=== PATIENT | male | born 1985 | race Caucasian/White ===

== ENCOUNTER 2017-03-08 09:40 | Inpatient (IN) ==
[2017-03-08] MEDS ORDERED: Ondansetron 4 MG/2 ML VIAL IVP ONE (10:01)
[2017-03-08] MEDS ORDERED: 0.9 % Sodium Chloride 1,000 ML IVC ONE ×3 (10:01→17:03)
--- NOTE | 2017-03-08 10:10 | Emergency Department Note ---
Disposition Clinical Impression: Kidney calculus, TESSIE (acute kidney injury), Acidosis, metabolic Disposition: Admitted As Inpatient Condition: Fair Abdominal Pain HPI - General Chief Complaint: ED Abdominal Pain Stated Complaint: vomiting Time Seen by Provider: 03/08/17 09:49 Source: patient Mode of arrival: ambulatory Limitations: no limitations Nursing Notes Reviewed: Yes Vital Signs Reviewed: Yes - History of Present Illness HPI Narrative: Patient presents to the ED with the chief complaint of abdominal pain and vomiting. Patient has a history of HIV that he states is well-controlled. He has had chronic, abdominal pain, but over the last few days has had new pain. He states that approximately 5 days ago he started having a decreased appetite, nausea and vomiting. Reports that it got significantly worse over the last 2 days. He reports that he has vomited probably 30 times in the last 48 hours. Nonbloody, but does state that it is bilious and is yellow. He said problems of his gallbladder before and is scheduled to get an ultrasound soon pending insurance approval. He is also had subjective fevers and chills. Has had decreased appetite. States his been unable to eat or drink anything in the last 24 hours and feels very dehydrated. He has not had any diarrhea. He does complain of some difficulty in urination. He has had a previous history of kidney stones about 6 or 7 months ago on the right and has an atrophied kidney on the left and is unsure if this could be related. There is no headache, changes in vision, neck stiffness, chest pain, difficulty breathing, penile discharge, pain or swelling of legs. He does have a history of hidradenitis from his HIV and states that he had a flareup on his scrotum a few days ago but has since resolved. Otherwise, there is no testicular pain. Pain Scale: 0 - Related Data Home Medications Medication Instructions Recorded Confirmed Cetirizine HCl [Zyrtec] 10 mg PO DAILY 03/08/17 03/08/17 Citalopram Hydrobromide [Celexa] 40 mg PO DAILY 03/08/17 03/08/17 Cyprohepatdine [Periactin] 4 mg PO BID 03/08/17 03/08/17 Divalproex Sodium [Depakote] 250 mg PO HS 03/08/17 03/08/17 Doxepin HCl 10 mg PO HS 03/08/17 03/08/17 Doxycycline 100 mg PO BID 03/08/17 03/08/17 Dronabinol [Marinol] 2.5 mg PO BID 03/08/17 03/08/17 Efavirenz/Emtricitab/Tenofovir 1 tab PO DAILY 03/08/17 03/08/17 [Atripla Tablet] Gabapentin [Neurontin] 800 mg PO QID 03/08/17 03/08/17 Glycopyrrolate [Robinul] 1 mg PO BID 03/08/17 03/08/17 HydrOXYzine Pamoate [Vistaril] 50 mg PO BID 03/08/17 03/08/17 L. Acidophilus/Pectin, [place] 1 cap PO DAILY 03/08/17 03/08/17 [Acidophilus Probiotic Capsule] Meloxicam [Mobic] 15 mg PO DAILY 03/08/17 03/08/17 Mirtazapine [Remeron] 15 mg PO HS 03/08/17 03/08/17 Pnv with Ca,No.72/Iron/FA [Pnv 1 tab PO DAILY 03/08/17 03/08/17 Plus Multivit Tab] Pregabalin [Lyrica] 150 mg PO BID 03/08/17 03/08/17 Allergies Allergy/AdvReac Type Severity Reaction Status Date / Time Cefaclor [From [facility]] Allergy Hives Verified 03/08/17 11:47 All systems ED: reviewed and negative except as stated. Constitutional: Reports: fever (subjective), chills Eyes: Denies: vision change Cardiovascular: Denies: chest pain Respiratory: Denies: cough, dyspnea Gastrointestinal: Reports: as per HPI, abdominal pain, nausea, vomiting. Denies : diarrhea, constipation, hematemesis, melena, hematochezia Genitourinary: Reports: as per HPI, genital lesions. Denies: hematuria, testicular pain Musculoskeletal: Denies: back pain, neck pain Integumentary: Reports: rash Neurological: Denies: headache Endocrine: Reports: fatigue Hematological/Lymphatic: Denies: easy bleeding, easy bruising Abdominal Pain PMH - Past Medical History Medical history: Reports: HIV/AIDS Male Surgical History: Reports: other - Social History Smoking status: Current every day smoker Alcohol use: Reports: none Drug use: Reports: none Physical Exam - General Limitations: no limitations General appearance: alert, in no apparent distress - Head Head exam: atraumatic, normocephalic, normal inspection - Eye Eye exam: Present: normal appearance, PERRL, EOMI - ENT ENT exam: normal exam, normal oropharynx, mucous membranes moist - Neck Neck exam: Present: normal inspection, full ROM, trachea midline. Absent: meningismus - Chest Chest inspection: Present: normal inspection, symmetric chest wall rise - Respiratory Respiratory exam: Present: normal lung sounds bilaterally - Cardiovascular Cardiovascular exam: Present: regular rate, normal rhythm, normal heart sounds - Abdominal Exam Abdominal exam: Present: soft, tenderness, guarding, hypoactive bowel sounds, tenderness at McBurney's Point, other (Hidradenitis lesions on stomach, report well controlled). Absent: distention, rebound, rigidity, organomegaly, Pimentel' s sign, Rovsing's sign Abdominal tenderness: Present: RLQ, moderate - Male exam: Present: other (Patient deferred) - Extremities Exam Extremities exam: Present: normal inspection, full ROM. Absent: tenderness, pedal edema - Expanded Lower Extremity Exam Hip/Pelvis exam: Present: pelvis stable - Neurological Exam Neurological exam: Present: alert, oriented X3 - Psychiatric Psychiatric exam: Present: normal affect, normal mood - Skin Skin exam: Present: warm, dry, intact, rash (Hidradenitis to abdomen, reports similar lesion on scrotum but deferred evaluation), other (slightly jaundiced). Absent: normal color, cyanosis, diaphoresis Course - Reevaluation(s) Reevaluation #1: Spoke with Dr. Meier with urology. Wanted to keep him NPO, talk with IR about possible nephrostomy tube and admit the hospitalist service. He may also require stenting later today. Spoke to the hospitalist and accepted admission. Urinalysis is pending due to Simon placement. Time: 11:39 Vital Signs Temperature 97.5 F L 03/08/17 09:41 Pulse Rate 81 03/08/17 09:41 Respiratory Rate 16 03/08/17 09:41 Blood Pressure 113/83 03/08/17 09:41 O2 Sat by Pulse Oximetry 100 03/08/17 09:41 Temperature 97.4 F L 03/08/17 14:21 Pulse Rate 79 03/08/17 14:21 Respiratory Rate 16 03/08/17 14:21 Blood Pressure 107/68 03/08/17 14:21 O2 Sat by Pulse Oximetry 98 03/08/17 14:22 Oxygen Delivery Oxygen Delivery Room Air Abdominal Pain - MDM Narrative Medical decision making narrative: I examined this patient and my medical decision-making was reviewed with the HORSE GROOMER/PA/Advanced Practice Nurse/Resident Physician. I agree with the documented findings, disposition and treatment plan as described except to the extent set forth below. Patient seen and evaluated by Dr. Houston and myself, please see his evaluation and management plan, I supervised the care of the patient outstay. Patient presents with lower abdominal pain nausea and vomiting. History of abdominal pain in the past as well as HIV. He states is no ill contacts at home. Retro-to make him more comfortable check labs he most likely will need a CT of his abdomen. He is in agreement with this plan. 1040 hrs.: Patient's labs are coming back. His creatinine has changed from 1.5 about a year ago to 7.4. He is also acidotic which I am thinking is probably due to his uremia. He does not show any signs of an infection. Is not febrile here. Organic continuous fluid CT his abdomen and then reassess. Then we will speak with nephrology and hospitalist for admission. 1130 hrs.: Abdomen/Pelvis CT 03/08/17 10:39 IMPRESSION: 4 mm proximal right ureteral stone causing moderate hydroureteronephrosis. D/ / Kiet Hernandez MD / Kiet Hernandez MD Interpreting Provider: Kiet Hernandez MD Spoke with urology, they are going to see the patient and they want him Nothing by mouth placing a Simon to help relieve his urinary retention and then they are going to see if they can do a stent today. We are speaking the hospitalist for admission. 1210 hrs.: Patient's urine is back no signs of infection does have blood in the urine. IR is ready for the patient so they will go over to IR first for the procedure and then if we have a bed ready for and they will go upstairs if not making come back to the emergency department. Patient's critical care time excluding separately billable procedures is 35 minutes. - Lab Data Result diagrams: 03/08/17 10:11 03/08/17 10:11 Lab Results 03/08/17 03/08/17 03/08/17 Range/Units 10:11 10:11 10:11 WBC 7.4 (4.3-11.1) K/mcL RBC 3.32 L (4.19-5.50) M/mcL Hgb 11.7 L (12.9-16.9) g/dL Hct 34.7 L (37.5-50.1) % MCV 104.5 H (83.0-100.0) fL MCH 35.2 H (28.0-33.3) pg MCHC 33.7 (31.6-35.5) g/dL RDW 14.6 H (11.5-14.5) % Plt Count 291 (140-400) K/mcL MPV 9.5 (9.4-12.4) fL Immature Gran % 2.0 (0-4) % Seg Neutrophils % 82.7 % Lymphocytes % 11.5 % Monocytes % 3.4 % Eosinophils % 0.1 % Basophils % 0.3 % Neutrophils # 6.1 (1.6-8.9) K/mcL Lymphocytes # 0.9 (0.6-4.6) K/mcL Monocytes # 0.3 (0.0-1.3) K/mcL Eosinophils # 0.0 (0.0-0.6) K/mcL Basophils # 0.0 (0.0-0.2) K/mcL PT 11.4 (9.4-12.1) Seconds INR 1.1 Sodium 138 (136-145) mEq/L Potassium 4.2 (3.5-4.5) mEq/L Chloride 115 H (98-109) mEq/L Carbon Dioxide 13 L (19-29) mEq/L BUN 52 H (8-26) mg/dL Creatinine 7.37 H (0.72-1.25) mg/dL Est GFR ( Amer) 10 L (> 60) Est GFR (Non-Af Amer) 9 L (> 60) BUN/Creatinine Ratio 7 (6-26) Glucose 113 H (70-99) mg/dL Calculated Osmolality 301 H (280-300) Calcium 8.8 (8.6-10.8) mg/dL Total Bilirubin 0.3 (0.2-1.2) mg/dL Direct Bilirubin 0.1 (0.0-0.5) mg/dL Indirect Bilirubin 0.2 (0.0-1.2) mg/dL AST 17 (5-34) Units/L ALT 23 (0-55) Units/L Alkaline Phosphatase 116 (38-126) Units/L Serum Total Protein 7.1 (6.0-8.3) g/dL Albumin 2.8 L (3.5-5.0) g/dL Globulin 4.3 H (2.4-3.5) g/dL Albumin/Globulin Ratio 0.7 L (1.1-2.2) Lipase 64 (8-78) Units/L Urine Color (Yellow) Urine Clarity (Clear) Urine pH (5.0-8.0) pH Units Ur Specific [place] (1.010-1.025) Urine Protein (Neg-Trace) mg/dL Urine Glucose (UA) (Normal) mg/dL Urine Ketones (Negative) mg/dL Urine Blood (Negative) Urine Nitrite (Negative) Urine Bilirubin (Negative) Urine Urobilinogen (Normal) mg/dL Ur Leukocyte Esterase (Negative) Urine Microscopic RBC (0-3) per hpf Urine Microscopic WBC (0-3) per hpf Ur Squamous Epith Cells (None-Few) per lpf Urine Bacteria (None-Few) per hpf Hyaline Casts (None-Few) per lpf Ur Culture Indicated? (NO) 03/08/17 Range/Units 11:43 WBC (4.3-11.1) K/mcL RBC (4.19-5.50) M/mcL Hgb (12.9-16.9) g/dL Hct (37.5-50.1) % MCV (83.0-100.0) fL MCH (28.0-33.3) pg MCHC (31.6-35.5) g/dL RDW (11.5-14.5) % Plt Count (140-400) K/mcL MPV (9.4-12.4) fL Immature Gran % (0-4) % Seg Neutrophils % % Lymphocytes % % Monocytes % % Eosinophils % % Basophils % % Neutrophils # (1.6-8.9) K/mcL Lymphocytes # (0.6-4.6) K/mcL Monocytes # (0.0-1.3) K/mcL Eosinophils # (0.0-0.6) K/mcL Basophils # (0.0-0.2) K/mcL PT (9.4-12.1) Seconds INR Sodium (136-145) mEq/L Potassium (3.5-4.5) mEq/L Chloride (98-109) mEq/L Carbon Dioxide (19-29) mEq/L BUN (8-26) mg/dL Creatinine (0.72-1.25) mg/dL Est GFR ( Amer) (> 60) Est GFR (Non-Af Amer) (> 60) BUN/Creatinine Ratio (6-26) Glucose (70-99) mg/dL Calculated Osmolality (280-300) Calcium (8.6-10.8) mg/dL Total Bilirubin (0.2-1.2) mg/dL Direct Bilirubin (0.0-0.5) mg/dL Indirect Bilirubin (0.0-1.2) mg/dL AST (5-34) Units/L ALT (0-55) Units/L Alkaline Phosphatase (38-126) Units/L Serum Total Protein (6.0-8.3) g/dL Albumin (3.5-5.0) g/dL Globulin (2.4-3.5) g/dL Albumin/Globulin Ratio (1.1-2.2) Lipase (8-78) Units/L Urine Color Yellow (Yellow) Urine Clarity Clear (Clear) Urine pH 6.5 (5.0-8.0) pH Units Ur Specific [place] 1.017 (1.010-1.025) Urine Protein 30 H (Neg-Trace) mg/dL Urine Glucose (UA) 100 H (Normal) mg/dL Urine Ketones Negative (Negative) mg/dL Urine Blood Moderate H (Negative) Urine Nitrite Negative (Negative) Urine Bilirubin Negative (Negative) Urine Urobilinogen Normal (Normal) mg/dL Ur Leukocyte Esterase Negative (Negative) Urine Microscopic RBC 30-50 H (0-3) per hpf Urine Microscopic WBC 0-3 (0-3) per hpf Ur Squamous Epith Cells Many H (None-Few) per lpf Urine Bacteria None Seen (None-Few) per hpf Hyaline Casts None Seen (None-Few) per lpf Ur Culture Indicated? NO (NO)
[2017-03-08 10:17] LABS: Basophils % 0.3 %; Eosinophils % 0.1 %; Hematocrit 34.7 % (37.5-50.1); Hemoglobin 11.7 g/dL (12.9-16.9); Lymphocytes # 0.9 K/mcL (0.6-4.6); Lymphocytes % 11.5 %; Mean Corpuscular HGB Conc 33.7 g/dL (31.6-35.5); Mean Corpuscular Hemoglobin 35.2 pg (28.0-33.3); Mean Corpuscular Volume 104.5 fL (83.0-100.0); Mean Platelet Volume 9.5 fL (9.4-12.4); Monocytes # 0.3 K/mcL (0.0-1.3); Monocytes % 3.4 %; Neutrophils # 6.1 K/mcL (1.6-8.9); Platelet Count 291 K/mcL (140-400); Red Blood Count 3.32 M/mcL (4.19-5.50); Red Cell Distribution Width 14.6 % (11.5-14.5); Segmented Neutrophils % 82.7 %
[2017-03-08 10:25] LABS: INR 1.1; Prothrombin Time 11.4 Seconds (9.4-12.1)
[2017-03-08 10:33] LABS: Albumin 2.8 g/dL (3.5-5.0); Albumin/Globulin Ratio 0.7 (1.1-2.2); Bilirubin,Direct 0.1 mg/dL (0.0-0.5); Bilirubin,Indirect 0.2 mg/dL (0.0-1.2); Bilirubin,Total 0.3 mg/dL (0.2-1.2); Calcium 8.8 mg/dL (8.6-10.8); Globulin 4.3 g/dL (2.4-3.5); Potassium 4.2 mEq/L (3.5-4.5); Total Protein 7.1 g/dL (6.0-8.3)
[2017-03-08] MEDS ORDERED: *HR* Morphine 2 MG/ML SYRINGE IV ONE (10:46)
--- NOTE | 2017-03-08 11:58 | IR Consult Note ---
Date of Encounter: 03/08/17 Time of Encounter: 11:55 Assessment and Plan (1) Kidney calculus Current Visit: Yes Status: Acute Obstructing right ureteral stone. Plan right nephrostomy and possible antegrade ureteral stent. Consult date: 03/08/17 Ordering Clinician: Robert Meier History of present illness: 31 year-old male presents to ER with obstructing proximal ureteral stone and multiple other stones in right kidney.Per urology he will need PCNL in the near future but immediate concern is relieving the urinary obstruction so he is referred for right nephrostomy and possible antegrade ureteral stent. Consult Comment: Thank you for the consult. Call [facility] with questions or concerns. Past Med Surg Social Fam HX - Past Medical History Medical history: HIV/AIDS - Social History Smoking Status: Current every day smoker Smokeless Tobacco Status: No Alcohol use: none Drug use: none Medications and Allergies Atripla Tablet 02/19/17 [History] Citalopram 02/19/17 [History] Cyprohepatdine 02/19/17 [History] Doxycycline 02/19/17 [History] Gabapentin 02/19/17 [History] Gnp Vitamins Tablet 02/19/17 [History] Lyrica 02/19/17 [History] Meloxicam 02/19/17 [History] MetroNIDAZOLE [Flagyl] 500 mg PO BID #20 tablet 02/19/17 [Rx] Seroquel 02/19/17 [History] Zyrtec 02/19/17 [History] Allergies Cefaclor [From Ceclor] Allergy (Verified 03/08/17 11:47) Hives Exam Vital Signs, Last 4 Hours Temp Pulse Resp BP Pulse Ox 03/08/17 11:39 81 104/63 100 03/08/17 10:24 77 125/79 100 03/08/17 09:52 84 117/81 100 03/08/17 09:41 97.5 F L 81 16 113/83 100 Results Reviewed 03/08/17 10:11 03/08/17 10:11 Lab Results 03/08/17 03/08/17 03/08/17 10:11 10:11 10:11 WBC 7.4 RBC 3.32 L Hgb 11.7 L Hct 34.7 L MCV 104.5 H MCH 35.2 H MCHC 33.7 RDW 14.6 H Plt Count 291 MPV 9.5 Neutrophils # 6.1 Lymphocytes # 0.9 Monocytes # 0.3 Eosinophils # 0.0 Basophils # 0.0 PT 11.4 INR 1.1 Sodium 138 Potassium 4.2 Chloride 115 H Carbon Dioxide 13 L BUN 52 H Creatinine 7.37 H Est GFR ( Amer) 10 L Est GFR (Non-Af Amer) 9 L BUN/Creatinine Ratio 7 Glucose 113 H Calcium 8.8 Consult Discharge Plan - Plan Referrals: NO,PCP [Non-Partnered Physician] -
[2017-03-08 12:07] LABS: Bilirubin,Urine Negative (Negative); Blood,Urine Moderate (Negative); Clarity,Urine Clear (Clear); Color,Urine Yellow (Yellow); Glucose,Urine (UA) 100 mg/dL (Normal); Ketones,Urine Negative (Negative); Leukocyte Esterase,Urine Negative (Negative); Nitrite,Urine Negative (Negative); PH,Urine 6.5 pH Units (5.0-8.0); Protein,Urine 30 mg/dL (Neg-Trace); Specific Gravity,Urine 1.017 (1.010-1.025); Urobilinogen,Urine Normal (Normal)
[2017-03-08 12:09] LABS: Bacteria,Urine None Seen per hpf (None-Few); Hyaline Casts,Urine None Seen per lpf (None-Few); RBC,Urine 30-50 per hpf (0-3); Squamous Epithelial Cell,Urine Many per lpf (None-Few); WBC,Urine 0-3 per hpf (0-3)
--- NOTE | 2017-03-08 12:28 | Pre-Sedation Evaluation ---
Pre-sedation evaluation - Pre-sedation checklist Date of procedure: 03/08/17 Procedure: nephrostomy tube Recent Vitals: Last Vital Signs Temp 97.5 F L 03/08/17 09:41 Pulse 81 03/08/17 11:39 Resp 16 03/08/17 09:41 BP 104/63 03/08/17 11:39 Pulse Ox 100 03/08/17 11:39 H&P (including ROS) documented in medical record: Yes Previous reaction to sedatives/anesthetics: No Dietary Status: NPO after Midnight Dentition: No loose teeth or bridges ASA Classification *see protocol: CLASS II-Mild systemic disease Plan of Care: Pt appropriate candidate for procedure/moderate/conscious sedation , Risks/benefits of procedure/sedation discussed w/ patient/family
[2017-03-08] MEDS ORDERED: 0.9 % Sodium Chloride 500 ML ONE (12:31)
[2017-03-08] MEDS ORDERED: Clindamycin 600 MG/50 ML 600 MG/50 ML IV.SOLN IVPB STA (12:33)
[2017-03-08] MEDS: *HR* Midazolam HCl 2 MG/2 ML VIAL IVP PRN ×2 (12:53→13:14)
[2017-03-08] MEDS: *HR* FentaNYL (PF) 100 MCG/2 ML VIAL IVP ONE ×3 (12:53→13:37)
[2017-03-08] MEDS ORDERED: 0.9 % Sodium Chloride 1,000 ML ONE (13:02)
[2017-03-08] MEDS ORDERED: *HR* FentaNYL (PF) 100 MCG/2 ML VIAL ONE (13:24)
[2017-03-08] MEDS ORDERED: 0.9 % Sodium Chloride 1,000 ML IVC SCH ×2 (13:45→15:47)
[2017-03-08] MEDS ORDERED: Naloxone 0.4 MG/ML INJ IVP PRN (13:45)
[2017-03-08] MEDS ORDERED: Ondansetron 4 MG/2 ML VIAL IVP PRN (13:47)
[2017-03-08] MEDS ORDERED: Acetaminophen 325 MG TABLET PO PRN (13:47)
--- NOTE | 2017-03-08 13:51 | IR Procedure Note ---
Date of procedure: 03/08/17 Consent Obtained: Written consent Timeout: Correct patient and procedure verified, Correct site verified, Time out performed, Skin prep completed Local anesthetic: Lidocaine 1% Indications: Obstructing right ureteral stone Procedure Performed: Right nephrostomy placement Results/Findings: Right 10F PCN placement Complications: None; Tolerated procedure well (Monitor on floor)
--- NOTE | 2017-03-08 13:54 | Event Note ---
Date of Encounter: 03/08/17 Time of Encounter: 13:53 patient seen in IR today. full consult to follow tomorrow am once patient recovered from sedation. will need to keep right nephrostomy and so cath in place.
--- NOTE | 2017-03-08 14:46 | Internal Med History&Physical ---
Date of Encounter: 03/08/17 Time of Encounter: 15:00 Assessment and Plan (1) Hydronephrosis Current visit: Yes Status: Acute 1 Patient has been expereincing N/V right sided abd pain for approx one week. CT of abd revealed 4mm proximal right ureteral stone causig moderate hydronephrosis - Urology consulted nephrostomy tube placed per IR. 2 monitor I/O 3 monitor for s/sx of infection, monitor CBC 4 there is no s/sx of urinary infection - preop ATB given Qualifiers: Hydronephrosis type: with ureteral calculous obstruction Qualified Code(s) : N13.2 - Hydronephrosis with renal and ureteral calculous obstruction (2) TESSIE (acute kidney injury) Current visit: Yes Status: Acute 1 patient has been experiencing difficulty urinating abd pain - creatinine 7 up from previous which was 1.53,. Patient has hx of atrophy of left kidney, had right ureteral stone, hydronephrosis, and on NSAID as well as other renal toxic medications will monitor creatininie 2 monitor I/O jordan weight 3 avoid NSAIDS and other nephrotoxins 4 we will consult nephrology 5 will administer 3 Liter of fluid and administer IVF (3) HIV (human immunodeficiency virus infection) Current visit: Yes Status: Chronic 1 We will hold Atripla for now Will recheck creatinine, in am. May need to consult ID concerning dosage and poor renal function (4) DVT prophylaxis Current visit: Yes Status: Acute SCD, Internal Medicine - H&P: HPI Chief complaint: abd pain Admitted From: Emergency Dept Plans for Post Hospital Care: Home History of present illness: Mr. Muñoz is a 31 year old male with a past medical hx of anxiety/ bipolar disorder, HIV, Left kidney atrophy. The patient has chronic abdominal pain over past week he has been experiencing increasing pain on his right side radiating to right flank which has been unusual. This pain has been coming and going and is worse upon movement. He has been experiencing some difficulty initiating urinary stream and denies any burning or dysuria. He also states that he has subjective fevers and chills. On Monday he began to experience episodes of nausea and vomiting. Vomiting continued until yesterday. He said he had several episodes bile like emesis and was unable to eat or drink. He denies any hematemesis, hematuria or melena or hematochezia. He presented to the ER with the above complaints according to ER records CT of abdomen was obtained which did reveal 4 mm proximal right ureteral stone causing moderate hydronephrosis. Lab work to not reveal any leukocytosis however was acidotic with bicarbonate 13 his creatinine was 7.37 (which is up from last year at 1.53 ) BUN 52. Urinalysis was obtained which did not reveal any urinary infection. He is afebrile hemodynamically stable presentation. Patient CD4 count was 21, 000 and has an undetectable viral load. Urology was consulted patient was taken to IR urostomy tube was placed. Postoperatively patient appears to be hemodynamically stable urostomy is draining clear yellow urine Simon is in place , draining clear yellow urine as well. Patient denies any pain or discomfort at this time appears to be hemodynamically stable. I reviewed this case with Dr. Avendaño who agrees with plan. Past Med Surg Social Fam HX - Past Medical History Medical history: HIV/AIDS - Social History Smoking Status: Current every day smoker Packs per day: 1 Smokeless Tobacco Status: No Alcohol use: none Drug use: none - Family History Mother Hx Family Cardiac Disorders: Yes Hx Family Cancer: Yes Internal Medicine - H&P: Meds Cetirizine HCl [Zyrtec] 10 mg PO DAILY 03/08/17 [History] Citalopram Hydrobromide [Celexa] 40 mg PO DAILY 03/08/17 [History] Cyprohepatdine [Periactin] 4 mg PO BID 03/08/17 [History] Divalproex Sodium [Depakote] 250 mg PO HS 03/08/17 [History] Doxepin HCl 10 mg PO HS 03/08/17 [History] Doxycycline 100 mg PO BID 03/08/17 [History] Dronabinol [Marinol] 2.5 mg PO BID 03/08/17 [History] Efavirenz/Emtricitab/Tenofovir [Atripla Tablet] 1 tab PO DAILY 03/08/17 [History ] Gabapentin [Neurontin] 800 mg PO QID 03/08/17 [History] Glycopyrrolate [Robinul] 1 mg PO BID 03/08/17 [History] HydrOXYzine Pamoate [Vistaril] 50 mg PO BID 03/08/17 [History] L. Acidophilus/Pectin, [place] [Acidophilus Probiotic Capsule] 1 cap PO DAILY [History] Meloxicam [Mobic] 15 mg PO DAILY 03/08/17 [History] Mirtazapine [Remeron] 15 mg PO HS 03/08/17 [History] Pnv with Ca,No.72/Iron/FA [Pnv Plus Multivit Tab] 1 tab PO DAILY [History] Pregabalin [Lyrica] 150 mg PO BID 03/08/17 [History] Allergies Cefaclor [From [facility]] Allergy (Verified 03/08/17 11:47) Hives All Systems PM: A 10-system review of systems was performed and is negative for pertinent findings except as documented above in the HPI. - Constitutional Constitutional: fever(s), night sweats - Cardiovascular Cardiovascular ROS IM: no chest pain, no diaphoresis, no dyspnea, no lightheadedness, no palpitations, no syncope - Respiratory Respiratory: no cough, no dyspnea, no wheezing, no excessive phlegm production - Gastrointestinal Gastrointestinal: abdominal pain, nausea, vomiting - Genitourinary Genitourinary ROS male: difficulty urinating, flank pain - Musculoskeletal Musculoskeletal ROS IM: no numbness, no tingling - Integumentary Integumentary IM: as per HPI - Neurological Neurological ROS: no confusion, no convulsions, no focal weakness, no numbness, no tingling, no tremor(s) - Psychiatric Psychiatric: anxiety, mood swings - Constitutional Vitals: Temp Pulse Resp BP Pulse Ox 97.4 F L 79 16 107/68 98 03/08/17 14:21 03/08/17 14:21 03/08/17 14:21 03/08/17 14:21 03/08/17 14:22 General appearance: Present: A&O X 3, answers questions appropriately - Head Head exam: Present: atraumatic, normocephalic - Eye Eye exam: Present: PERRL, conjuntiva pink, sclera anicteric Pupils: Present: PERRL - Respiratory Respiratory exam: Present: CTAB. Absent: accessory muscle use, rales, rhonchi, wheezes - Cardiovascular Cardiovascular exam: Present: RRR, +S1, +S2. Absent: diastolic murmur, gallop, rubs, systolic murmur - GI/Abdominal GI/Abdominal exam: Present: normal bowel sounds, soft, no peritoneal signs. Absent: distended, tenderness - Extremities Exam Extremities exam: Present: warm, radial pulses palpable and symetrical. Absent : calf tenderness, cyanotic, pedal edema - Back Exam Additional comments: Nephrostomy tube to right flank intact no redness or drainage or swelling noted. - Skin Additional comments: Patient has circular wounds in different stages of healing. Many are crusted over, no drainage noted Internal Med - H&P Results - Labs CBC & Chem 7: 03/08/17 10:11 03/08/17 10:11 - Diagnostic Studies Other Images Additional comments: Guidance Needle Placement Ultrasound 03/08/17 00:00 IMPRESSION: 1. Obstructing proximal right ureteral calculus with unsuccessful attempt at antegrade ureteral stent as discussed above. 2. Right 10 [place] nephrostomy placement. D/ / Michael Hartman MD / Michael Hartman MD Interpreting Provider: Michael Hartman MD Incomplete Interventional Procedure 03/08/17 00:00 IMPRESSION: 1. Obstructing proximal right ureteral calculus with unsuccessful attempt at antegrade ureteral stent as discussed above. 2. Right 10 [place] nephrostomy placement. D/ / Michael Hartman MD / Michael Hartman MD Interpreting Provider: Michael Hartman MD Nephrostomy 03/08/17 00:00 IMPRESSION: 1. Obstructing proximal right ureteral calculus with unsuccessful attempt at antegrade ureteral stent as discussed above. 2. Right 10 [place] nephrostomy placement. D/ / Michael Hartman MD / Michael Hartman MD Interpreting Provider: Michael Hartman MD Abdomen/Pelvis CT 03/08/17 10:39 IMPRESSION: 4 mm proximal right ureteral stone causing moderate hydroureteronephrosis. D/ / Kiet Hernandez MD / Kiet Hernandez MD Interpreting Provider: Keit Hernandez MD
[2017-03-08] MEDS ORDERED: Nicotine 7 MG PATCH.TD24 TD SCH ×2 (15:00→15:15)
[2017-03-08] MEDS: Nicotine 14 MG PATCH.TD24 TD SCH (15:30)
--- NOTE | 2017-03-08 16:54 | Event Note ---
Date of Encounter: 03/08/17 Time of Encounter: 16:49 Patient seen and examined withpractitioner. 31-year-old male with HIV who strictly following up with specialist CD4 count 2100 and viral load undetectable was a history of left atrophic nonfunctioning kidney for unclear reason presents with one-week history of right flank and right lower quadrant abdominal pain. He mentioned that for the past 2 days he has not been urinating. Workup revealed acute renal failure probably due to acute tubular necrosis. Lisa up to 7 range these lying around 1.5 6 month ago. Patient was immediately taken to the interventional radiology suite and percutaneous nephrostomy tube was placed. During my interview patient is having urine in the Simon catheter as well as nephrostomy tube. 3 L bolus of NS will be given. continue normal saline hydration 150 mls an hour. There is no evidence of urinary tract infection and therefore will hold off antibiotics other than the periprocedural antibiotics. Follow intake and output. No indication for dialysis. Potassium is normal no clinical overload. Nephrology consultation. Full code. Avoid nonsteroidal anti-inflammatory drugs and other nephrotoxic
[2017-03-08] MEDS ORDERED: *HR* Heparin 5,000 UNIT/ML VIAL SQ SCH (18:00)
--- NOTE | 2017-03-08 18:05 | Nephrology Consult Note ---
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 at this time Continue IVF and monitor UOP closely Continue to avoid nephrotoxins if possible Will check urine for sodium, creatinine, protein and UA Will check CPK and uric acid levels (2) Acidosis, metabolic Current Visit: Yes Status: Acute Continue NS for now but will repeat BMP and adjust fluids by adding bicarb gtt if needed History of Present Illness - Reason for Consult Consult date: 03/08/17 Acute Kidney Injury, Chronic Kidney Disease Requesting physician: Heather Calvo - History of Present Illness 31 yo male with HIV viral load undetectable on atripla, L atrophic kidney, anxiety and bipolar d/o admitted with a week of abdominal discomfort and N/V found on CT abd/plevis to have R ureteral stone with mild hydroureteronephrosis. SCr noted at 7, GFR 9 previous baseline was 1.53, GFR 53. s/p nephrosomy tube placement per IR. Patient reports being aware of atrophy left kidney some 6 months ago when it was found incidentally on imaging but no workup done yet for this. He also admits to excessive NSAIDs use over time. He reports decreased UOP for several days prior to admission. Past Med Surg Social Fam HX - Past Medical History Medical history: HIV/AIDS - Social History Smoking Status: Current every day smoker Packs per day: 1 Smokeless Tobacco Status: No Alcohol use: none Drug use: none - Family History Mother Hx Family Cardiac Disorders: Yes Hx Family Cancer: Yes Medications and Allergies Cetirizine HCl [Zyrtec] 10 mg PO DAILY 03/08/17 [History] Citalopram Hydrobromide [Celexa] 40 mg PO DAILY 03/08/17 [History] Cyprohepatdine [Periactin] 4 mg PO BID 03/08/17 [History] Divalproex Sodium [Depakote] 250 mg PO HS 03/08/17 [History] Doxepin HCl 10 mg PO HS 03/08/17 [History] Doxycycline 100 mg PO BID 03/08/17 [History] Dronabinol [Marinol] 2.5 mg PO BID 03/08/17 [History] Efavirenz/Emtricitab/Tenofovir [Atripla Tablet] 1 tab PO DAILY 03/08/17 [History ] Gabapentin [Neurontin] 800 mg PO QID 03/08/17 [History] Glycopyrrolate [Robinul] 1 mg PO BID 03/08/17 [History] HydrOXYzine Pamoate [Vistaril] 50 mg PO BID 03/08/17 [History] L. Acidophilus/Pectin, [place] [Acidophilus Probiotic Capsule] 1 cap PO DAILY [History] Meloxicam [Mobic] 15 mg PO DAILY 03/08/17 [History] Mirtazapine [Remeron] 15 mg PO HS 03/08/17 [History] Pnv with Ca,No.72/Iron/FA [Pnv Plus Multivit Tab] 1 tab PO DAILY [History] Pregabalin [Lyrica] 150 mg PO BID 03/08/17 [History] Allergies Cefaclor [From [facility]] Allergy (Verified 03/08/17 11:47) Hives Review of Systems All Systems: reviewed and no additional remarkable complaints except as stated ( 10 systems reviewed) Exam - Vital Signs Vital signs: Initial Vital Signs Temp Pulse Resp BP Pulse Ox 97.5 F L 81 16 113/83 100 03/08/17 09:41 03/08/17 09:41 03/08/17 09:41 03/08/17 09:41 03/08/17 09:41 Vital Signs - Last 8 Hours Temp Pulse Resp BP Pulse Ox 03/08/17 14:22 98 03/08/17 14:21 97.4 F L 79 16 107/68 98 Intake and Output 03/08/17 03/08/17 03/08/17 07:59 15:59 23:59 Output Total 1370 / 1370 875 / 875 Balance -1370 / -370 -875 / -875 Output: Left Nephrostomy 325 / 325 Right Nephrostomy 195 / 195 Catheter 850 / 850 500 / 500 Wound Drainage 375 / 375 Right 375 / 375 - General Appearance General appearance: well-developed, well-nourished EENT: ATNC, mucous membranes moist Neck: no JVD, supple Respiratory: clear Cardiology: no edema, normal S1, normal S2 Gastrointestinal: no tenderness, no guarding Integumentary: warm and dry Neurologic: no focal deficit Musculoskeletal: no deformities Psychiatric: mood/affect appropriate Results - Lab Results 03/10/17 02:55 03/10/17 02:55 Most recent lab results Calcium 8.8 mg/dL (8.6-10.8) 03/08/17 10:11 Consult Discharge Plan - Plan Referrals: Ozzie Fall MD [Primary Care Provider] -
[2017-03-08] MEDS: *HR* HYDROcodone/Acet 5/325 mg TABLET PO PRN (18:13)
[2017-03-08 19:17] LABS: VBG HCO3 9.5 mEq/L (21-27)
[2017-03-08 19:21] LABS: VBG PH 7.14 pH Units (7.32-7.42)
[2017-03-08] MEDS: Pregabalin 25 MG CAPSULE PO SCH (20:29)
[2017-03-08] MEDS: Divalproex (24 HR) 250 MG TABLET PO SCH (20:29)
[2017-03-08] MEDS: Mirtazapine 15 MG TABLET PO SCH (20:29)
[2017-03-08] MEDS: *HR* Morphine 2 MG/ML SYRINGE IVP PRN (20:30)
[2017-03-08 20:45] LABS: Potassium 3.7 mEq/L (3.5-4.5)
[2017-03-08] MEDS ORDERED: DOXEPIN HCL 10 MG PO SCH (21:00)
[2017-03-08] MEDS ORDERED: NON-FORMULARY MEDICATION 1 EACH EACH (Gabapentin [Neurontin] 300 MG) PO SCH (21:00)
[2017-03-08] MEDS ORDERED: PREGABALIN 25 MG PO SCH (21:00)
[2017-03-08] MEDS: Sodium Bicarbonate 150 MEQ in D5% in Water 1,000 ML IVC SCH (21:31)
[2017-03-09 03:13] LABS: Protein/Creatinine Ratio,Urine 1.2 mg/mg (0-0.20)
[2017-03-09 04:45] LABS: Basophils % 0.4 %; Eosinophils # 0.2 K/mcL (0.0-0.6); Eosinophils % 2.1 %; Hematocrit 29.3 % (37.5-50.1); Immature Granulocytes % 0.8 % (0-4); Lymphocytes # 2.7 K/mcL (0.6-4.6); Lymphocytes % 37.6 %; Mean Corpuscular HGB Conc 33.4 g/dL (31.6-35.5); Mean Corpuscular Hemoglobin 34.9 pg (28.0-33.3); Mean Corpuscular Volume 104.3 fL (83.0-100.0); Monocytes # 0.5 K/mcL (0.0-1.3); Monocytes % 7.3 %; Neutrophils # 3.8 K/mcL (1.6-8.9); Platelet Count 269 K/mcL (140-400); Red Blood Count 2.81 M/mcL (4.19-5.50); Red Cell Distribution Width 14.6 % (11.5-14.5); Segmented Neutrophils % 51.8 %
[2017-03-09 04:59] LABS: Potassium 3.1 mEq/L (3.5-4.5)
[2017-03-09 05:03] LABS: Hemoglobin 9.8 g/dL (12.9-16.9)
[2017-03-09] MEDS: Sodium Bicarbonate 150 MEQ in D5% in Water 1,000 ML IVC SCH ×3 (05:47→19:40)
[2017-03-09] MEDS: Pregabalin 25 MG CAPSULE PO SCH ×2 (07:24→21:25)
[2017-03-09] MEDS: Nicotine 14 MG PATCH.TD24 TD SCH (07:24)
[2017-03-09] MEDS: *HR* HYDROcodone/Acet 5/325 mg TABLET PO PRN ×3 (08:02→18:06)
[2017-03-09 08:10] LABS: VBG HCO3 18.6 mEq/L (21-27); VBG PH 7.31 pH Units (7.32-7.42)
[2017-03-09] MEDS ORDERED: Potassium Chloride Elixir 20 MEQ/15 ML UDC PO ONE (08:27)
--- NOTE | 2017-03-09 08:54 | Nephrology Progress Note ---
<Rc Tony - Last Filed: 03/09/17 17:29> Date of Encounter: 03/09/17 Time of Encounter: 09:30 - Assessment and Plan (1) TESSIE (acute kidney injury) Status: Acute Improving TESSIE secondary to right ureteral obstruction by renal calculus. History of left renal atrophy. Urology consulted and patient underwent nephrostomy tube placement per IR yesterday. Creatinine on presentation was 7.37, today improved at 2.37. Avoid nephrotoxins as possible, holding Atripla. Continue to monitor K+, Mg, Phos and replace electrolytes as needed. Continue IVFs. Continue bicarb for 24 hours. Recheck BMP this evening, IM already order BMP for approx 4pm. (2) Kidney calculus Status: Acute (3) Hydronephrosis Status: Acute Qualifiers: Hydronephrosis type: with ureteral calculous obstruction Qualified Code(s) : N13.2 - Hydronephrosis with renal and ureteral calculous obstruction (4) Acidosis, metabolic Status: Acute Improving. pH 7.14 -> 7.31 (5) HIV (human immunodeficiency virus infection) Status: Chronic Subjective Principal diagnosis: R ureteral obstruction Interval history: Afebrile. Good nephrostomy output, good urine output. Patient states continued cramping R back and flank pain, but better than on initial presentation. Objective - Vital Signs Vital signs: Vital Signs Temp Pulse Resp BP Pulse Ox 03/09/17 04:21 98.0 F 78 15 97/64 97 03/08/17 23:42 98.1 F 78 14 95/56 99 03/08/17 20:41 98.5 F 78 14 115/77 100 03/08/17 14:22 98 03/08/17 14:21 97.4 F L 79 16 107/68 98 Intake and Output 03/08/17 03/09/17 03/09/17 23:59 07:59 15:59 Intake Total 1100 / 1100 1150 / 1150 Output Total 2575 / 2575 800 / 800 Balance -1475 / -1475 350 / 350 Intake: IV Fluids 1000 / 1000 1150 / 1150 0.9 % Sodium Chloride 1, 1000 / 1000 000 ML @ 3750 mls/hr IVC .Q16M ONE Rx#:[id number] Sodium Bicarbonate 150 1150 / 1150 MEQ In Dextrose 5% 1,000 ML @ 150 mls/hr IVC . Q7H40M [facility] Rx#:[id number] Oral 100 / 100 0 / 0 Output: Right Nephrostomy 250 / 250 300 / 300 Catheter 850 / 850 150 / 150 Wound Drainage 1475 / 1475 350 / 350 Right 1475 / 1475 350 / 350 Other: Weight 69.9 kg Patient Weight 03/09/17 23:59 Weight 69.9 kg - General Appearance General appearance: Present: well-developed, well-nourished, appears started age EENT: Present: ATNC, mucous membranes moist, hearing intact, vision intact Neck: Present: supple Respiratory: Present: clear Cardiology: Present: regular rate, regular rhythm Additional Comments: R nephrostomy tube in place, with serosangious fluid in bag. Integumentary: Present: no rash, warm and dry Neurologic: Present: no focal deficit, alert and oriented x3 Musculoskeletal: Present: no deformities, no erythema, no cyanosis Psychiatric: Present: mood/affect appropriate, cooperative - Lab 03/09/17 03:50 03/09/17 03:50 Most recent lab results Calcium 8.0 mg/dL (8.6-10.8) L 03/09/17 03:50 Urine Creatinine 54 mg/dL 03/09/17 02:42 Urine Sodium 93.0 mEq/L 03/09/17 02:42 Urine Total Protein 65 mg/dL (1-14) H 03/09/17 02:42 Consult Discharge Plan - Plan Instructions: Potassium Chloride (By mouth), Acute Kidney Injury (GEN), Hydronephrosis (GEN), Nephrostomy Tube Care (DC), Metabolic Acidosis ( GEN) Additional Instructions: PLEASE KEEP DRINKING PLENTY OF FLUIDS, IDEALLY GATORADE OR POWERAIDE WITH ELECTROLYTES. UNFORTUNATELY, SOME OF YOUR MEDICATIONS CAN INDUCE RECURRENT RENAL STONES FOLLOW UP IN THE UROLOGY CLINIC. FOLLOW UP WITH YOUR PRIMARY CARE DOCTOR NEXT February. PLEASE MAKE SURE TO TAKE A BLOOD TEST TO CHECK YOUR KIDNEY FUNCTION NEXT WEEK. Referrals: Robert Meier MD [Partnered Physician] - 04/03/17 9:30 am Ozzie Fall MD [Primary Care Provider] - (CALL OFFICE TUESDAY, MARCH 13 - RE: APPOINTMENT FOR WEDNESDAY, MARCH 14.) Prescriptions: HYDROcodone/Acet 5/325 mg [Towner 5-325 mg] 1 tab PO Q8HR PRN #10 tablet PRN Reason: Moderate Pain (4-6) Nicotine Patch [Nicoderm] 14 mg TD DAILY #30 patch.td24 Potassium Chloride 40 meq PO DAILY #12 tab.er.prt <Ceferino Zhu - Last Filed: 03/16/17 16:07> Date of Encounter: 03/09/17 - Assessment and Plan (1) TESSIE (acute kidney injury) Status: Resolved (2) Acidosis, metabolic Status: Resolved Objective - Lab 03/10/17 02:55 03/10/17 12:52 Most recent lab results Calcium 8.1 mg/dL (8.6-10.8) L 03/10/17 12:52 Phosphorus 1.8 mg/dL (2.3-4.7) L 03/10/17 02:55 Magnesium 1.4 mg/dL (1.6-2.6) L 03/10/17 02:55 Urine Creatinine 54 mg/dL 03/09/17 02:42 Urine Sodium 93.0 mEq/L 03/09/17 02:42 Urine Total Protein 65 mg/dL (1-14) H 03/09/17 02:42 - Attending Attestation I examined this patient and my medical decision-making was reviewed with the LOG CHECK SCALER/PA/Advanced Practice Nurse/Resident Physician. I agree with the documented findings, disposition and treatment plan as described except to the extent set forth below. Pt seen and examined feeling better. SCr drastically improving consistent with postobstructive diuresis with SCr at 2.37. Will continue bicarb gtt for acidosis which is also improving and replete lytes as needed. No indication for HUMAN SERVICES PROFESSIONAL at this time.
[2017-03-09] MEDS ORDERED: CITALOPRAM HYDROBROMIDE 40 MG PO SCH (09:00)
[2017-03-09] MEDS ORDERED: EFAVIRENZ/EMTRICITAB/TENOFOVIR 1 EACH TABLET PO SCH ×2 (09:00→12:00)
[2017-03-09] MEDS ORDERED: NON-FORMULARY MEDICATION 1 EACH EACH (Pnv With Ca,No.72/Iron/Fa [Pnv Prenatal Plus Multivi PO SCH (09:00)
[2017-03-09] MEDS ORDERED: NON-FORMULARY MEDICATION 1 EACH EACH (Cetirizine Hcl [Zyrtec] 10 MG) PO SCH (09:00)
[2017-03-09] MEDS ORDERED: [UNRECOGNIZED DRUG - OTHER] PO SCH (09:00)
[2017-03-09 09:22] LABS: Magnesium 1.6 mg/dL (1.6-2.6)
[2017-03-09] MEDS: *HR* Morphine 2 MG/ML SYRINGE IVP PRN ×3 (10:28→19:51)
--- NOTE | 2017-03-09 13:54 | Internal Med Progress Note ---
<Thee Alvarez - Last Filed: 03/09/17 15:51> Date of Encounter: 03/09/17 Time of Encounter: 13:52 - Assessment and plan (1) TESSIE (acute kidney injury) Current Visit: Yes Status: Acute Assessment and plan: Etiology is unclear at this time. Likely from post obstruction from right ureterollithias. S/P Nephrostolmy tube placement. Also volume depleted form N/V. ( possibly from uremia) in the setting of taking Atripla. SCR has markedly improved with pressure relief and volume replacement. I think it is unlikely to be FSGS or HIVAN. Nephrology is following. Appreciate their input and recommendations. (2) Hydronephrosis Current Visit: Yes Status: Acute Assessment and plan: S/P nephrostomy placement. Qualifiers: Hydronephrosis type: with ureteral calculous obstruction Qualified Code(s) : N13.2 - Hydronephrosis with renal and ureteral calculous obstruction (3) HIV (human immunodeficiency virus infection) Current Visit: Yes Status: Chronic Assessment and plan: CD4 count 2100 Spoke with pharmacy about atripla. Already received dose. Will look at renal function tomorrow. If not improving may need to indiviualize medications and adjust tenofovir dose. (4) Acidosis, metabolic Current Visit: Yes Status: Acute Assessment and plan: AC 7 Hyperchloremia. Possibly from IV fluids. Also with Nausea and vomitting. Improving on bicarb gtt. we can likley Dc once bicarb is greater than 15. We will repeat a BMP this afternoon. (5) Anemia Current Visit: Yes Status: Acute Assessment and plan: macrocytic. Check hematinics. Likely has a dilutional component given the large amount of fluids he has recieved. Euvolemic on todays exam. No signs of bleeding at this time. asymtpomatic (6) Rash Current Visit: Yes Status: Chronic Assessment and plan: Patient has multiple erythematous papules on abdomen and chest. States he saw dermatology for this and was a rash secondary to HIV. He states it is unchanged. (7) Atrophy of left kidney Current Visit: Yes Status: Chronic Assessment and plan: etiology unclear. Patient dose not know the etiology (8) Ureterolithiasis Current Visit: Yes Status: Acute (9) DVT prophylaxis Current Visit: Yes Status: Acute Assessment and plan: EPCDs ordered. - Subjective Interval history: no major events overnight. Patient states that he is feeling better today. He denies any fever chills, maliase. HE dneis any sore throat. He denies any chest pain or dyspnea. He has no further complaints or concerns at this time. - Constitutional Vitals: Temp Pulse Resp BP Pulse Ox 98.0 F 78 15 97/64 97 03/09/17 04:21 03/09/17 04:21 03/09/17 04:21 03/09/17 04:21 03/09/17 04:21 General appearance: Present: A&O X 3, answers questions appropriately - Head Head exam: Present: atraumatic, normocephalic - Eye Eye exam: Present: PERRL, conjuntiva pink, sclera anicteric Pupils: Present: PERRL - Neck Neck exam general surgery: Present: supple, trachea midline. Absent: lymphadenopathy - Respiratory Respiratory exam: Present: CTAB. Absent: accessory muscle use, rales, rhonchi, wheezes - Cardiovascular Cardiovascular exam: Present: RRR, +S1, +S2. Absent: diastolic murmur, gallop, rubs, systolic murmur - GI/Abdominal GI/Abdominal exam: Present: normal bowel sounds, soft, no peritoneal signs. Absent: distended, tenderness Additional comments: nephrostomy tube in place on the right - Extremities Exam Extremities exam: Present: warm, radial pulses palpable and symetrical. Absent : calf tenderness, cyanotic, pedal edema - Neurological Exam Neurological exam: Present: CN II-XII intact, oriented X3, no focal deficits. Absent: pronater drift, facial droop, speech deficit - Skin Skin exam: Present: dry, intact, rash (small erythematous papules on the abdomen. PAtient states this is chronic from his HIV. ) Internal Medicine: Result - Labs CBC & Chem 7: 03/09/17 03:50 03/09/17 03:50 Labs: Short CBC 03/09/17 Range/Units 03:50 WBC 7.3 (4.3-11.1) K/mcL Hgb 9.8 L D (12.9-16.9) g/dL Hct 29.3 L (37.5-50.1) % Plt Count 269 (140-400) K/mcL Neutrophils # 3.8 (1.6-8.9) K/mcL [facility] 03/08/17 03/09/17 19:56 03:50 Sodium 143 142 Potassium 3.7 3.1 L Chloride 123 H 121 H Carbon Dioxide 10 L* 14 L BUN 34 H D 23 D Creatinine 4.28 H 2.37 H Glucose 101 H 104 H Calcium 8.0 L 8.0 L - ABG Interpretation ABG results: PT/INR, D-dimer PT 11.4 Seconds (9.4-12.1) 03/08/17 10:11 Consult Discharge Plan - Plan Referrals: Ozzie Fall MD [Primary Care Provider] - <Pau Dan E - Last Filed: 03/09/17 18:08> Date of Encounter: 03/09/17 - Constitutional Vitals: Temp Pulse Resp BP Pulse Ox 98.0 F 78 15 97/64 97 03/09/17 04:21 03/09/17 04:21 03/09/17 04:21 03/09/17 04:21 03/09/17 04:21 Internal Medicine: Result - Labs CBC & Chem 7: 03/09/17 03:50 03/09/17 03:50 Labs: Short CBC 03/09/17 Range/Units 03:50 WBC 7.3 (4.3-11.1) K/mcL Hgb 9.8 L D (12.9-16.9) g/dL Hct 29.3 L (37.5-50.1) % Plt Count 269 (140-400) K/mcL Neutrophils # 3.8 (1.6-8.9) K/mcL [facility] 03/08/17 03/09/17 19:56 03:50 Sodium 143 142 Potassium 3.7 3.1 L Chloride 123 H 121 H Carbon Dioxide 10 L* 14 L BUN 34 H D 23 D Creatinine 4.28 H 2.37 H Glucose 101 H 104 H Calcium 8.0 L 8.0 L - ABG Interpretation ABG results: PT/INR, D-dimer PT 11.4 Seconds (9.4-12.1) 03/08/17 10:11 - Attending Attestation I examined this patient and reviewed laboratory, imaging and all diagnostic data. My medical decision-making was reviewed with Dr Alvarez - Resident Physician. I agree with the documented findings, disposition and treatment plan as described above
--- NOTE | 2017-03-09 17:24 | Urology - Consult Note ---
Date of Encounter: 03/09/17 Time of Encounter: 17:18 - Assessment and Plan (1) TESSIE (acute kidney injury) Current Visit: Yes Status: Acute Assessment and plan: continue drainage. plan on removing so cath tomorrow. continue pcn tube (2) Nephrolithiasis Current Visit: Yes Status: Acute Assessment and plan: will need percutaneous nephrolithotomy in the future. will not be performed during this admission. Urology CN:HPI Consult date: 03/09/17 Reason for consult Urology: Other (stones and renal failure) Requesting physician: Heather Calvo History of present illness: Robert is a 31 y/o male with history admission to hospital who was found to have prox right ureteral stone, atrophic left kidney and renal failure. Patient was also having difficulty with voiding and had a catheter placed. The patients creatinine has improved dramatically improved since drainage. minimal pain. The patient has multiple other stones in his right kidney. Past Med Surg Social Fam HX - Past Medical History Medical history: HIV/AIDS - Social History Smoking Status: Current every day smoker Packs per day: 1 Smokeless Tobacco Status: No Alcohol use: none Drug use: none - Family History Mother Hx Family Cardiac Disorders: Yes Hx Family Cancer: Yes Medications and Allergies Cetirizine HCl [Zyrtec] 10 mg PO DAILY 03/08/17 [History] Citalopram Hydrobromide [Celexa] 40 mg PO DAILY 03/08/17 [History] Cyprohepatdine [Periactin] 4 mg PO BID 03/08/17 [History] Divalproex Sodium [Depakote] 250 mg PO HS 03/08/17 [History] Doxepin HCl 10 mg PO HS 03/08/17 [History] Doxycycline 100 mg PO BID 03/08/17 [History] Dronabinol [Marinol] 2.5 mg PO BID 03/08/17 [History] Efavirenz/Emtricitab/Tenofovir [Atripla Tablet] 1 tab PO DAILY 03/08/17 [History ] Gabapentin [Neurontin] 800 mg PO QID 03/08/17 [History] Glycopyrrolate [Robinul] 1 mg PO BID 03/08/17 [History] HydrOXYzine Pamoate [Vistaril] 50 mg PO BID 03/08/17 [History] L. Acidophilus/Pectin, [place] [Acidophilus Probiotic Capsule] 1 cap PO DAILY [History] Meloxicam [Mobic] 15 mg PO DAILY 03/08/17 [History] Mirtazapine [Remeron] 15 mg PO HS 03/08/17 [History] Pnv with Ca,No.72/Iron/FA [Pnv Plus Multivit Tab] 1 tab PO DAILY [History] Pregabalin [Lyrica] 150 mg PO BID 03/08/17 [History] Allergies Cefaclor [From [facility]] Allergy (Verified 03/08/17 11:47) Hives Review of Systems - Constitutional no chills - EENT Nose, mouth and throat: no dizziness - Cardiovascular no chest pain - Gastrointestinal abdominal pain - Musculoskeletal no back pain - Integumentary no erythema - Neurological no confusion - Psychiatric no anxiety Exam Initial Vital Signs Temp Pulse Resp BP Pulse Ox 97.5 F L 81 16 113/83 100 03/08/17 09:41 03/08/17 09:41 03/08/17 09:41 03/08/17 09:41 03/08/17 09:41 - General physical appearance Present: well developed - Eyes Present: PERRL - ENT Present: normal nares - Neck Present: no masses - Respiratory Present: normal respiratory effort - Abdomen Abdomen: Present: soft (right pcn tube draining well) - Genitourinary other (cath in place) Urology Results - Labs 03/09/17 03:50 03/09/17 03:50 Abnormal lab results RBC 2.81 M/mcL (4.19-5.50) L 03/09/17 03:50 Hgb 9.8 g/dL (12.9-16.9) L D 03/09/17 03:50 Hct 29.3 % (37.5-50.1) L 03/09/17 03:50 MCV 104.3 fL (83.0-100.0) H 03/09/17 03:50 MCH 34.9 pg (28.0-33.3) H 03/09/17 03:50 RDW 14.6 % (11.5-14.5) H 03/09/17 03:50 VBG pH 7.31 pH Units (7.32-7.42) L 03/09/17 07:43 VBG pCO2 37 mmHg (41-51) L 03/09/17 07:43 VBG pO2 209 mmHg (25-40) H 03/09/17 07:43 VBG HCO3 18.6 mEq/L (21-27) L 03/09/17 07:43 Potassium 3.1 mEq/L (3.5-4.5) L 03/09/17 03:50 Chloride 121 mEq/L (98-109) H 03/09/17 03:50 Carbon Dioxide 14 mEq/L (19-29) L 03/09/17 03:50 Creatinine 2.37 mg/dL (0.72-1.25) H 03/09/17 03:50 Est GFR ( Amer) 39 (> 60) L 03/09/17 03:50 Est GFR (Non-Af Amer) 32 (> 60) L 03/09/17 03:50 Glucose 104 mg/dL (70-99) H 03/09/17 03:50 Calcium 8.0 mg/dL (8.6-10.8) L 03/09/17 03:50 Albumin 2.8 g/dL (3.5-5.0) L 03/08/17 10:11 Globulin 4.3 g/dL (2.4-3.5) H 03/08/17 10:11 Albumin/Globulin Ratio 0.7 (1.1-2.2) L 03/08/17 10:11 Urine Protein 30 mg/dL (Neg-Trace) H 03/08/17 11:43 Urine Glucose (UA) 100 mg/dL (Normal) H 03/08/17 11:43 Urine Blood Moderate (Negative) H 03/08/17 11:43 Urine Microscopic RBC 30-50 per hpf (0-3) H 03/08/17 11:43 Ur Squamous Epith Cells Many per lpf (None-Few) H 03/08/17 11:43 Microalb/Creat Ratio 219 (0-30) H 03/09/17 02:42 Protein/Creatinin Ratio 1.20 mg/mg (0-0.20) H 03/09/17 02:42 Urine Total Protein 65 mg/dL (1-14) H 03/09/17 02:42 Diabetes panel 03/08/17 03/09/17 Range/Units 19:56 03:50 Sodium 143 142 (136-145) mEq/L Potassium 3.7 3.1 L (3.5-4.5) mEq/L Chloride 123 H 121 H (98-109) mEq/L Carbon Dioxide 10 L* 14 L (19-29) mEq/L BUN 34 H D 23 D (8-26) mg/dL Creatinine 4.28 H 2.37 H (0.72-1.25) mg/dL Glucose 101 H 104 H (70-99) mg/dL Calcium 8.0 L 8.0 L (8.6-10.8) mg/dL Calcium panel 03/08/17 03/09/17 Range/Units 19:56 03:50 Calcium 8.0 L 8.0 L (8.6-10.8) mg/dL Pituitary panel 03/08/17 03/09/17 Range/Units 19:56 03:50 Sodium 143 142 (136-145) mEq/L Potassium 3.7 3.1 L (3.5-4.5) mEq/L Chloride 123 H 121 H (98-109) mEq/L Carbon Dioxide 10 L* 14 L (19-29) mEq/L BUN 34 H D 23 D (8-26) mg/dL Creatinine 4.28 H 2.37 H (0.72-1.25) mg/dL Glucose 101 H 104 H (70-99) mg/dL Calcium 8.0 L 8.0 L (8.6-10.8) mg/dL Adrenal panel 03/08/17 03/09/17 Range/Units 19:56 03:50 Sodium 143 142 (136-145) mEq/L Potassium 3.7 3.1 L (3.5-4.5) mEq/L Chloride 123 H 121 H (98-109) mEq/L Carbon Dioxide 10 L* 14 L (19-29) mEq/L BUN 34 H D 23 D (8-26) mg/dL Creatinine 4.28 H 2.37 H (0.72-1.25) mg/dL Glucose 101 H 104 H (70-99) mg/dL Calcium 8.0 L 8.0 L (8.6-10.8) mg/dL All other labs normal. - Imaging CT scan - abdomen: image reviewed CT scan - pelvis: image reviewed Consult Discharge Plan - Plan Referrals: Fall,Horne, MD [Primary Care Provider] -
[2017-03-09 18:31] LABS: BUN/Creatinine Ratio 9 (6-26); Blood Urea Nitrogen 15 mg/dL (8-26); Calcium 8.4 mg/dL (8.6-10.8); Carbon Dioxide 23 mEq/L (19-29); Chloride 117 mEq/L (98-109); Glucose 103 mg/dL (70-99); Osmolality,Calculated 299 (280-300); Sodium 144 mEq/L (136-145); eGFR For African Americans > 60 (> 60); eGFR For Non-African Americans 50 (> 60)
[2017-03-09] MEDS: Divalproex (24 HR) 250 MG TABLET PO SCH (21:25)
[2017-03-09] MEDS: Mirtazapine 15 MG TABLET PO SCH (21:25)
[2017-03-10 03:30] LABS: Basophils % 0.5 %; Eosinophils # 0.2 K/mcL (0.0-0.6); Eosinophils % 2.9 %; Hematocrit 28.4 % (37.5-50.1); Hemoglobin 9.6 g/dL (12.9-16.9); Immature Granulocytes % 0.6 % (0-4); Lymphocytes # 3.7 K/mcL (0.6-4.6); Lymphocytes % 45.1 %; Mean Corpuscular HGB Conc 33.8 g/dL (31.6-35.5); Mean Corpuscular Hemoglobin 34.4 pg (28.0-33.3); Mean Corpuscular Volume 101.8 fL (83.0-100.0); Monocytes # 0.9 K/mcL (0.0-1.3); Monocytes % 10.9 %; Neutrophils # 3.3 K/mcL (1.6-8.9); Platelet Count 260 K/mcL (140-400); Red Blood Count 2.79 M/mcL (4.19-5.50); Red Cell Distribution Width 14.5 % (11.5-14.5)
[2017-03-10 03:38] LABS: % Iron Saturation 40 % (20-55); BUN/Creatinine Ratio 12 (6-26); Blood Urea Nitrogen 14 mg/dL (8-26); Calcium 7.9 mg/dL (8.6-10.8); Carbon Dioxide 24 mEq/L (19-29); Chloride 113 mEq/L (98-109); Glucose 92 mg/dL (70-99); Iron 62 mcg/dL (65-175); Magnesium 1.4 mg/dL (1.6-2.6); Osmolality,Calculated 298 (280-300); Phosphorous 1.8 mg/dL (2.3-4.7); Potassium 2.7 mEq/L (3.5-4.5); Sodium 144 mEq/L (136-145); Transferrin 112 mg/dL (174-364); eGFR For African Americans > 60 (> 60); eGFR For Non-African Americans > 60 (> 60)
[2017-03-10 03:59] LABS: Ferritin 124 ng/ml (22-275)
[2017-03-10 04:12] LABS: Folate 14.8 ng/mL (7.0-31.4)
[2017-03-10] MEDS: Sodium Bicarbonate 150 MEQ in D5% in Water 1,000 ML IVC SCH (04:32)
[2017-03-10] MEDS ORDERED: Potassium Chloride 40 MEQ, Lidocaine 1% 2 ML in D5% in Water 500 ML IVPB ONE (07:07)
[2017-03-10] MEDS ORDERED: Magnesium Sulfate 2 GM in D5% in Water 100 ML IVPB STA (07:07)
[2017-03-10] MEDS: Pregabalin 25 MG CAPSULE PO SCH (08:24)
[2017-03-10] MEDS: Nicotine 14 MG PATCH.TD24 TD SCH (08:24)
[2017-03-10] MEDS: *HR* HYDROcodone/Acet 5/325 mg TABLET PO PRN (08:43)
--- NOTE | 2017-03-10 08:43 | Nephrology Progress Note ---
Date of Encounter: 03/10/17 Time of Encounter: 11:27 - Assessment and Plan (1) TESSIE (acute kidney injury) Current Visit: Yes Status: Acute Rapidly improving s/p left Rt PCN, appreciate Urology. He has left renal atrophy , which should be presumed to be a nonfunctioning kidney. Postobstructive/autodiuresis with borderline hypernatremia and hypokalemia plus hypophosphatemia. He appears to be off IVF and yesterday the total UOP was only reported as near 2225, but he was nearly balanced on his I/O when reviewing in the 24hr view. Hx of metabolic acidosis: it appears that he was placed on a bicarb gtt. I recommend weaning off of IVF and encouraging him to consume fluids by mouth, ideally Gatorade or PowerAide with electrolytes to match input withou urine outpt. Hypokalemia: check mag and replete. Needs more than just 20mEq IV x1. I will add 40mg po daily for 1 week. Agree with Phos replacement. Recommend checking a BMP in about 1 week after discharge. PCN as per urology. HIV medications can induce a tendency for recurrent renal stones. Will sign off, but please feel free to contact [facility] with any questions. (2) Hydronephrosis Current Visit: Yes Status: Acute S/p PCN. Qualifiers: Hydronephrosis type: with ureteral calculous obstruction Qualified Code(s) : N13.2 - Hydronephrosis with renal and ureteral calculous obstruction (3) Ureterolithiasis Current Visit: Yes Status: Acute (4) Atrophy of left kidney Current Visit: Yes Status: Chronic He said this was incidentally discovered by MRI about 6-7 months ago when his low back pain was being worked up. (5) HIV (human immunodeficiency virus infection) Current Visit: Yes Status: Chronic As per primary Subjective Principal diagnosis: R ureteral obstruction Interval history: Pt was seen and examined. He did not affirm N/V/D or uremic complaints. He has not had to see any prior nephrologists until this hospitalization, when Dr. Lambert start his work up and renal care Objective - Vital Signs Vital signs: Vital Signs Temp Pulse Resp BP Pulse Ox 03/10/17 07:02 98.0 F 76 17 112/70 95 03/09/17 23:59 98.3 F 75 14 90/56 94 03/09/17 19:13 98.6 F 94 14 97/61 96 Intake and Output 03/09/17 03/10/17 03/10/17 23:59 07:59 15:59 Intake Total 0 / 0 1150 / 1150 Output Total 1025 / 1025 1100 / 1100 Balance -1025 / -1025 50 / 50 Intake: IV Fluids 1150 / 1150 Sodium Bicarbonate 150 1150 / 1150 MEQ In Dextrose 5% 1,000 ML @ 150 mls/hr IVC . Q7H40M [facility] Rx#:[id number] Oral 0 / 0 0 / 0 Output: Catheter 100 / 100 400 / 400 Wound Drainage 925 / 925 700 / 700 Right 925 / 925 700 / 700 Other: Weight 70.1 kg Patient Weight 03/10/17 23:59 Weight 70.1 kg - General Appearance General appearance: Present: well-developed, well-nourished, appears started age EENT: Present: ATNC, PERRL, mucous membranes moist Neck: Present: supple Respiratory: Present: clear Cardiology: Present: no edema, regular rate, normal S1, normal S2 Gastrointestinal: Present: normoactive bowel sounds, no tenderness, no guarding Integumentary: Present: no rash, warm and dry Neurologic: Present: no focal deficit, no asterixis, alert and oriented x3 Musculoskeletal: Present: no deformities, no erythema, no clubbing Psychiatric: Present: mood/affect appropriate, cooperative - Lab 03/10/17 02:55 03/10/17 02:55 Most recent lab results Calcium 7.9 mg/dL (8.6-10.8) L 03/10/17 02:55 Phosphorus 1.8 mg/dL (2.3-4.7) L 03/10/17 02:55 Magnesium 1.4 mg/dL (1.6-2.6) L 03/10/17 02:55 Urine Creatinine 54 mg/dL 03/09/17 02:42 Urine Sodium 93.0 mEq/L 03/09/17 02:42 Urine Total Protein 65 mg/dL (1-14) H 03/09/17 02:42 Consult Discharge Plan - Plan Referrals: Ozzie Fall MD [Primary Care Provider] -
[2017-03-10] MEDS ORDERED: EFAVIRENZ/EMTRICITAB/TENOFOVIR 1 EACH TABLET PO SCH (11:56)
[2017-03-10] MEDS: *HR* Morphine 2 MG/ML SYRINGE IVP PRN (13:23)
[2017-03-10 13:55] LABS: Blood Urea Nitrogen 11 mg/dL (8-26); Carbon Dioxide 27 mEq/L (19-29); Chloride 109 mEq/L (98-109); Potassium 3.4 mEq/L (3.5-4.5); Sodium 143 mEq/L (136-145)
[2017-03-10 13:56] LABS: BUN/Creatinine Ratio 9 (6-26); Calcium 8.1 mg/dL (8.6-10.8); Glucose 97 mg/dL (70-99); Osmolality,Calculated 295 (280-300); eGFR For African Americans > 60 (> 60); eGFR For Non-African Americans > 60 (> 60)
--- NOTE | 2017-03-10 15:16 | Internal Med Progress Note ---
Date of Encounter: 03/10/17 Time of Encounter: 11:00 - Subjective Interval history: Patient has no complaints. he is eating well. - Constitutional Vitals: Temp Pulse Resp BP Pulse Ox 98.1 F 76 18 101/62 96 03/10/17 11:25 03/10/17 11:25 03/10/17 11:25 03/10/17 11:25 03/10/17 11:25 General appearance: Present: A&O X 3, answers questions appropriately Internal Medicine: Result - Labs CBC & Chem 7: 03/10/17 02:55 03/10/17 12:52 Labs: Short CBC 03/10/17 Range/Units 02:55 WBC 8.2 (4.3-11.1) K/mcL Hgb 9.6 L (12.9-16.9) g/dL Hct 28.4 L (37.5-50.1) % Plt Count 260 (140-400) K/mcL Neutrophils # 3.3 (1.6-8.9) K/mcL BMP 03/09/17 03/10/17 03/10/17 17:27 02:55 12:52 Sodium 144 144 143 Potassium 3.0 L 2.7 L 3.4 L Chloride 117 H 113 H 109 Carbon Dioxide 23 24 27 BUN 15 14 11 Creatinine 1.61 H 1.20 1.21 Glucose 103 H 92 97 Calcium 8.4 L 7.9 L 8.1 L - ABG Interpretation ABG results: PT/INR, D-dimer PT 11.4 Seconds (9.4-12.1) 03/08/17 10:11 Consult Discharge Plan - Plan Referrals: Ozzie Fall MD [Primary Care Provider] -
[2017-03-10 15:18] VITALS: BP 109/69
--- NOTE | 2017-03-10 15:24 | Discharge Summary ---
Date of Encounter: 03/10/17 Time of Encounter: 11:00 - Discharge Diagnosis (1) TESSIE (acute kidney injury) Priority: Primary Status: Resolved Comments: Resolved. secondary to right ureterolithiasis in the setting of left kidney atrophy. Had placement of right nephrostomy tube. (2) Ureterolithiasis Priority: Primary Status: Acute (3) Hydronephrosis Priority: Primary Status: Acute Qualifiers: Hydronephrosis type: with ureteral calculous obstruction Qualified Code(s) : N13.2 - Hydronephrosis with renal and ureteral calculous obstruction (4) Acidosis, metabolic Priority: Primary Status: Resolved (5) Anemia Priority: Secondary Status: Chronic Qualifiers: Anemia type: unspecified type Qualified Code(s): D64.9 - Anemia, unspecified (6) Atrophy of left kidney Priority: Secondary Status: Chronic (7) HIV (human immunodeficiency virus infection) Priority: Secondary Status: Chronic - Discharge Medications Prescriptions: HYDROcodone/Acet 5/325 mg [[place] 5-325 mg] 1 tab PO Q8HR PRN #10 tablet PRN Reason: Moderate Pain (4-6) Nicotine Patch [Nicoderm] 14 mg TD DAILY #30 patch.td24 Potassium Chloride 40 meq PO DAILY #12 tab.er.prt Home Medications: Cetirizine HCl [Zyrtec] 10 mg PO DAILY 03/08/17 [History] Citalopram Hydrobromide [Celexa] 40 mg PO DAILY 03/08/17 [History] Cyprohepatdine [Periactin] 4 mg PO BID 03/08/17 [History] Divalproex Sodium [Depakote] 250 mg PO HS 03/08/17 [History] Doxepin HCl 10 mg PO HS 03/08/17 [History] Doxycycline 100 mg PO BID 03/08/17 [History] Dronabinol [Marinol] 2.5 mg PO BID 03/08/17 [History] Efavirenz/Emtricitab/Tenofovir [Atripla Tablet] 1 tab PO DAILY 03/08/17 [History ] Gabapentin [Neurontin] 800 mg PO QID 03/08/17 [History] Glycopyrrolate [Robinul] 1 mg PO BID 03/08/17 [History] HydrOXYzine Pamoate [Vistaril] 50 mg PO BID 03/08/17 [History] L. Acidophilus/Pectin, [place] [Acidophilus Probiotic Capsule] 1 cap PO DAILY [History] Meloxicam [Mobic] 15 mg PO DAILY 03/08/17 [History] Mirtazapine [Remeron] 15 mg PO HS 03/08/17 [History] Pnv with Ca,No.72/Iron/FA [Pnv Plus Multivit Tab] 1 tab PO DAILY [History] Pregabalin [Lyrica] 150 mg PO BID 03/08/17 [History] HYDROcodone/Acet 5/325 mg [[place] 5-325 mg] 1 tab PO Q8HR PRN #10 tablet [Rx] Nicotine Patch [Nicoderm] 14 mg TD DAILY #30 patch.td24 03/10/17 [Rx] Potassium Chloride 40 meq PO DAILY #12 tab.er.prt 03/10/17 [Rx] Allergies/Adverse Reactions: Allergies Cefaclor [From Ceclor] Allergy (Verified 03/08/17 11:47) Hives Date of admission: 03/08/17 13:45 Primary care physician: Ozzie Fall MD Consults: 03/08/17 14:33 Consult to Urology [CONS] Routine Consulting Provider: [facility] [place] Reason for Consult: hydronephrosis - notified per ED physician Time Notified: 14:34 Call Completed: Yes 03/08/17 15:54 Consult to Nephrology [CONS] Routine Consulting Provider: [facility] [place]/COURTNEY/THAD/RITESH Reason for Consult: TESSIE Time Notified: 15:54 Call Completed: Yes 03/08/17 16:03 Consult to Transfer Professor [CONS] Routine Reason for SW Consult: needs transportation assistance/resources - Patient Status Disposition: Home, Self-Care Condition: Good Functional capacity at discharge: independent ambulation Overall status at discharge: patient is progressing back to baseline - Discharge Instructions Instructions: Potassium Chloride (By mouth), Acute Kidney Injury (GEN), Hydronephrosis (GEN), Nephrostomy Tube Care (DC), Metabolic Acidosis ( GEN) Follow Up With: Ozzie Fall MD [Primary Care Provider] - (CALL OFFICE TUESDAY, MARCH 13 - RE: APPOINTMENT FOR WEDNESDAY, MARCH 14.) Robert Meier MD [Partnered Physician] - 04/03/17 9:30 am Additional Instructions: PLEASE KEEP DRINKING PLENTY OF FLUIDS, IDEALLY GATORADE OR POWERAIDE WITH ELECTROLYTES. UNFORTUNATELY, SOME OF YOUR MEDICATIONS CAN INDUCE RECURRENT RENAL STONES FOLLOW UP IN THE UROLOGY CLINIC. FOLLOW UP WITH YOUR PRIMARY CARE DOCTOR NEXT February. PLEASE MAKE SURE TO TAKE A BLOOD TEST TO CHECK YOUR KIDNEY FUNCTION NEXT WEEK. - Diet and Activity Activity: resume usual activities as tolerated Diet: regular diet (DRINK PLENTY OF FLUIDS) Interval History: patient has no complaints. he is eating well. Hospital course: Mr. Muñoz is a 31 year old male with past medical history of HIV on HAART, left kidney atrophy and bipolar disorder. Patient presents with right flank / abdominal pain with associated dysuria and urinary retention. Cr was 7. CTAP showed 4 mm procial right ureteral stone causing moderate hydronephrosis. He was admitted with diagnosis of TESSIE due to right ureterolithiasis with associated hydronephrosis. Patient underwent percutaneous placement of nephrostomy tube without complications. He received aggressive fluid resuscitation with resolution of his kidney injury. Simon catheter removed and patient had some urine output. PLAN: Nephrostomy care at home until follow up appt in Urology clinc . Patient was explained that his HIV medications predispose him to kidney stones. patient instructed to drink plenty of fluids. Potassium supplementation for one week. bmp in one week. - Time Spent with Patient Total time spent providing and/or coordinating discharge services: - Constitutional Vitals: Temp Pulse Resp BP Pulse Ox 98.1 F 76 18 101/62 96 03/10/17 11:25 03/10/17 11:25 03/10/17 11:25 03/10/17 11:25 03/10/17 11:25 General appearance: Present: cooperative, A&O X 3, pleasant, no acute distress, answers questions appropriately - Respiratory Respiratory exam: Present: CTAB - Cardiovascular Cardiovascular exam: Present: RRR - GI/Abdominal GI/Abdominal exam: Present: normal bowel sounds, soft. Absent: distended, tenderness - Additional comments: right nephrostomy tube in site. hematuria in bag. - Extremities Exam Extremities exam: Absent: pedal edema - Neurological Exam Neurological exam: Present: alert, oriented X3, no focal deficits, strengths equal and symetr throughout. Absent: facial droop, speech deficit
--- NOTE | 2017-03-10 18:19 | Urology Progress Note ---
Date of Encounter: 03/10/17 Time of Encounter: 18:18 - Assessment and Plan (1) Nephrolithiasis Status: Acute Assessment and plan: keep pcn tube. f/u in 2 weeks for planning of right pcnl.. Progress Note Narrative: Patient seen this am. doing much better. Objective Initial Vital Signs Temp Pulse Resp BP Pulse Ox 97.5 F L 81 16 113/83 100 03/08/17 09:41 03/08/17 09:41 03/08/17 09:41 03/08/17 09:41 03/08/17 09:41 - General physical appearance Present: well developed - Abdomen Present: soft - Genitourinary Present: other (urine clear in pcn and so ) - Labs 03/10/17 02:55 03/10/17 12:52 Diabetes panel 03/09/17 03/10/17 03/10/17 Range/Units 17:27 02:55 12:52 Sodium 144 144 143 (136-145) mEq/L Potassium 3.0 L 2.7 L 3.4 L (3.5-4.5) mEq/L Chloride 117 H 113 H 109 (98-109) mEq/L Carbon Dioxide 23 24 27 (19-29) mEq/L BUN 15 14 11 (8-26) mg/dL Creatinine 1.61 H 1.20 1.21 (0.72-1.25) mg/dL Glucose 103 H 92 97 (70-99) mg/dL Calcium 8.4 L 7.9 L 8.1 L (8.6-10.8) mg/dL Calcium panel 03/09/17 03/10/17 03/10/17 Range/Units 17:27 02:55 12:52 Calcium 8.4 L 7.9 L 8.1 L (8.6-10.8) mg/dL Phosphorus 1.8 L (2.3-4.7) mg/dL Pituitary panel 03/09/17 03/10/17 03/10/17 Range/Units 17:27 02:55 12:52 Sodium 144 144 143 (136-145) mEq/L Potassium 3.0 L 2.7 L 3.4 L (3.5-4.5) mEq/L Chloride 117 H 113 H 109 (98-109) mEq/L Carbon Dioxide 23 24 27 (19-29) mEq/L BUN 15 14 11 (8-26) mg/dL Creatinine 1.61 H 1.20 1.21 (0.72-1.25) mg/dL Glucose 103 H 92 97 (70-99) mg/dL Calcium 8.4 L 7.9 L 8.1 L (8.6-10.8) mg/dL Adrenal panel 03/09/17 03/10/17 03/10/17 Range/Units 17:27 02:55 12:52 Sodium 144 144 143 (136-145) mEq/L Potassium 3.0 L 2.7 L 3.4 L (3.5-4.5) mEq/L Chloride 117 H 113 H 109 (98-109) mEq/L Carbon Dioxide 23 24 27 (19-29) mEq/L BUN 15 14 11 (8-26) mg/dL Creatinine 1.61 H 1.20 1.21 (0.72-1.25) mg/dL Glucose 103 H 92 97 (70-99) mg/dL Calcium 8.4 L 7.9 L 8.1 L (8.6-10.8) mg/dL Consult Discharge Plan - Plan Instructions: Potassium Chloride (By mouth), Acute Kidney Injury (GEN), Hydronephrosis (GEN), Nephrostomy Tube Care (DC), Metabolic Acidosis ( GEN) Additional Instructions: PLEASE KEEP DRINKING PLENTY OF FLUIDS, IDEALLY GATORADE OR POWERAIDE WITH ELECTROLYTES. UNFORTUNATELY, SOME OF YOUR MEDICATIONS CAN INDUCE RECURRENT RENAL STONES FOLLOW UP IN THE UROLOGY CLINIC IN 2-3 WEEKS. FOLLOW UP WITH YOUR PRIMARY CARE DOCTOR NEXT February. PLEASE MAKE SURE TO TAKE A BLOOD TEST TO CHECK YOUR KIDNEY FUNCTION NEXT WEEK. Referrals: Robert Meier MD [Partnered Physician] - 04/03/17 9:30 am Ozzie Fall MD [Primary Care Provider] - (CALL OFFICE TUESDAY, MARCH 13 - RE: APPOINTMENT FOR WEDNESDAY, MARCH 14.) Prescriptions: HYDROcodone/Acet 5/325 mg [[place] 5-325 mg] 1 tab PO Q8HR PRN #10 tablet PRN Reason: Moderate Pain (4-6) Nicotine Patch [Nicoderm] 14 mg TD DAILY #30 patch.td24 Potassium Chloride 40 meq PO DAILY #12 tab.er.prt
== END 2017-03-10 17:25 | disposition home or self-care (01) | DRG 443 ==
LOC: 3ANU 09:40 → EMEROO 09:40 → 3ANU 13:01
PROVIDERS: ADMIT Hospitalist; ATTEND Internal Medicine

== ENCOUNTER 2017-07-19 20:39 | Observation (INO) ==
--- NOTE | 2017-07-19 21:13 | Emergency Department Note ---
Disposition Clinical Impression: Urinary tract obstruction by kidney stone, Hydronephrosis due to obstruction of ureter, TESSIE (acute kidney injury) Disposition: Admitted As Inpatient Condition: Good General Adult HPI - General Chief complaint: ED Recheck/Abnormal Lab/Rx Stated complaint: critical blood work dr. carter sent him here Time Seen by Provider: 07/19/17 21:02 Source: patient Limitations: no limitations - History of Present Illness Pain Scale: 1 - Related Data Home Medications Medication Instructions Recorded Confirmed Cetirizine HCl [Zyrtec] 10 mg PO AD 03/08/17 07/19/17 Citalopram Hydrobromide [Celexa] 40 mg PO DAILY 03/08/17 07/19/17 Doxycycline 100 mg PO BID 03/08/17 07/19/17 Dronabinol [Marinol] 2.5 mg PO BID 03/08/17 07/19/17 Efavirenz/Emtricitab/Tenofovir 1 tab PO DAILY 03/08/17 07/19/17 [Atripla Tablet] Gabapentin [Neurontin] 800 mg PO QID 03/08/17 07/19/17 Glycopyrrolate [Robinul] 1 mg PO BID 03/08/17 07/19/17 HydrOXYzine Pamoate [Vistaril] 50 mg PO BID 03/08/17 07/19/17 Pnv with Ca,No.72/Iron/FA [Pnv 1 tab PO DAILY 03/08/17 07/19/17 Plus Multivit Tab] Pregabalin [Lyrica] 150 mg PO BID 03/08/17 07/19/17 Benzoyl Peroxide 1 appl TP DAILY 03/27/17 07/19/17 Ciclopirox 1 appl TP DAILY 03/27/17 07/19/17 Divalproex (12 HR) [Depakote (12 500 mg PO HS 03/27/17 07/19/17 HR)] Meloxicam 15 mg PO DAILY 04/10/17 07/19/17 Cetirizine HCl/Pseudoephedrine 1 each PO DAILY 07/19/17 07/19/17 [Cetirizine-Pse ER 5-120 mg Tab] EPINEPHrine [Epipen] 0.3 mg IM ONCE PRN 07/19/17 07/19/17 Fexofenadine HCl 180 mg PO AD 07/19/17 07/19/17 Ranitidine HCl [Zantac] 300 mg PO DAILY 07/19/17 07/19/17 Allergies Allergy/AdvReac Type Severity Reaction Status Date / Time Cefaclor [From [facility]] Allergy Hives Verified 04/10/17 08:31 Past Medical History - Past Medical History Medical history: Reports: HIV/AIDS, kidney stones, renal disease Surgical history: Reports: other Psychiatric history: Reports: anxiety, depression - Social History Smoking Status: Current every day smoker Smokeless Tobacco Status: No Alcohol use: Reports: occasionally Drug use: Reports: none Physical Exam - General Limitations: no limitations General appearance: alert Course Vital Signs Temperature 98.8 F 07/19/17 20:45 Pulse Rate 106 07/19/17 20:45 Respiratory Rate 18 07/19/17 20:45 Blood Pressure 134/87 07/19/17 20:45 O2 Sat by Pulse Oximetry 99 07/19/17 20:45 Temperature 98.3 F 07/22/17 03:23 Pulse Rate 74 07/22/17 03:23 Respiratory Rate 14 07/22/17 03:23 Blood Pressure 97/60 07/22/17 03:23 O2 Sat by Pulse Oximetry 95 07/22/17 03:23 Oxygen Delivery Oxygen Delivery Room Air Medical Decision Making - Lab Data Result diagrams: 07/21/17 05:13 07/22/17 03:56 Lab Results 07/19/17 07/19/17 07/19/17 Range/Units 21:48 21:48 22:13 WBC 12.2 H (4.3-11.1) K/mcL RBC 3.23 L (4.19-5.50) M/mcL Hgb 11.1 L (12.9-16.9) g/dL Hct 33.8 L (37.5-50.1) % MCV 104.6 H (83.0-100.0) fL MCH 34.4 H (28.0-33.3) pg MCHC 32.8 (31.6-35.5) g/dL RDW 15.7 H (11.5-14.5) % Plt Count 252 (140-400) K/mcL MPV 10.3 (9.4-12.4) fL Immature Gran % 1.1 (0-4) % Seg Neutrophils % 63.0 % Lymphocytes % 25.5 % Monocytes % 8.1 % Eosinophils % 1.7 % Basophils % 0.6 % Neutrophils # 7.7 (1.6-8.9) K/mcL Lymphocytes # 3.1 (0.6-4.6) K/mcL Monocytes # 1.0 (0.0-1.3) K/mcL Eosinophils # 0.2 (0.0-0.6) K/mcL Basophils # 0.1 (0.0-0.2) K/mcL Sodium 143 (136-145) mEq/L Potassium 4.3 (3.5-4.5) mEq/L Chloride 118 H (98-109) mEq/L Carbon Dioxide 13 L (19-29) mEq/L BUN 45 H (8-26) mg/dL Creatinine 4.95 H (0.72-1.25) mg/dL Est GFR ( Amer) 16 L (> 60) Est GFR (Non-Af Amer) 14 L (> 60) BUN/Creatinine Ratio 9 (6-26) Glucose 77 (70-99) mg/dL Calculated Osmolality 306 H (280-300) Calcium 8.8 (8.6-10.8) mg/dL Total Bilirubin < 0.3 (0.2-1.2) mg/dL AST 19 (5-34) Units/L ALT 34 (0-55) Units/L Alkaline Phosphatase 187 H (38-126) Units/L Serum Total Protein 6.7 (6.0-8.3) g/dL Albumin 2.3 L (3.5-5.0) g/dL Globulin 4.4 H (2.4-3.5) g/dL Albumin/Globulin Ratio 0.5 L (1.1-2.2) Urine Color Yellow (Yellow) Urine Clarity Clear (Clear) Urine pH 6.5 (5.0-8.0) pH Units Ur Specific [place] 1.020 (1.010-1.025) Urine Protein 100 H (Neg-Trace) mg/dL Urine Glucose (UA) 100 H (Normal) mg/dL Urine Ketones Negative (Negative) mg/dL Urine Blood Moderate H (Negative) Urine Nitrite Negative (Negative) Urine Bilirubin Negative (Negative) Urine Urobilinogen Normal (Normal) mg/dL Ur Leukocyte Esterase Small H (Negative) Urine Microscopic RBC 5-15 H (0-3) per hpf Urine Microscopic WBC 15-30 H (0-3) per hpf Ur Squamous Epith Cells Many H (None-Few) per lpf Urine Bacteria None Seen (None-Few) per hpf Hyaline Casts None Seen (None-Few) per lpf Attestation Statement - Attestation Attestation: I examined this patient and my medical decision-making was reviewed with the Resident Physician. I agree with the documented findings, disposition and treatment plan as described except to the extent set forth below. [id number] time providing Patient with known history of HIV presents at the recommendation of another provider due to elevated creatinine. Patient has a history of similar episodes in the past due to obstructive uropathy. He appears thin and frail on exam. Plan of care and management discussed findings with the resident physician Dr. Cuevas 21:30: Case d/w Dr. Meier, urology, to cleanse the patient to be nothing by mouth after midnight with his consultation to follow tomorrow. He does not think nephrology consultation is indicated at this time unless the patient is hyperkalemic
[2017-07-19 21:55] LABS: Basophils # 0.1 K/mcL (0.0-0.2); Basophils % 0.6 %; Eosinophils # 0.2 K/mcL (0.0-0.6); Eosinophils % 1.7 %; Hematocrit 33.8 % (37.5-50.1); Hemoglobin 11.1 g/dL (12.9-16.9); Immature Granulocytes % 1.1 % (0-4); Lymphocytes # 3.1 K/mcL (0.6-4.6); Lymphocytes % 25.5 %; Mean Corpuscular HGB Conc 32.8 g/dL (31.6-35.5); Mean Corpuscular Hemoglobin 34.4 pg (28.0-33.3); Mean Corpuscular Volume 104.6 fL (83.0-100.0); Mean Platelet Volume 10.3 fL (9.4-12.4); Monocytes % 8.1 %; Neutrophils # 7.7 K/mcL (1.6-8.9); Platelet Count 252 K/mcL (140-400); Red Blood Count 3.23 M/mcL (4.19-5.50); Red Cell Distribution Width 15.7 % (11.5-14.5)
[2017-07-19 22:09] LABS: Alanine Aminotransferase 34 Units/L (0-55); Albumin 2.3 g/dL (3.5-5.0); Albumin/Globulin Ratio 0.5 (1.1-2.2); Alkaline Phosphatase 187 Units/L (38-126); Aspartate Amino Transferase 19 Units/L (5-34); BUN/Creatinine Ratio 9 (6-26); Blood Urea Nitrogen 45 mg/dL (8-26); Calcium 8.8 mg/dL (8.6-10.8); Carbon Dioxide 13 mEq/L (19-29); Chloride 118 mEq/L (98-109); Globulin 4.4 g/dL (2.4-3.5); Glucose 77 mg/dL (70-99); Osmolality,Calculated 306 (280-300); Potassium 4.3 mEq/L (3.5-4.5); Sodium 143 mEq/L (136-145); Total Protein 6.7 g/dL (6.0-8.3); eGFR For African Americans 16 (> 60); eGFR For Non-African Americans 14 (> 60)
[2017-07-19 22:12] LABS: Bilirubin,Total < 0.3 mg/dL (0.2-1.2)
--- NOTE | 2017-07-19 22:13 | Emergency Department Note ---
Disposition Clinical Impression: Urinary tract obstruction by kidney stone, Hydronephrosis due to obstruction of ureter, TESSIE (acute kidney injury) Disposition: Admitted As Inpatient Condition: Good Referrals: Unassigned,Provider [Non-Partnered Physician] - Forms: ED Satisfaction Letter General Adult HPI - General Chief complaint: ED Recheck/Abnormal Lab/Rx Stated complaint: critical blood work dr. carter sent him here Time Seen by Provider: 07/19/17 21:02 Source: patient Limitations: no limitations Nursing Notes Reviewed: Yes Vital Signs Reviewed: Yes - History of Present Illness HPI Narrative: This is a 31-year-old male with a past medical history of HIV, Pain Scale: 1 - Related Data Home Medications Medication Instructions Recorded Confirmed Cetirizine HCl [Zyrtec] 10 mg PO DAILY 03/08/17 04/10/17 Citalopram Hydrobromide [Celexa] 40 mg PO DAILY 03/08/17 04/10/17 Doxycycline 100 mg PO BID 03/08/17 04/10/17 Dronabinol [Marinol] 2.5 mg PO BID 03/08/17 04/10/17 Efavirenz/Emtricitab/Tenofovir 1 tab PO DAILY 03/08/17 04/10/17 [Atripla Tablet] Gabapentin [Neurontin] 800 mg PO QID 03/08/17 04/10/17 Glycopyrrolate [Robinul] 1 mg PO BID 03/08/17 04/10/17 HydrOXYzine Pamoate [Vistaril] 50 mg PO BID 03/08/17 04/10/17 Pnv with Ca,No.72/Iron/FA [Pnv 1 tab PO DAILY 03/08/17 04/10/17 Plus Multivit Tab] Pregabalin [Lyrica] 150 mg PO BID 03/08/17 04/10/17 Benzoyl Peroxide 1 appl TP DAILY 03/27/17 04/10/17 Ciclopirox 1 appl TP DAILY 03/27/17 04/10/17 Divalproex (12 HR) [Depakote (12 500 mg PO HS 03/27/17 04/10/17 HR)] Meloxicam 15 mg PO DAILY 04/10/17 04/10/17 Cetirizine HCl/Pseudoephedrine 1 each PO DAILY 07/19/17 07/19/17 [Cetirizine-Pse ER 5-120 mg Tab] EPINEPHrine [Epipen] 0.3 mg IM ONCE PRN 07/19/17 07/19/17 Fexofenadine HCl 180 mg PO AD 07/19/17 07/19/17 Ranitidine HCl [Zantac] 300 mg PO DAILY 07/19/17 07/19/17 Allergies Allergy/AdvReac Type Severity Reaction Status Date / Time Cefaclor [From [facility]] Allergy Hives Verified 04/10/17 08:31 Respiratory: Denies: cough, dyspnea, wheezes, hemoptysis Gastrointestinal: Reports: abdominal pain (Left lower quadrant) Genitourinary: Reports: frequency (Decreased). Denies: urgency, dysuria Musculoskeletal: Denies: back pain Integumentary: Reports: rash, lesions Past Medical History - Past Medical History Medical history: Reports: HIV/AIDS, kidney stones, renal disease Surgical history: Reports: other Psychiatric history: Reports: anxiety, depression - Social History Smoking Status: Current every day smoker Smokeless Tobacco Status: No Alcohol use: Reports: occasionally Drug use: Reports: none Physical Exam - General Limitations: no limitations General appearance: alert - Head Head exam: atraumatic, normocephalic - ENT ENT exam: normal oropharynx, mucous membranes moist - Neck Neck exam: Present: trachea midline. Absent: tenderness, meningismus, lymphadenopathy - Chest Chest inspection: Present: normal inspection, symmetric chest wall rise - Respiratory Respiratory exam: Present: normal lung sounds bilaterally. Absent: respiratory distress, wheezes, stridor - Cardiovascular Cardiovascular exam: Present: tachycardia, normal heart sounds - Abdominal Exam Abdominal exam: Present: soft, tenderness, other (A patch of umbilicated lesions in the left lower quadrant) Abdominal tenderness: Present: LLQ - Extremities Exam Extremities exam: Present: other (Has patches of an umbilicated rash on the lower 70s bilaterally) - Expanded Lower Extremity Exam Neurovascular/Tendon exam: Present: normal capillary refill - Back Exam Back exam: Absent: CVA tenderness (R), CVA tenderness (L) - Neurological Exam Neurological exam: Present: alert, oriented X3 - Psychiatric Psychiatric exam: Present: normal affect, normal mood - Skin Skin exam: Present: warm, dry, intact, rash (Umbilicated) Course Course Narrative: This is a 31-year-old male with a past medical history of HIV. He reports to the emergency department after being called by his occupational therapist rehab manager after having a creatinine level of 7. He also states that he is not been urinating as much lately. He denies any flank pain. At this time, my largest concern for this patient who is young with a new creatinine of 7 days for an obstructive uropathy. We will obtain a CT scan of his abdomen and pelvis, a CBC, urinalysis, CMP. - Reevaluation(s) Reevaluation #1: This patient has obstructive stones of the right ureter that are causing mild hydronephrosis. His CBC reveals a leukocytosis of 12.3. He also has a creatinine of 4.95. His urologist was consulted and recommended that we admit him to the hospital as he will see him in the morning. The hospitalist was consulted and Dr. Braga accepted the admission. The patient is currently not in any acute distress at this time. He is currently hemodynamically stable. Abdomen/Pelvis CT 07/19/17 21:14 IMPRESSION: 1. Multiple calculi in the distal 1/3 of the right ureter causing hydroureter and mild hydronephrosis. 2. Multiple bilateral renal calculi. 3. Severe atrophy of the left kidney. D/ / Kiet Burton MD / Kiet Burton MD Interpreting Provider: Kiet Burton MD Time: 22:21 Vital Signs Temperature 98.8 F 07/19/17 20:45 Pulse Rate 106 07/19/17 20:45 Respiratory Rate 18 07/19/17 20:45 Blood Pressure 134/87 07/19/17 20:45 O2 Sat by Pulse Oximetry 99 07/19/17 20:45 Temperature 98.8 F 07/19/17 20:45 Pulse Rate 106 07/19/17 20:45 Respiratory Rate 18 07/19/17 20:45 Blood Pressure 134/87 07/19/17 20:45 O2 Sat by Pulse Oximetry 99 07/19/17 20:45 Oxygen Delivery Oxygen Delivery Room Air Medical Decision Making - Medical Records Medical records reviewed: Yes I reviewed the patient's medical records. - Lab Data Lab results reviewed: Yes I reviewed the patient's lab results. Result diagrams: 07/19/17 21:48 Lab Results 07/19/17 Range/Units 21:48 WBC 12.2 H (4.3-11.1) K/mcL RBC 3.23 L (4.19-5.50) M/mcL Hgb 11.1 L (12.9-16.9) g/dL Hct 33.8 L (37.5-50.1) % MCV 104.6 H (83.0-100.0) fL MCH 34.4 H (28.0-33.3) pg MCHC 32.8 (31.6-35.5) g/dL RDW 15.7 H (11.5-14.5) % Plt Count 252 (140-400) K/mcL MPV 10.3 (9.4-12.4) fL Immature Gran % 1.1 (0-4) % Seg Neutrophils % 63.0 % Lymphocytes % 25.5 % Monocytes % 8.1 % Eosinophils % 1.7 % Basophils % 0.6 % Neutrophils # 7.7 (1.6-8.9) K/mcL Lymphocytes # 3.1 (0.6-4.6) K/mcL Monocytes # 1.0 (0.0-1.3) K/mcL Eosinophils # 0.2 (0.0-0.6) K/mcL Basophils # 0.1 (0.0-0.2) K/mcL - Radiology Data Radiology results reviewed: Yes I reviewed the patient's radiology results. - EKG Data EKG #1 EKG attestation: Yes I reviewed and interpreted this EKG. EKG results narrative: 07/19/2017 21:22 Ventricular rate 91 bpm, NE interval 139 ms, QRS duration 88 ms, QT 342 ms, QTC 391 ms, normal axis Normal sinus rhythm with a ventricular rate of 91 bpm. There are no ST segment elevations or depressions noted. There is no EKG to compare this report too. There are no peaked T waves to suggest hyperkalemia.
[2017-07-19 22:23] LABS: Bilirubin,Urine Negative (Negative); Blood,Urine Moderate (Negative); Clarity,Urine Clear (Clear); Color,Urine Yellow (Yellow); Glucose,Urine (UA) 100 mg/dL (Normal); Ketones,Urine Negative (Negative); Leukocyte Esterase,Urine Small (Negative); Nitrite,Urine Negative (Negative); PH,Urine 6.5 pH Units (5.0-8.0); Protein,Urine 100 mg/dL (Neg-Trace); Urobilinogen,Urine Normal (Normal)
[2017-07-19 22:26] LABS: Bacteria,Urine None Seen per hpf (None-Few); Hyaline Casts,Urine None Seen per lpf (None-Few); Squamous Epithelial Cell,Urine Many per lpf (None-Few); WBC,Urine 15-30 per hpf (0-3)
[2017-07-19] MEDS ORDERED: Naloxone 0.4 MG/ML INJ IVP PRN (22:46)
--- NOTE | 2017-07-19 22:56 | Internal Med History&Physical ---
Date of Encounter: 07/19/17 Time of Encounter: 22:00 Assessment and Plan (1) Hydronephrosis Current visit: No Status: Acute Due to ureter stone. Urology consult for further management. Keep nothing by mouth. Patient denies pain now. Qualifiers: Hydronephrosis type: with ureteral calculous obstruction Qualified Code(s) : N13.2 - Hydronephrosis with renal and ureteral calculous obstruction (2) TESSIE (acute kidney injury) Current visit: No Status: Resolved Most likely due to right-sided obstructive hydronephrosis and left kidney atrophy. Patient had similar problem 4 months ago. - Urology was counsulted. - Place patient on low rate IV fluid because nothing by mouth and nausea vomiting caused poor intake. - Closely monitor patient. (3) HIV (human immunodeficiency virus infection) Current visit: No Status: Chronic Patient is on Atripla. He said several months ago he was checked the CD4 and viral load, viral load is undetectable and CD4 level is okay (patient cannot provide exact number). Will hold Atripla right now because of nothing by mouth and TESSIE (4) DVT prophylaxis Current visit: No Status: Acute Patient is young and ambulating well. Low risk for DVT. No anticoagulation at this point. (5) Acidosis, metabolic Current visit: No Status: Resolved Probably uremic. AG 12. We will continue low rate IV fluid. Hopefully renal function improved after obstruction is resolved. Continue closely follow-up BMP (6) Urinary tract obstruction by kidney stone Current visit: Yes Status: Acute Management as above Internal Medicine - H&P: HPI Chief complaint: Abnormal lab result Admitted From: Home Plans for Post Hospital Care: Home History of present illness: Mr. Muñoz is a 31 year old male with history of HIV, history of TESSIE caused by kidney stone and obstruction present to ER because he was called by dermatology and PCP for elevated creatinine level. Patient is noticed to both leg swelling and feel nauseous and vomited several times in last week. The vomiting is stomach content, no blood in it. Patient denies fever, dysuria, increased frequency or urgency. Patient states he urinates normally without noticing decreased urine amount. Patient has a history of kidney stone with obstruction and had nephrostomy about 4 months ago. In emergency room, CT abdominal shows right ureter stone with obstruction, left kidney atrophy. Urology consult was called by ER doctor, instructed to place patient on nothing by mouth and plan for surgery in a.m. Past Med Surg Social Fam HX - Past Medical History Medical history: HIV/AIDS, kidney stones, renal disease Psychiatric history: anxiety, depression - Past Surgical History Surgical History: other - Social History Smoking Status: Current every day smoker Smokeless Tobacco Status: No Alcohol use: occasionally Drug use: none - Family History Mother Hx Family Cardiac Disorders: Yes Hx Family Cancer: Yes Internal Medicine - H&P: Meds Cetirizine HCl [Zyrtec] 10 mg PO AD 03/08/17 [History] Citalopram Hydrobromide [Celexa] 40 mg PO DAILY 03/08/17 [History] Doxycycline 100 mg PO BID 03/08/17 [History] Dronabinol [Marinol] 2.5 mg PO BID 03/08/17 [History] Efavirenz/Emtricitab/Tenofovir [Atripla Tablet] 1 tab PO DAILY 03/08/17 [History ] Gabapentin [Neurontin] 800 mg PO QID 03/08/17 [History] Glycopyrrolate [Robinul] 1 mg PO BID 03/08/17 [History] HydrOXYzine Pamoate [Vistaril] 50 mg PO BID 03/08/17 [History] Pnv with Ca,No.72/Iron/FA [Pnv Plus Multivit Tab] 1 tab PO DAILY [History] Pregabalin [Lyrica] 150 mg PO BID 03/08/17 [History] Benzoyl Peroxide 1 appl TP DAILY 03/27/17 [History] Ciclopirox 1 appl TP DAILY 03/27/17 [History] Divalproex (12 HR) [Depakote (12 HR)] 500 mg PO HS 03/27/17 [History] Meloxicam 15 mg PO DAILY 04/10/17 [History] Cetirizine HCl/Pseudoephedrine [Cetirizine-Pse ER 5-120 mg Tab] 1 each PO DAILY 07/19/17 [History] EPINEPHrine [Epipen] 0.3 mg IM ONCE PRN 07/19/17 [History] Fexofenadine HCl 180 mg PO AD 07/19/17 [History] Ranitidine HCl [Zantac] 300 mg PO DAILY 07/19/17 [History] 3 Allergy/AdvReac Type Severity Reaction Status Date / Time Cefaclor [From [facility]] Allergy Hives Verified 04/10/17 08:31 All Systems PM: A 10-system review of systems was performed and is negative for pertinent findings except as documented above in the HPI. - Constitutional Vitals: Temp Pulse Resp BP Pulse Ox 98.8 F 106 18 134/87 99 07/19/17 20:45 07/19/17 20:45 07/19/17 20:45 07/19/17 20:45 07/19/17 20:45 General appearance: Present: A&O X 3, pleasant, no acute distress, answers questions appropriately - Head Head exam: Present: atraumatic, normocephalic - Eye Eye exam: Present: PERRL, conjuntiva pink, sclera anicteric Pupils: Present: PERRL - Neck Neck exam general surgery: Present: supple, trachea midline. Absent: lymphadenopathy - Respiratory Respiratory exam: Present: CTAB. Absent: accessory muscle use, rales, rhonchi, wheezes - Cardiovascular Cardiovascular exam: Present: RRR, +S1, +S2. Absent: diastolic murmur, gallop, rubs, systolic murmur - GI/Abdominal GI/Abdominal exam: Present: normal bowel sounds, soft, no peritoneal signs. Absent: distended, tenderness - Extremities Exam Extremities exam: Present: warm, radial pulses palpable and symmetrical. Absent : calf tenderness, cyanotic, pedal edema - Neurological Exam Neurological exam: Present: CN II-XII intact, oriented X3, no focal deficits. Absent: pronater drift, facial droop, speech deficit - Skin Skin exam: Present: dry, intact Internal Med - H&P Results - Labs CBC & Chem 7: 07/19/17 21:48 07/19/17 21:48
[2017-07-19] MEDS: Acetaminophen 325 MG TABLET PO PRN (23:59)
[2017-07-20] MEDS: 0.9 % Sodium Chloride 1,000 ML IVC SCH
[2017-07-20] MEDS: Nicotine 21 MG PATCH.TD24 TD SCH ×2 (00:45→09:07)
[2017-07-20 05:47] LABS: Basophils % 0.4 %; Eosinophils # 0.3 K/mcL (0.0-0.6); Eosinophils % 2.7 %; Hematocrit 30.3 % (37.5-50.1); Hemoglobin 9.9 g/dL (12.9-16.9); Immature Granulocytes % 0.8 % (0-4); Lymphocytes # 4.4 K/mcL (0.6-4.6); Mean Corpuscular HGB Conc 32.7 g/dL (31.6-35.5); Mean Corpuscular Hemoglobin 34.6 pg (28.0-33.3); Mean Corpuscular Volume 105.9 fL (83.0-100.0); Mean Platelet Volume 10.7 fL (9.4-12.4); Monocytes % 9.5 %; Neutrophils # 4.3 K/mcL (1.6-8.9); Platelet Count 221 K/mcL (140-400); Red Blood Count 2.86 M/mcL (4.19-5.50); Red Cell Distribution Width 15.9 % (11.5-14.5); Segmented Neutrophils % 42.6 %
[2017-07-20 05:50] LABS: Prothrombin Time 10.2 Seconds (9.4-12.1)
[2017-07-20 06:01] LABS: Calcium 8.2 mg/dL (8.6-10.8); Potassium 4.3 mEq/L (3.5-4.5)
--- NOTE | 2017-07-20 07:00 | Urology - Consult Note ---
Date of Encounter: 07/20/17 Time of Encounter: 06:58 - Assessment and Plan (1) TESSIE (acute kidney injury) Current Visit: Yes Status: Acute Assessment and plan: Will likely improve after either ureteral stenting or nephrostomy tube. (2) Ureterolithiasis Current Visit: No Status: Acute Assessment and plan: We will plan on taking the patient to the operative room today for right ureteral stent placement. May potentially have interventional radiology place a nephrostomy tube depending on OR availability. Urology CN:HPI Consult date: 07/20/17 Reason for consult Urology: Other (right ureteral stone with acute renal insufficiency) Requesting physician: Robert Meier History of present illness: Robert is a 31-year-old male well known to me for recurrent kidney stones. Patient now admitted to the hospital secondary to acute renal insufficiency who was found to have a mid right ureteral stone approximately 1 cm total length. Patient with minimal pain at this time. Patient states he is still producing some urine. His right kidney is essentially a solitary kidney. No nausea or vomiting. No fevers. Past Med Surg Social Fam HX - Past Medical History Medical history: GERD, HIV/AIDS, kidney stones, renal disease Psychiatric history: anxiety, depression - Past Surgical History Surgical History: other - Social History Smoking Status: Current every day smoker Packs per day: 1 Smokeless Tobacco Status: No Alcohol use: rarely Drug use: none - Family History Mother Hx Family Cardiac Disorders: Yes (Heart disease, [place], [place]) Hx Family Cancer: Yes Hx Family Genitourinary Disorders: Yes Hx Family Endocrine Disorder: Yes (DM) Medications and Allergies Cetirizine HCl [Zyrtec] 10 mg PO AD 03/08/17 [History] Citalopram Hydrobromide [Celexa] 40 mg PO DAILY 03/08/17 [History] Doxycycline 100 mg PO BID 03/08/17 [History] Dronabinol [Marinol] 2.5 mg PO BID 03/08/17 [History] Efavirenz/Emtricitab/Tenofovir [Atripla Tablet] 1 tab PO DAILY 03/08/17 [History ] Gabapentin [Neurontin] 800 mg PO QID 03/08/17 [History] Glycopyrrolate [Robinul] 1 mg PO BID 03/08/17 [History] HydrOXYzine Pamoate [Vistaril] 50 mg PO BID 03/08/17 [History] Pnv with Ca,No.72/Iron/FA [Pnv Plus Multivit Tab] 1 tab PO DAILY [History] Pregabalin [Lyrica] 150 mg PO BID 03/08/17 [History] Benzoyl Peroxide 1 appl TP DAILY 03/27/17 [History] Ciclopirox 1 appl TP DAILY 03/27/17 [History] Divalproex (12 HR) [Depakote (12 HR)] 500 mg PO HS 03/27/17 [History] Meloxicam 15 mg PO DAILY 04/10/17 [History] Cetirizine HCl/Pseudoephedrine [Cetirizine-Pse ER 5-120 mg Tab] 1 each PO DAILY 07/19/17 [History] EPINEPHrine [Epipen] 0.3 mg IM ONCE PRN 07/19/17 [History] Fexofenadine HCl 180 mg PO AD 07/19/17 [History] Ranitidine HCl [Zantac] 300 mg PO DAILY 07/19/17 [History] 3 Allergy/AdvReac Type Severity Reaction Status Date / Time Cefaclor [From [facility]] Allergy Hives Verified 04/10/17 08:31 Review of Systems - Constitutional no chills, no fever(s) - EENT Nose, mouth and throat: no dizziness - Cardiovascular no chest pain - Respiratory no cough - Gastrointestinal no abdominal pain Exam Initial Vital Signs Temp Pulse Resp BP Pulse Ox 98.8 F 106 18 134/87 99 07/19/17 20:45 07/19/17 20:45 07/19/17 20:45 07/19/17 20:45 07/19/17 20:45 - General physical appearance Present: well developed - Respiratory Present: normal respiratory effort - Cardiovascular Cardiovascular exam IM: RRR - Abdomen Abdomen: Present: soft Urology Results - Labs 07/20/17 05:21 07/20/17 05:21 Abnormal lab results RBC 2.86 M/mcL (4.19-5.50) L 07/20/17 05:21 Hgb 9.9 g/dL (12.9-16.9) L 07/20/17 05:21 Hct 30.3 % (37.5-50.1) L 07/20/17 05:21 MCV 105.9 fL (83.0-100.0) H 07/20/17 05:21 MCH 34.6 pg (28.0-33.3) H 07/20/17 05:21 RDW 15.9 % (11.5-14.5) H 07/20/17 05:21 Chloride 122 mEq/L (98-109) H 07/20/17 05:21 Carbon Dioxide 13 mEq/L (19-29) L 07/20/17 05:21 BUN 44 mg/dL (8-26) H 07/20/17 05:21 Creatinine 4.67 mg/dL (0.72-1.25) H 07/20/17 05:21 Est GFR ( Amer) 18 (> 60) L 07/20/17 05:21 Est GFR (Non-Af Amer) 15 (> 60) L 07/20/17 05:21 Calculated Osmolality 308 (280-300) H 07/20/17 05:21 Calcium 8.2 mg/dL (8.6-10.8) L 07/20/17 05:21 Alkaline Phosphatase 187 Units/L (38-126) H 07/19/17 21:48 Albumin 2.3 g/dL (3.5-5.0) L 07/19/17 21:48 Globulin 4.4 g/dL (2.4-3.5) H 07/19/17 21:48 Albumin/Globulin Ratio 0.5 (1.1-2.2) L 07/19/17 21:48 Urine Protein 100 mg/dL (Neg-Trace) H 07/19/17 22:13 Urine Glucose (UA) 100 mg/dL (Normal) H 07/19/17 22:13 Urine Blood Moderate (Negative) H 07/19/17 22:13 Ur Leukocyte Esterase Small (Negative) H 07/19/17 22:13 Urine Microscopic RBC 5-15 per hpf (0-3) H 07/19/17 22:13 Urine Microscopic WBC 15-30 per hpf (0-3) H 07/19/17 22:13 Ur Squamous Epith Cells Many per lpf (None-Few) H 07/19/17 22:13 Diabetes panel 07/20/17 Range/Units 05:21 Sodium 144 (136-145) mEq/L Potassium 4.3 (3.5-4.5) mEq/L Chloride 122 H (98-109) mEq/L Carbon Dioxide 13 L (19-29) mEq/L BUN 44 H (8-26) mg/dL Creatinine 4.67 H (0.72-1.25) mg/dL Glucose 82 (70-99) mg/dL Calcium 8.2 L (8.6-10.8) mg/dL Calcium panel 07/20/17 Range/Units 05:21 Calcium 8.2 L (8.6-10.8) mg/dL Pituitary panel 07/20/17 Range/Units 05:21 Sodium 144 (136-145) mEq/L Potassium 4.3 (3.5-4.5) mEq/L Chloride 122 H (98-109) mEq/L Carbon Dioxide 13 L (19-29) mEq/L BUN 44 H (8-26) mg/dL Creatinine 4.67 H (0.72-1.25) mg/dL Glucose 82 (70-99) mg/dL Calcium 8.2 L (8.6-10.8) mg/dL Adrenal panel 07/20/17 Range/Units 05:21 Sodium 144 (136-145) mEq/L Potassium 4.3 (3.5-4.5) mEq/L Chloride 122 H (98-109) mEq/L Carbon Dioxide 13 L (19-29) mEq/L BUN 44 H (8-26) mg/dL Creatinine 4.67 H (0.72-1.25) mg/dL Glucose 82 (70-99) mg/dL Calcium 8.2 L (8.6-10.8) mg/dL All other labs normal. - Imaging CT scan - abdomen: image reviewed CT scan - pelvis: image reviewed Consult Discharge Plan - Plan Referrals: Ozzie Fall MD [Primary Care Provider] -
[2017-07-20] MEDS: Acetaminophen 325 MG TABLET PO PRN ×2 (09:06→23:23)
[2017-07-20] MEDS: Ondansetron 4 MG/2 ML VIAL IVP PRN (09:07)
--- NOTE | 2017-07-20 09:10 | Internal Med Progress Note ---
<Solomon Olson - Last Filed: 07/20/17 14:23> Date of Encounter: 07/20/17 Time of Encounter: 08:00 - Assessment and plan (1) Hydronephrosis Current Visit: No Status: Acute Assessment and plan: Patient has Hx of prior Hydronephrosis 2/2 to obstructing kidney stone on opposite side. Patient found to have an obstructing stone on imaging. Urology was consulted. Urology took patient to surgery for stent placement which was performed successfully. Will monitor the patient overnight. Likely d/c tomorrow. Qualifiers: Hydronephrosis type: with ureteral calculous obstruction Qualified Code(s) : N13.2 - Hydronephrosis with renal and ureteral calculous obstruction (2) TESSIE (acute kidney injury) Current Visit: No Status: Acute Assessment and plan: 2/2 to obstruction and hydronephrosis. Cr 4.95 on admission Cr. 4.67 this morning. Continue IV Fluids. Will recheck tomorrow morning and discharge if improving. (3) HIV (human immunodeficiency virus infection) Current Visit: No Status: Chronic Assessment and plan: Chronic, Stable. Continue home meds. last viral load undetectable. (4) Acidosis, metabolic Current Visit: No Status: Acute Assessment and plan: likely 2/2 to uremia/TESSIE improving continue IV fluids. monitor BMP. (5) Urinary tract obstruction by kidney stone Current Visit: Yes Status: Acute Assessment and plan: See above. - Subjective Interval history: Patient seen and examined by me at bedside. Patient reports some nausea and a slight headache. Patient has PRN medications available and was encourage to ask nurse for these meds. Patient denies Abd, Vomiting, Diarrhea, Flank pain, Urinary symptoms. Plan is for patient to have stent placed today - Constitutional Vitals: Temp Pulse Resp BP Pulse Ox 97.4 F L 80 14 105/69 97 07/20/17 06:34 07/20/17 06:34 07/20/17 06:34 07/20/17 06:34 07/20/17 08:15 General appearance: Present: A&O X 3, pleasant, no acute distress, answers questions appropriately - Head Head exam: Present: atraumatic, normocephalic - Eye Eye exam: Present: PERRL, conjuntiva pink, sclera anicteric Pupils: Present: PERRL - Neck Neck exam general surgery: Present: supple, trachea midline - Respiratory Respiratory exam: Present: CTAB. Absent: accessory muscle use, rales, rhonchi, wheezes - Cardiovascular Cardiovascular exam: Present: RRR, +S1, +S2. Absent: diastolic murmur, gallop, rubs, systolic murmur - GI/Abdominal GI/Abdominal exam: Present: normal bowel sounds, soft, no peritoneal signs. Absent: distended, tenderness - Extremities Exam Extremities exam: Present: warm. Absent: calf tenderness, cyanotic, pedal edema - Back Exam Back exam: Absent: CVA tenderness (L), CVA tenderness (R) - Neurological Exam Neurological exam: Present: alert, oriented X3, no focal deficits. Absent: facial droop, speech deficit - Skin Skin exam: Present: dry, intact, warm Internal Medicine: Result - Labs CBC & Chem 7: 07/20/17 05:21 07/20/17 05:21 Labs: Short CBC 07/20/17 Range/Units 05:21 WBC 10.0 (4.3-11.1) K/mcL Hgb 9.9 L (12.9-16.9) g/dL Hct 30.3 L (37.5-50.1) % Plt Count 221 (140-400) K/mcL Neutrophils # 4.3 (1.6-8.9) K/mcL BMP 07/20/17 05:21 Sodium 144 Potassium 4.3 Chloride 122 H Carbon Dioxide 13 L BUN 44 H Creatinine 4.67 H Glucose 82 Calcium 8.2 L - ABG Interpretation ABG results: PT/INR, D-dimer PT 10.2 Seconds (9.4-12.1) 07/20/17 05:21 Consult Discharge Plan - Plan Referrals: Ozzie Fall MD [Primary Care Provider] - <Marcus Lopez - Last Filed: 07/20/17 19:56> Date of Encounter: 07/20/17 - Assessment and plan (1) Hydronephrosis due to obstruction of ureter Current Visit: Yes Status: Acute (2) TESSIE (acute kidney injury) Current Visit: No Status: Acute (3) Acidosis, metabolic Current Visit: No Status: Acute (4) Atrophy of left kidney Current Visit: No Status: Chronic (5) HIV (human immunodeficiency virus infection) Current Visit: No Status: Chronic - Constitutional Vitals: Temp Pulse Resp BP Pulse Ox 97.7 F 74 16 114/79 100 07/20/17 14:26 07/20/17 14:26 07/20/17 14:26 07/20/17 13:03 07/20/17 14:26 Internal Medicine: Result - Labs CBC & Chem 7: 07/20/17 05:21 07/20/17 05:21 Labs: Short CBC 07/20/17 Range/Units 05:21 WBC 10.0 (4.3-11.1) K/mcL Hgb 9.9 L (12.9-16.9) g/dL Hct 30.3 L (37.5-50.1) % Plt Count 221 (140-400) K/mcL Neutrophils # 4.3 (1.6-8.9) K/mcL BMP 07/20/17 05:21 Sodium 144 Potassium 4.3 Chloride 122 H Carbon Dioxide 13 L BUN 44 H Creatinine 4.67 H Glucose 82 Calcium 8.2 L - ABG Interpretation ABG results: PT/INR, D-dimer PT 10.2 Seconds (9.4-12.1) 07/20/17 05:21 - Impressions Impressions Fluoroscopy 07/20/17 00:00 IMPRESSION: Intraprocedural fluoroscopic spot images as above. See separate procedure report for more information. D/ / Pablito Stevens MD / Pablito Stevens MD Interpreting Provider: Pablito Stevens MD X-Ray 07/20/17 00:00 IMPRESSION: Intraprocedural fluoroscopic spot images as above. See separate procedure report for more information. D/ / Pablito Stevens MD / Pablito Stevens MD Interpreting Provider: Pablito Stevens MD - Attending Attestation I examined this patient and my medical decision-making was reviewed with the Resident Physician on 07/20/17. I agree with the documented findings, disposition and treatment plan as described except to the extent set forth below. Mr. Toni is currently in observation for obstructive uropathy. Mr. Muñoz is resting post stent placement. No fever or chills. No CP or SOB. Exam Alert. Comfortable Heart reg No wheeze No edema I/P 1. Obstructive uropathy 2. HIV Further diagnoses and plan as above.
--- NOTE | 2017-07-20 10:31 | Anesthesia Evaluation PreOp ---
Date of Encounter: 07/20/17 Time of Encounter: 10:45 - Past History Planned Operation: cysto/R stent insertion Cardiac History: Denies any Significant Hx Pulmonary History: Former smoker [employer]ER History: Denies Any Significant HX, Other (anxiety) Other Medical History: Renal (hydronephrosis, ureteral stone), Other (HIV +) Anesthesia History: No Prior Anesthetic Complications, Past Anesthesia Alcohol Use: rarely Drug use: none Medications and Allergies Cetirizine HCl [Zyrtec] 10 mg PO AD 03/08/17 [History] Citalopram Hydrobromide [Celexa] 40 mg PO DAILY 03/08/17 [History] Doxycycline 100 mg PO BID 03/08/17 [History] Dronabinol [Marinol] 2.5 mg PO BID 03/08/17 [History] Efavirenz/Emtricitab/Tenofovir [Atripla Tablet] 1 tab PO DAILY 03/08/17 [History ] Gabapentin [Neurontin] 800 mg PO QID 03/08/17 [History] Glycopyrrolate [Robinul] 1 mg PO BID 03/08/17 [History] HydrOXYzine Pamoate [Vistaril] 50 mg PO BID 03/08/17 [History] Pnv with Ca,No.72/Iron/FA [Pnv Plus Multivit Tab] 1 tab PO DAILY [History] Pregabalin [Lyrica] 150 mg PO BID 03/08/17 [History] Benzoyl Peroxide 1 appl TP DAILY 03/27/17 [History] Ciclopirox 1 appl TP DAILY 03/27/17 [History] Divalproex (12 HR) [Depakote (12 HR)] 500 mg PO HS 03/27/17 [History] Meloxicam 15 mg PO DAILY 04/10/17 [History] Cetirizine HCl/Pseudoephedrine [Cetirizine-Pse ER 5-120 mg Tab] 1 each PO DAILY 07/19/17 [History] EPINEPHrine [Epipen] 0.3 mg IM ONCE PRN 07/19/17 [History] Fexofenadine HCl 180 mg PO AD 07/19/17 [History] Ranitidine HCl [Zantac] 300 mg PO DAILY 07/19/17 [History] 3 Allergy/AdvReac Type Severity Reaction Status Date / Time Cefaclor [From [facility]] Allergy Hives Verified 04/10/17 08:31 - Meds/Allergy Pre-op Review Medications Reviewed: Yes Allergies Reviewed: Yes Beta Blockers on Current Med List: No Anesthesia Results - Labs 07/20/17 05:21 07/20/17 05:21 Anesthesia Exam Selected Entries 07/20/17 06:34 Temperature 97.4 F L Pulse Rate 80 Respiratory Rate 14 Blood Pressure 105/69 O2 Sat by Pulse Oximetry 97 Weight: 72 kg NPO (# of Hours): over 8 hours - HEENT Pupil (Motor): Pupils equal Mallampati: II Teeth: Normal Oral Opening: Greater than 3 - Cardiac Rhythm: Regular Murmur: None - Pulmonary Breath Sounds: bilateral Clear Respiratory Effort: Symmetrical Anesthesia Assess/Plan ASA Score: 2 Modified Anjum Scale for Level of Consciousness: Cooperative, oriented, and tranquil Anesthetic Plan: General Monitoring Plan: Standard Monitors Recovery Plan: PACU (Discussed GA, risks. Agreed to proceed.)
[2017-07-20] MEDS ORDERED: Albuterol 2.5 MG/3 ML NEBULIZER IH ONE (11:14)
[2017-07-20] MEDS ORDERED: Albuterol 2.5 MG/3 ML NEBULIZER ONE (11:17)
[2017-07-20] MEDS ORDERED: Clindamycin 600 MG/50 ML 600 MG/50 ML IV.SOLN IVPB ONE ×2 (11:32→11:50)
[2017-07-20] MEDS ORDERED: *HR* Propofol 200 MG/20 ML VIAL IVP ONE (11:42)
[2017-07-20] MEDS ORDERED: *HR* FentaNYL (PF) 100 MCG/2 ML VIAL ONE (11:42)
[2017-07-20] MEDS ORDERED: *HR* Morphine 2 MG/ML SYRINGE IVP PRN (11:51)
--- NOTE | 2017-07-20 13:17 | Operative Note ---
Date of procedure: 07/20/17 Pre-op diagnosis: right ureteral stone and renal failure Post-op diagnosis: same Procedure: Cystoscopy and right 6 x 26 cm ureteral stent placement Anesthesia: MYRON Surgeon: Robert Meier Condition: stable Disposition: PACU Procedure in Detail: Patient was prepped and draped in normal sterile fashion. Timeout procedure performed. I then inserted the cystoscope into the patient's bladder. Cannulated the right ureteral orifice using a Glidewire. 6 x 26 cm stent was placed with good curl seen in the right kidney and in the bladder. Bladder was drained procedure was ended.
--- NOTE | 2017-07-20 16:54 | Electrocardiograph Report ---
[address] [address] Test Date: 2017-07-19 Pat Name: Robert Muñoz Department: [id number] Room: 3A14 Gender: M Boom Supervisor: BRISEYDA : 1985 Requested By: Juan Spangler Order Number: [id number] Reading MD: Tonja Andrews Measurements Intervals Elmo Rate: 91 P: 60 RI: 139 QRS: 40 QRSD: 88 T: 48 QT: 342 QTc: 391 Interpretive Statements SINUS RHYTHM Electronically Signed On 07-20-2017 16:52:12 EDT by Tonja Andrews
[2017-07-21] MEDS: 0.9 % Sodium Chloride 1,000 ML IVC SCH ×3 (00:44→17:20)
[2017-07-21 05:56] LABS: Hematocrit 30.6 % (37.5-50.1); Mean Corpuscular HGB Conc 32.7 g/dL (31.6-35.5); Mean Corpuscular Hemoglobin 34.4 pg (28.0-33.3); Mean Corpuscular Volume 105.2 fL (83.0-100.0); Platelet Count 213 K/mcL (140-400); Red Blood Count 2.91 M/mcL (4.19-5.50); Red Cell Distribution Width 15.7 % (11.5-14.5)
[2017-07-21 06:11] LABS: Calcium 8.1 mg/dL (8.6-10.8); Potassium 3.9 mEq/L (3.5-4.5)
--- NOTE | 2017-07-21 08:25 | Discharge Summary ---
Date of Encounter: 07/21/17 - Discharge Diagnosis (1) Hydronephrosis Status: Acute Qualifiers: Hydronephrosis type: with ureteral calculous obstruction Qualified Code(s) : N13.2 - Hydronephrosis with renal and ureteral calculous obstruction (2) TESSIE (acute kidney injury) Status: Acute (3) HIV (human immunodeficiency virus infection) Status: Chronic (4) Acidosis, metabolic Status: Acute (5) Urinary tract obstruction by kidney stone Status: Acute - Discharge Medications Home Medications: Cetirizine HCl [Zyrtec] 10 mg PO AD 03/08/17 [History] Citalopram Hydrobromide [Celexa] 40 mg PO DAILY 03/08/17 [History] Doxycycline 100 mg PO BID 03/08/17 [History] Dronabinol [Marinol] 2.5 mg PO BID 03/08/17 [History] Efavirenz/Emtricitab/Tenofovir [Atripla Tablet] 1 tab PO DAILY 03/08/17 [History ] Gabapentin [Neurontin] 800 mg PO QID 03/08/17 [History] Glycopyrrolate [Robinul] 1 mg PO BID 03/08/17 [History] HydrOXYzine Pamoate [Vistaril] 50 mg PO BID 03/08/17 [History] Pnv with Ca,No.72/Iron/FA [Pnv Plus Multivit Tab] 1 tab PO DAILY [History] Pregabalin [Lyrica] 150 mg PO BID 03/08/17 [History] Benzoyl Peroxide 1 appl TP DAILY 03/27/17 [History] Ciclopirox 1 appl TP DAILY 03/27/17 [History] Divalproex (12 HR) [Depakote (12 HR)] 500 mg PO HS 03/27/17 [History] Meloxicam 15 mg PO DAILY 04/10/17 [History] Cetirizine HCl/Pseudoephedrine [Cetirizine-Pse ER 5-120 mg Tab] 1 each PO DAILY 07/19/17 [History] EPINEPHrine [Epipen] 0.3 mg IM ONCE PRN 07/19/17 [History] Fexofenadine HCl 180 mg PO AD 07/19/17 [History] Ranitidine HCl [Zantac] 300 mg PO DAILY 07/19/17 [History] Allergies/Adverse Reactions: 3 Allergy/AdvReac Type Severity Reaction Status Date / Time Cefaclor [From [facility]] Allergy Hives Verified 04/10/17 08:31 Date of admission: 07/19/17 22:27 Primary care physician: Ozzie Fall MD - Patient Status Condition: Good - Discharge Instructions Follow Up With: Robert Meeir MD [Partnered Physician] - Ozzie Fall MD [Primary Care Provider] - 07/31/17 4:00 pm Hospital course: Mr. Muñoz is a 31 year old male - Time Spent with Patient Total time spent providing and/or coordinating discharge services: - Constitutional Vitals: Temp Pulse Resp BP Pulse Ox 97.8 F 69 14 99/63 99 07/21/17 07:16 07/21/17 07:16 07/21/17 07:16 07/21/17 07:16 07/21/17 07:16 General appearance: Present: A&O X 3, pleasant, no acute distress, answers questions appropriately
--- NOTE | 2017-07-21 08:31 | Urology Progress Note ---
Date of Encounter: 07/21/17 Time of Encounter: 08:30 - Assessment and Plan (1) TESSIE (acute kidney injury) Current Visit: Yes Status: Acute Assessment and plan: slowely improving. (2) Ureterolithiasis Current Visit: No Status: Acute Assessment and plan: sp stenting. patient will need f/u with me in 1-2 week for discussion of tx options. Progress Note Narrative: patient seen. feeling good. serum creatinine slowely improving. Objective Initial Vital Signs Temp Pulse Resp BP Pulse Ox 98.8 F 106 18 134/87 99 07/19/17 20:45 07/19/17 20:45 07/19/17 20:45 07/19/17 20:45 07/19/17 20:45 - General physical appearance Present: well developed - Abdomen Present: soft - Labs 07/21/17 05:13 07/21/17 05:13 Diabetes panel 07/21/17 Range/Units 05:13 Sodium 141 (136-145) mEq/L Potassium 3.9 (3.5-4.5) mEq/L Chloride 122 H (98-109) mEq/L Carbon Dioxide 13 L (19-29) mEq/L BUN 34 H D (8-26) mg/dL Creatinine 3.83 H (0.72-1.25) mg/dL Glucose 75 (70-99) mg/dL Calcium 8.1 L (8.6-10.8) mg/dL Calcium panel 07/21/17 Range/Units 05:13 Calcium 8.1 L (8.6-10.8) mg/dL Pituitary panel 07/21/17 Range/Units 05:13 Sodium 141 (136-145) mEq/L Potassium 3.9 (3.5-4.5) mEq/L Chloride 122 H (98-109) mEq/L Carbon Dioxide 13 L (19-29) mEq/L BUN 34 H D (8-26) mg/dL Creatinine 3.83 H (0.72-1.25) mg/dL Glucose 75 (70-99) mg/dL Calcium 8.1 L (8.6-10.8) mg/dL Adrenal panel 07/21/17 Range/Units 05:13 Sodium 141 (136-145) mEq/L Potassium 3.9 (3.5-4.5) mEq/L Chloride 122 H (98-109) mEq/L Carbon Dioxide 13 L (19-29) mEq/L BUN 34 H D (8-26) mg/dL Creatinine 3.83 H (0.72-1.25) mg/dL Glucose 75 (70-99) mg/dL Calcium 8.1 L (8.6-10.8) mg/dL Consult Discharge Plan - Plan Referrals: Robert Meier MD [Partnered Physician] - Ozzie Fall MD [Primary Care Provider] - 07/31/17 4:00 pm
[2017-07-21] MEDS: Acetaminophen 325 MG TABLET PO PRN ×2 (09:03→19:00)
[2017-07-21] MEDS: Nicotine 21 MG PATCH.TD24 TD SCH (09:04)
--- NOTE | 2017-07-21 10:12 | Internal Med Progress Note ---
<FrankleonidasjennySolomon zhou - Last Filed: 07/21/17 15:21> Date of Encounter: 07/21/17 Time of Encounter: 08:15 - Assessment and plan (1) Hydronephrosis Current Visit: No Status: Acute Assessment and plan: Patient has Hx of prior Hydronephrosis 2/2 to obstructing kidney stone on opposite side. -Patient found to have an obstructing stone on imaging. -Urology was consulted. -Urology took patient to surgery for stent placement which was performed successfully. -Will monitor the patient overnight. -Likely d/c tomorrow. Qualifiers: Hydronephrosis type: with ureteral calculous obstruction Qualified Code(s) : N13.2 - Hydronephrosis with renal and ureteral calculous obstruction (2) TESSIE (acute kidney injury) Current Visit: No Status: Acute Assessment and plan: 2/2 to obstruction and hydronephrosis. Cr 4.95 on admission Cr. 3.83 this morning, 3.7 on repeat this afternoon Continue IV Fluids. Will recheck tomorrow morning and discharge if improved. (3) HIV (human immunodeficiency virus infection) Current Visit: No Status: Chronic Assessment and plan: -Chronic, Stable. -Continue home meds. -last viral load undetectable. (4) Acidosis, metabolic Current Visit: No Status: Acute Assessment and plan: -likely 2/2 to uremia/TESSIE -improved -continue IV fluids. -monitor BMP. (5) Urinary tract obstruction by kidney stone Current Visit: Yes Status: Acute Assessment and plan: -See above. - Subjective Interval history: Patient seen and examined by me at bedside. Patient reports feeling well and wanting to go home. Patient denies Abd, Vomiting, Diarrhea, Flank pain, Urinary symptoms. Patient's Cr improved post stent placement to 3.83 from 4.67. Will repeat BMP this afternoon and if improved will discharge home. - Constitutional Vitals: Temp Pulse Resp BP Pulse Ox 97.8 F 69 14 99/63 99 07/21/17 07:16 07/21/17 07:16 07/21/17 07:16 07/21/17 07:16 07/21/17 07:16 General appearance: Present: A&O X 3, pleasant, no acute distress, answers questions appropriately - Head Head exam: Present: atraumatic, normocephalic - Eye Eye exam: Present: PERRL, conjuntiva pink, sclera anicteric Pupils: Present: PERRL - Neck Neck exam general surgery: Present: supple, trachea midline - Respiratory Respiratory exam: Present: CTAB. Absent: accessory muscle use, rales, rhonchi, wheezes - Cardiovascular Cardiovascular exam: Present: RRR, +S1, +S2. Absent: diastolic murmur, gallop, rubs, systolic murmur - GI/Abdominal GI/Abdominal exam: Present: normal bowel sounds, soft, no peritoneal signs. Absent: distended, tenderness - Extremities Exam Extremities exam: Present: warm. Absent: calf tenderness, cyanotic, pedal edema - Neurological Exam Neurological exam: Present: alert, oriented X3, no focal deficits. Absent: facial droop, speech deficit - Psychiatric Psychiatric exam: Present: normal affect, normal mood - Skin Skin exam: Present: dry, intact, warm Internal Medicine: Result - Labs CBC & Chem 7: 07/21/17 05:13 07/21/17 14:38 Labs: Short CBC 07/21/17 Range/Units 05:13 WBC 9.6 (4.3-11.1) K/mcL Hgb 10.0 L (12.9-16.9) g/dL Hct 30.6 L (37.5-50.1) % Plt Count 213 (140-400) K/mcL BMP 07/21/17 05:13 Sodium 141 Potassium 3.9 Chloride 122 H Carbon Dioxide 13 L BUN 34 H D Creatinine 3.83 H Glucose 75 Calcium 8.1 L - ABG Interpretation ABG results: PT/INR, D-dimer PT 10.2 Seconds (9.4-12.1) 07/20/17 05:21 - Impressions Impressions Fluoroscopy 07/20/17 00:00 IMPRESSION: Intraprocedural fluoroscopic spot images as above. See separate procedure report for more information. D/ / Pablito Stevens MD / Pablito Stevens MD Interpreting Provider: Pablito Stevens MD X-Ray 07/20/17 00:00 IMPRESSION: Intraprocedural fluoroscopic spot images as above. See separate procedure report for more information. D/ / Pablito Stevens MD / Pablito Stevens MD Interpreting Provider: Pablito Stevens MD Consult Discharge Plan - Plan Additional Instructions: Please Follow up with your Primary Care Provider within 1 week of discharge. Please Follow up with Urology as scheduled. Please resume all your home medications. Please return to the hospital if you experience any new or worsening symptoms. Referrals: Robert Meier MD [Partnered Physician] - Ozzie Fall MD [Primary Care Provider] - 07/31/17 4:00 pm <Marcus Lopez - Last Filed: 07/21/17 17:30> Date of Encounter: 07/21/17 - Assessment and plan (1) Hydronephrosis due to obstruction of ureter Current Visit: Yes Status: Acute (2) TESSIE (acute kidney injury) Current Visit: No Status: Acute (3) Acidosis, metabolic Current Visit: No Status: Acute (4) Atrophy of left kidney Current Visit: No Status: Chronic (5) HIV (human immunodeficiency virus infection) Current Visit: No Status: Chronic (6) Macrocytic anemia Current Visit: Yes Status: Chronic - Constitutional Vitals: Temp Pulse Resp BP Pulse Ox 98.2 F 79 14 107/71 99 07/21/17 16:46 07/21/17 16:46 07/21/17 16:46 07/21/17 16:46 07/21/17 16:46 Internal Medicine: Result - Labs CBC & Chem 7: 07/21/17 05:13 07/21/17 14:38 Labs: Short CBC 07/21/17 Range/Units 05:13 WBC 9.6 (4.3-11.1) K/mcL Hgb 10.0 L (12.9-16.9) g/dL Hct 30.6 L (37.5-50.1) % Plt Count 213 (140-400) K/mcL BMP 07/21/17 07/21/17 05:13 14:38 Sodium 141 141 Potassium 3.9 3.7 Chloride 122 H 120 H Carbon Dioxide 13 L 15 L BUN 34 H D 33 H Creatinine 3.83 H 3.70 H Glucose 75 101 H Calcium 8.1 L 8.3 L - ABG Interpretation ABG results: PT/INR, D-dimer PT 10.2 Seconds (9.4-12.1) 07/20/17 05:21 - Attending Attestation I examined this patient and my medical decision-making was reviewed with the Resident Physician on 07/21/17. I agree with the documented findings, disposition and treatment plan as described except to the extent set forth below. Mr. Muñoz is currently in observation for obstructive uropathy and TESSIE. Mr. Muñoz is feeling OK. Pain is not issue. His creatinine has improved some but not baseline. No fever or chills. No GI issues. Exam Alert. Comfortable Heart reg No wheeze Abd soft No edema I/P 1. Obstructive uropathy 2. TESSIE Further diagnoses and plan as above.
--- NOTE | 2017-07-21 10:15 | Discharge Summary ---
Date of Encounter: 07/21/17 - Discharge Diagnosis (1) Hydronephrosis Priority: Secondary Status: Acute Qualifiers: Hydronephrosis type: with ureteral calculous obstruction Qualified Code(s) : N13.2 - Hydronephrosis with renal and ureteral calculous obstruction (2) TESSIE (acute kidney injury) Priority: Primary Status: Acute (3) HIV (human immunodeficiency virus infection) Priority: Secondary Status: Chronic (4) Acidosis, metabolic Priority: Secondary Status: Acute (5) Urinary tract obstruction by kidney stone Priority: Secondary Status: Acute - Discharge Medications Home Medications: Cetirizine HCl [Zyrtec] 10 mg PO AD 03/08/17 [History] Citalopram Hydrobromide [Celexa] 40 mg PO DAILY 03/08/17 [History] Doxycycline 100 mg PO BID 03/08/17 [History] Dronabinol [Marinol] 2.5 mg PO BID 03/08/17 [History] Efavirenz/Emtricitab/Tenofovir [Atripla Tablet] 1 tab PO DAILY 03/08/17 [History ] Gabapentin [Neurontin] 800 mg PO QID 03/08/17 [History] Glycopyrrolate [Robinul] 1 mg PO BID 03/08/17 [History] HydrOXYzine Pamoate [Vistaril] 50 mg PO BID 03/08/17 [History] Pnv with Ca,No.72/Iron/FA [Pnv Plus Multivit Tab] 1 tab PO DAILY [History] Pregabalin [Lyrica] 150 mg PO BID 03/08/17 [History] Benzoyl Peroxide 1 appl TP DAILY 03/27/17 [History] Ciclopirox 1 appl TP DAILY 03/27/17 [History] Divalproex (12 HR) [Depakote (12 HR)] 500 mg PO HS 03/27/17 [History] Meloxicam 15 mg PO DAILY 04/10/17 [History] Cetirizine HCl/Pseudoephedrine [Cetirizine-Pse ER 5-120 mg Tab] 1 each PO DAILY 07/19/17 [History] EPINEPHrine [Epipen] 0.3 mg IM ONCE PRN 07/19/17 [History] Fexofenadine HCl 180 mg PO AD 07/19/17 [History] Ranitidine HCl [Zantac] 300 mg PO DAILY 07/19/17 [History] Allergies/Adverse Reactions: 3 Allergy/AdvReac Type Severity Reaction Status Date / Time Cefaclor [From [facility]] Allergy Hives Verified 04/10/17 08:31 Procedures/tests Complete & Pending: CT abd Pelvis: " FINDINGS: Lower Chest: Visualized portion of the lower chest demonstrates no acute abnormality. Organs: Absence of intravenous contrast limits assessment of solid organs. The liver is unremarkable. The gallbladder is present. The spleen, adrenal glands, pancreas are unremarkable. There is mild right hydronephrosis and hydroureter. Multiple stones are present in the distal 1/3 of the right ureter measuring up to 6 mm. This is the approximate same location as a stone seen on the prior CT scan. Severe atrophy of the left kidney. A few calcifications in the bilateral kidneys measuring up to 3 mm on the left. GI/Bowel: No dilated loops of bowel. The appendix is within normal limits. Stomach is filled with ingested material. Pelvis: Bladder and pelvic organs are unremarkable. Peritoneum/Retroperitoneum: No free intraperitoneal air or free fluid. The aorta is normal in course and caliber. No lymphadenopathy. Bones/Soft Tissues: No acute osseous abnormality. CT/CT abd pelvis wo no iv no oral IMPRESSION: 1. Multiple calculi in the distal 1/3 of the right ureter causing hydroureter and mild hydronephrosis. 2. Multiple bilateral renal calculi. 3. Severe atrophy of the left kidney." KUB XR: FINDINGS: 2 spot images of the abdomen and pelvis were obtained. New right ureteral stent in expected position with formed loops projecting over expected locations of the right renal pelvis and urinary bladder. No visualization of the previously seen calculi in the right ureter. No definite visualization of nonobstructing calculi in seen on CT in the right renal collecting system. XR/XR KUB IMPRESSION: Intraprocedural fluoroscopic spot images as above. See separate procedure report for more information. Cystoscopy and right 6 x 26 cm ureteral stent placement: Patient was prepped and draped in normal sterile fashion. Timeout procedure performed. I then inserted the cystoscope into the patient's bladder. Cannulated the right ureteral orifice using a Glidewire. 6 x 26 cm stent was placed with good curl seen in the right kidney and in the bladder. Bladder was drained procedure was ended. Date of admission: 07/19/17 22:27 Primary care physician: Ozzie Fall MD Consults: Urology Discharging clinician: Solomon Olsno Anticipated date of discharge: 07/21/17 - Patient Status Disposition: Home, Self-Care Condition: Good Functional capacity at discharge: independent ambulation Overall status at discharge: patient is progressing back to baseline - Discharge Instructions Follow Up With: Robert Meier MD [Partnered Physician] - Ozzie Fall MD [Primary Care Provider] - 07/31/17 4:00 pm Additional Instructions: Please Follow up with your Primary Care Provider within 1 week of discharge. Please Follow up with Urology as scheduled. Please resume all your home medications. Please return to the hospital if you experience any new or worsening symptoms. - Diet and Activity Activity: resume usual activities as tolerated Diet: advance to your usual diet Interval History: Patient seen and examined by me at bedside. Patient reports feeling well and wanting to go home. Patient denies Abd, Vomiting, Diarrhea, Flank pain, Urinary symptoms. Patient's Cr improved post stent placement to 3.83 from 4.67. Will repeat BMP this afternoon and if improved will discharge home. Hospital course: Mr. Muñoz is a 31 year old male c PMHx of HIV, history of TESSIE caused by kidney stone and obstruction who reports to the hospital due to finding abnormal lab results of increased creatinine of 7.65. Upon admission Patient was found to have an obstructing kidney stone and hydronephrosis and a Cr of 4.95. Urology was consulted and they took the patient to surgery and placed a stent. Patient' s Creatinine improved post procedure and he was sent home. - Time Spent with Patient Total time spent providing and/or coordinating discharge services: - Constitutional Vitals: Temp Pulse Resp BP Pulse Ox 97.8 F 69 14 99/63 99 07/21/17 07:16 07/21/17 07:16 07/21/17 07:16 07/21/17 07:16 07/21/17 07:16 General appearance: Present: A&O X 3, pleasant, no acute distress, answers questions appropriately - Head Head exam: Present: atraumatic, normocephalic - Eye Eye exam: Present: PERRL, conjuntiva pink, sclera anicteric Pupils: Present: PERRL - Neck Neck exam general surgery: Present: supple, trachea midline - Respiratory Respiratory exam: Present: CTAB. Absent: accessory muscle use, rales, rhonchi, wheezes - Cardiovascular Cardiovascular exam: Present: RRR, +S1, +S2. Absent: diastolic murmur, gallop, rubs, systolic murmur - GI/Abdominal GI/Abdominal exam: Present: normal bowel sounds, soft, no peritoneal signs. Absent: distended, tenderness - Extremities Exam Extremities exam: Present: warm. Absent: calf tenderness, cyanotic, pedal edema - Back Exam Back exam: Absent: CVA tenderness (L), CVA tenderness (R) - Neurological Exam Neurological exam: Present: alert, oriented X3, no focal deficits. Absent: facial droop, speech deficit - Skin Skin exam: Present: dry, intact
[2017-07-21] MEDS: EFAVIRENZ/EMTRICITAB/TENOFOVIR 1 EACH TABLET PO SCH (10:57)
[2017-07-21 14:57] LABS: Calcium 8.3 mg/dL (8.6-10.8); Potassium 3.7 mEq/L (3.5-4.5)
[2017-07-21] MEDS: Ondansetron 4 MG/2 ML VIAL IVP PRN (19:00)
[2017-07-21] MEDS: Sodium Bicarbonate 150 MEQ in D5% in Water 1,000 ML IVC SCH (19:03)
[2017-07-21] MEDS ORDERED: Acetaminophen/Butalbital/CaffeineTABLET PO PRN (21:36)
[2017-07-22 05:26] LABS: Calcium 8.2 mg/dL (8.6-10.8); Potassium 2.8 mEq/L (3.5-4.5)
[2017-07-22] MEDS: Ondansetron 4 MG/2 ML VIAL IVP PRN (05:43)
[2017-07-22] MEDS: Sodium Bicarbonate 150 MEQ in D5% in Water 1,000 ML IVC SCH (06:23)
--- NOTE | 2017-07-22 07:49 | Discharge Summary ---
<Solomon Olson - Last Filed: 07/22/17 10:10> Date of Encounter: 07/22/17 Time of Encounter: 09:24 - Discharge Diagnosis (1) Hydronephrosis Priority: Secondary Status: Acute Qualifiers: Hydronephrosis type: with ureteral calculous obstruction Qualified Code(s) : N13.2 - Hydronephrosis with renal and ureteral calculous obstruction (2) TESSIE (acute kidney injury) Priority: Primary Status: Acute (3) HIV (human immunodeficiency virus infection) Priority: Secondary Status: Chronic (4) Acidosis, metabolic Priority: Secondary Status: Acute (5) Urinary tract obstruction by kidney stone Priority: Secondary Status: Acute - Discharge Medications Home Medications: Cetirizine HCl [Zyrtec] 10 mg PO AD 03/08/17 [History] Citalopram Hydrobromide [Celexa] 40 mg PO DAILY 03/08/17 [History] Doxycycline 100 mg PO BID 03/08/17 [History] Dronabinol [Marinol] 2.5 mg PO BID 03/08/17 [History] Efavirenz/Emtricitab/Tenofovir [Atripla Tablet] 1 tab PO DAILY 03/08/17 [History ] Gabapentin [Neurontin] 800 mg PO QID 03/08/17 [History] Glycopyrrolate [Robinul] 1 mg PO BID 03/08/17 [History] HydrOXYzine Pamoate [Vistaril] 50 mg PO BID 03/08/17 [History] Pnv with Ca,No.72/Iron/FA [Pnv Plus Multivit Tab] 1 tab PO DAILY [History] Pregabalin [Lyrica] 150 mg PO BID 03/08/17 [History] Benzoyl Peroxide 1 appl TP DAILY 03/27/17 [History] Ciclopirox 1 appl TP DAILY 03/27/17 [History] Divalproex (12 HR) [Depakote (12 HR)] 500 mg PO HS 03/27/17 [History] Meloxicam 15 mg PO DAILY 04/10/17 [History] Cetirizine HCl/Pseudoephedrine [Cetirizine-Pse ER 5-120 mg Tab] 1 each PO DAILY 07/19/17 [History] EPINEPHrine [Epipen] 0.3 mg IM ONCE PRN 07/19/17 [History] Fexofenadine HCl 180 mg PO AD 07/19/17 [History] Ranitidine HCl [Zantac] 300 mg PO DAILY 07/19/17 [History] Allergies/Adverse Reactions: 3 Allergy/AdvReac Type Severity Reaction Status Date / Time Cefaclor [From [facility]] Allergy Hives Verified 04/10/17 08:31 Procedures/tests Complete & Pending: CT abd Pelvis: " FINDINGS: Lower Chest: Visualized portion of the lower chest demonstrates no acute abnormality. Organs: Absence of intravenous contrast limits assessment of solid organs. The liver is unremarkable. The gallbladder is present. The spleen, adrenal glands, pancreas are unremarkable. There is mild right hydronephrosis and hydroureter. Multiple stones are present in the distal 1/3 of the right ureter measuring up to 6 mm. This is the approximate same location as a stone seen on the prior CT scan. Severe atrophy of the left kidney. A few calcifications in the bilateral kidneys measuring up to 3 mm on the left. GI/Bowel: No dilated loops of bowel. The appendix is within normal limits. Stomach is filled with ingested material. Pelvis: Bladder and pelvic organs are unremarkable. Peritoneum/Retroperitoneum: No free intraperitoneal air or free fluid. The aorta is normal in course and caliber. No lymphadenopathy. Bones/Soft Tissues: No acute osseous abnormality. CT/CT abd pelvis wo no iv no oral IMPRESSION: 1. Multiple calculi in the distal 1/3 of the right ureter causing hydroureter and mild hydronephrosis. 2. Multiple bilateral renal calculi. 3. Severe atrophy of the left kidney." KUB XR: FINDINGS: 2 spot images of the abdomen and pelvis were obtained. New right ureteral stent in expected position with formed loops projecting over expected locations of the right renal pelvis and urinary bladder. No visualization of the previously seen calculi in the right ureter. No definite visualization of nonobstructing calculi in seen on CT in the right renal collecting system. XR/XR KUB IMPRESSION: Intraprocedural fluoroscopic spot images as above. See separate procedure report for more information. Cystoscopy and right 6 x 26 cm ureteral stent placement: Patient was prepped and draped in normal sterile fashion. Timeout procedure performed. I then inserted the cystoscope into the patient's bladder. Cannulated the right ureteral orifice using a Glidewire. 6 x 26 cm stent was placed with good curl seen in the right kidney and in the bladder. Bladder was drained procedure was ended. Date of admission: 07/19/17 22:27 Primary care physician: Ozzie Fall MD Consults: Urology Discharging clinician: Solomon Olson Anticipated date of discharge: 07/22/17 - Patient Status Disposition: Home, Self-Care Condition: Good Functional capacity at discharge: independent ambulation Overall status at discharge: patient is progressing back to baseline - Discharge Instructions Follow Up With: Robert Meier MD [Partnered Physician] - ([facility] WILL CALL DURING BUSSINESS HOURS WITH DATE AND TIME OF APPOINTMENT) Ozzie Fall MD [Primary Care Provider] - 07/31/17 4:00 pm Forms: Inpatient Work/School Release, [facility] Work/School Release Additional Instructions: Please Follow up with your Primary Care Provider within 1 week of discharge. Please Follow up with Urology as needed. Please Follow up with your Workforce Development Specialist as soon as possible. Please resume all your home medications. Please return to the hospital if you experience any new or worsening symptoms. - Diet and Activity Activity: resume usual activities as tolerated Diet: advance to your usual diet Interval History: Patient seen and examined by me at bedside. Patient complaining about a swelling on his perineum. He reports this is simillar to swelligns he has had in his groin before. 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 He is likely referring to Hidradenitis suppurativa. He says he normally follows up with his roll up guider operator who occasionally has to inject these lesions. Urology saw the patient this morning and based on his complaints consulted surgery. Surgery will see him today and if cleared will be sent home. I recommended he follow up with his normal roll up guider operator. He also reports some nausea. Patient's K was low this morning and is being repleted. Hospital course: Mr. Muñoz is a 31 year old male c PMHx of HIV, history of TESSIE caused by kidney stone and obstruction who reports to the hospital due to finding abnormal lab results of increased creatinine of 7.65. Upon admission Patient was found to have an obstructing kidney stone and hydronephrosis and a Cr of 4.95. Urology was consulted and they took the patient to surgery and placed a stent. Patient' s Creatinine improved post procedure and he was sent home.Surgery was consulted by Urology concerning the patient's hidradenitis suppurativa, but they determined nothing to do at this time. - Time Spent with Patient Total time spent providing and/or coordinating discharge services: 40 minutes - Constitutional Vitals: Temp Pulse Resp BP Pulse Ox 98.1 F 75 15 105/67 98 07/22/17 07:08 07/22/17 07:08 07/22/17 07:08 07/22/17 07:08 07/22/17 07:08 General appearance: Present: A&O X 3, pleasant, no acute distress, answers questions appropriately - Head Head exam: Present: atraumatic, normocephalic - Eye Eye exam: Present: conjuntiva pink, sclera anicteric - Neck Neck exam general surgery: Present: supple, trachea midline - Respiratory Respiratory exam: Present: CTAB. Absent: accessory muscle use, rales, rhonchi, wheezes - Cardiovascular Cardiovascular exam: Present: RRR, +S1, +S2. Absent: diastolic murmur, gallop, rubs, systolic murmur - GI/Abdominal GI/Abdominal exam: Present: normal bowel sounds, soft, no peritoneal signs. Absent: distended, tenderness - Additional comments: Patient has a a papule on his perineum. Not currently fluctuant or draining. - Extremities Exam Extremities exam: Present: warm, radial pulses palpable and symmetrical. Absent : calf tenderness, cyanotic, pedal edema - Neurological Exam Neurological exam: Present: alert, oriented X3. Absent: facial droop, speech deficit - Skin Skin exam: Present: dry, intact Additional comments: patient has multiple papules on his legs often with scabbign over the top. <Marcus Lopez - Last Filed: 07/22/17 19:37> Date of Encounter: 07/22/17 - Discharge Diagnosis (1) Hydronephrosis due to obstruction of ureter Priority: Primary Status: Acute (2) TESSIE (acute kidney injury) Status: Acute (3) Acidosis, metabolic Status: Acute (4) Atrophy of left kidney Priority: Secondary Status: Chronic (5) HIV (human immunodeficiency virus infection) Status: Chronic (6) Macrocytic anemia Priority: Secondary Status: Chronic (7) Hypokalemia Priority: Secondary Status: Acute (8) Hypomagnesemia Priority: Secondary Status: Acute Date of admission: 07/19/17 22:27 Primary care physician: Ozzie Fall MD Consults: 07/22/17 07:55 Consult to Surgery [CONS] Routine Consulting Provider: Cesar Liu Reason for Consult: eval perineal abscess Call Completed: Yes Hospital course: Mr. Muñoz is a 31 year old male - Time Spent with Patient Total time spent providing and/or coordinating discharge services: - Constitutional Vitals: Temp Pulse Resp BP Pulse Ox 97.9 F 73 15 112/72 100 07/22/17 10:43 07/22/17 10:43 07/22/17 10:43 07/22/17 10:43 07/22/17 10:43 - Attending Attestation I examined this patient and my medical decision-making was reviewed with the Resident Physician on 07/22/17. I agree with the documented findings, disposition and treatment plan as described except to the extent set forth below. Mr. Muñoz was admitted for obstructive uropathy. He is afebrile with stable vitals. He is ready for discharge home. Exam Alert. Comfortable Heart reg No wheeze Plan Replace K and Mag D/C home today.
--- NOTE | 2017-07-22 08:28 | Urology Progress Note ---
Date of Encounter: 07/22/17 Time of Encounter: 08:26 - Assessment and Plan (1) TESSIE (acute kidney injury) Current Visit: Yes Status: Acute Assessment and plan: improving slowely, but now with low K most likely secondary to post obstructive diuresis concentrating defect (2) Ureterolithiasis Current Visit: No Status: Acute Assessment and plan: sp stenting. (3) Perineal mass in male Current Visit: Yes Status: Acute Assessment and plan: I have asked DR. Liu to come evaluate the patient for this today. not a typical perineal abscess Progress Note Narrative: patient seen. serum cr slowely improving. K low today. patient also complaining of perineal induration. He states that this has happened many times in the past and will spont drain. Objective Initial Vital Signs Temp Pulse Resp BP Pulse Ox 98.8 F 106 18 134/87 99 07/19/17 20:45 07/19/17 20:45 07/19/17 20:45 07/19/17 20:45 07/19/17 20:45 - General physical appearance Present: well developed - Abdomen Present: soft - Genitourinary Present: other (perineal bump which is slightly mobile without obvious fluctuance) - Labs 07/21/17 05:13 07/22/17 03:56 Diabetes panel 07/21/17 07/22/17 Range/Units 14:38 03:56 Sodium 141 140 (136-145) mEq/L Potassium 3.7 2.8 L (3.5-4.5) mEq/L Chloride 120 H 117 H (98-109) mEq/L Carbon Dioxide 15 L 15 L (19-29) mEq/L BUN 33 H 31 H (8-26) mg/dL Creatinine 3.70 H 3.06 H (0.72-1.25) mg/dL Glucose 101 H 80 (70-99) mg/dL Calcium 8.3 L 8.2 L (8.6-10.8) mg/dL Calcium panel 07/21/17 07/22/17 Range/Units 14:38 03:56 Calcium 8.3 L 8.2 L (8.6-10.8) mg/dL Pituitary panel 07/21/17 07/22/17 Range/Units 14:38 03:56 Sodium 141 140 (136-145) mEq/L Potassium 3.7 2.8 L (3.5-4.5) mEq/L Chloride 120 H 117 H (98-109) mEq/L Carbon Dioxide 15 L 15 L (19-29) mEq/L BUN 33 H 31 H (8-26) mg/dL Creatinine 3.70 H 3.06 H (0.72-1.25) mg/dL Glucose 101 H 80 (70-99) mg/dL Calcium 8.3 L 8.2 L (8.6-10.8) mg/dL Adrenal panel 07/21/17 07/22/17 Range/Units 14:38 03:56 Sodium 141 140 (136-145) mEq/L Potassium 3.7 2.8 L (3.5-4.5) mEq/L Chloride 120 H 117 H (98-109) mEq/L Carbon Dioxide 15 L 15 L (19-29) mEq/L BUN 33 H 31 H (8-26) mg/dL Creatinine 3.70 H 3.06 H (0.72-1.25) mg/dL Glucose 101 H 80 (70-99) mg/dL Calcium 8.3 L 8.2 L (8.6-10.8) mg/dL Consult Discharge Plan - Plan Additional Instructions: Please Follow up with your Primary Care Provider within 1 week of discharge. Please Follow up with Urology as scheduled. Please resume all your home medications. Please return to the hospital if you experience any new or worsening symptoms. Referrals: Robert Meier MD [Partnered Physician] - Ozzie Fall MD [Primary Care Provider] - 07/31/17 4:00 pm
[2017-07-22] MEDS: EFAVIRENZ/EMTRICITAB/TENOFOVIR 1 EACH TABLET PO SCH (09:49)
[2017-07-22] MEDS: Nicotine 21 MG PATCH.TD24 TD SCH (09:58)
[2017-07-22 10:44] VITALS: BP 112/72
--- NOTE | 2017-07-22 11:11 | General Surgery Consult Note ---
Date of Encounter: 07/22/17 Time of Encounter: 10:49 History of Present Illness Consult date: 07/22/17 Reason for consult: other (aldair anal / left buttock abscess) Requesting physician: Robert Meier History of present illness: 31 yo, admitted to [facility] 07/19/17, for progressive renal failure related to right-sided obstructive hydronephrosis due to renal stones. The patient was seen, evaluated, and treated by [facility], Dr. Robert Meier. I was called to see the patient for recurring aldair anal "lesions" possible abscess. 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 Unfortunately, I have no further knowledge or information regarding this skin condition. The patient's primary physician is Dr Ozzie Fall. Past medical history: HIV/AIDs; recurrent TESSIE secondary to kidney stones, anxiety/depression Surgical history: Cystoscopy with right ureteral stent placement, 07/20/2017 Allergies: Cefaclor Medications: information / med list per admission H&P Cetirizine 10 mg by mouth as directed Citalopram 40 mg by mouth daily Doxycycline 100 mg by mouth twice a day (prescribed in February 2017) Dronabinol 2.5 mg by mouth twice a day (prescribed February 2017) Efavirenz/Emtricitab/Tenofovir (Atripla) 1 tab by mouth daily Gabapentin 800 mg by mouth 4 times a day Glycopyrrolate 1 mg by mouth twice a day Hydroxyzine 50 mg by mouth twice a day plus multivitamin 1 by mouth daily Pregabalin 150 mg by mouth twice a day Benzyl peroxide topically to be applied daily Ciclopirox topical once daily Divalproex 500 mg by mouth daily at bedtime Meloxicam 15 mg by mouth daily Fexofenadine 180 mg by mouth as directed Ranitidine 300 mg by mouth daily Social history: Every day smoker, quantity and duration not specified Physical examination: Thin, ill-appearing 31-year-old, in no acute distress Dark periorbital circles obvious; no detected jaundice, skin warm with normal texture and turgor Lungs: Clear Cardiac: Regular rate Abdomen: Soft nontender Rectal examination: Buttock notable for a small area area of induration consistent with a superficial infection/furuncle. Extremities: Multiple cutaneous lesions tibial and gatrocnemius regions bilaterally Impression: 31-year-old male recovering from acute kidney injury related to obstructive hydronephrosis right kidney. Left kidney is atrophic and likely minimally functional. Patient has a known skin condition for which he is treated by Dr. Mariscal. A small superficial abscess is noted left buttock. The patient does not describe any GI symptoms suggestive of inflammatory bowel disease but inflammatory bowel disease such as Crohn's can be associated with current perirectal lesions. I discussed the colonoscopy with the patient. He does not wish to protect consider it at this time but admits that Dr. Ozzie Fall has been recommending one for some time. This was again discussed and recommended. The patient indicates he has an appointment with Dr Fall, approx 07/31/2017. The patient was encouraged to discuss and schedule a colonoscopy in the near future per Dr. Youssef. Potential referral to gastroenterology should be considered particularly this patient is diagnosed with inflammatory bowel disease. Recommendations: Resume doxycycline (review orders indicated the patient is not currently on antibiotics) Warm/hot compresses to the affected area and left buttocks. Follow-up with me as needed. Past Med Surg Social Fam HX - Past Medical History Medical history: HIV/AIDS, kidney stones, renal disease Psychiatric history: anxiety, depression - Past Surgical History Surgical History: other - Social History Smoking Status: Current every day smoker Packs per day: 1 Smokeless Tobacco Status: No Alcohol use: occasionally Drug use: none - Family History Mother Hx Family Cardiac Disorders: Yes (Heart disease, [place], [place]) Hx Family Cancer: Yes Hx Family Genitourinary Disorders: Yes Hx Family Endocrine Disorder: Yes (DM) Medications and Allergies Cetirizine HCl [Zyrtec] 10 mg PO AD 03/08/17 [History] Citalopram Hydrobromide [Celexa] 40 mg PO DAILY 03/08/17 [History] Doxycycline 100 mg PO BID 03/08/17 [History] Dronabinol [Marinol] 2.5 mg PO BID 03/08/17 [History] Efavirenz/Emtricitab/Tenofovir [Atripla Tablet] 1 tab PO DAILY 03/08/17 [History ] Gabapentin [Neurontin] 800 mg PO QID 03/08/17 [History] Glycopyrrolate [Robinul] 1 mg PO BID 03/08/17 [History] HydrOXYzine Pamoate [Vistaril] 50 mg PO BID 03/08/17 [History] Pnv with Ca,No.72/Iron/FA [Pnv Plus Multivit Tab] 1 tab PO DAILY [History] Pregabalin [Lyrica] 150 mg PO BID 03/08/17 [History] Benzoyl Peroxide 1 appl TP DAILY 03/27/17 [History] Ciclopirox 1 appl TP DAILY 03/27/17 [History] Divalproex (12 HR) [Depakote (12 HR)] 500 mg PO HS 03/27/17 [History] Meloxicam 15 mg PO DAILY 04/10/17 [History] Cetirizine HCl/Pseudoephedrine [Cetirizine-Pse ER 5-120 mg Tab] 1 each PO DAILY 07/19/17 [History] EPINEPHrine [Epipen] 0.3 mg IM ONCE PRN 07/19/17 [History] Fexofenadine HCl 180 mg PO AD 07/19/17 [History] Ranitidine HCl [Zantac] 300 mg PO DAILY 07/19/17 [History] 3 Allergy/AdvReac Type Severity Reaction Status Date / Time Cefaclor [From [facility]] Allergy Hives Verified 04/10/17 08:31 Review of Systems All systems PM: A 10-system review of systems was performed and is negative for pertinent findings except as documented above in the HPI. General Surgery Exam Initial Vital Signs Temp Pulse Resp BP Pulse Ox 98.8 F 106 18 134/87 99 07/19/17 20:45 07/19/17 20:45 07/19/17 20:45 07/19/17 20:45 07/19/17 20:45 Exam Initial Vital Signs Temp Pulse Resp BP Pulse Ox 98.8 F 106 18 134/87 99 07/19/17 20:45 07/19/17 20:45 07/19/17 20:45 07/19/17 20:45 07/19/17 20:45 Results - Labs 07/21/17 05:13 07/22/17 03:56 Abnormal lab results RBC 2.91 M/mcL (4.19-5.50) L 07/21/17 05:13 Hgb 10.0 g/dL (12.9-16.9) L 07/21/17 05:13 Hct 30.6 % (37.5-50.1) L 07/21/17 05:13 MCV 105.2 fL (83.0-100.0) H 07/21/17 05:13 MCH 34.4 pg (28.0-33.3) H 07/21/17 05:13 RDW 15.7 % (11.5-14.5) H 07/21/17 05:13 Potassium 2.8 mEq/L (3.5-4.5) L 07/22/17 03:56 Chloride 117 mEq/L (98-109) H 07/22/17 03:56 Carbon Dioxide 15 mEq/L (19-29) L 07/22/17 03:56 BUN 31 mg/dL (8-26) H 07/22/17 03:56 Creatinine 3.06 mg/dL (0.72-1.25) H 07/22/17 03:56 Est GFR ( Amer) 29 (> 60) L 07/22/17 03:56 Est GFR (Non-Af Amer) 24 (> 60) L 07/22/17 03:56 Calcium 8.2 mg/dL (8.6-10.8) L 07/22/17 03:56 Alkaline Phosphatase 187 Units/L (38-126) H 07/19/17 21:48 Albumin 2.3 g/dL (3.5-5.0) L 07/19/17 21:48 Globulin 4.4 g/dL (2.4-3.5) H 07/19/17 21:48 Albumin/Globulin Ratio 0.5 (1.1-2.2) L 07/19/17 21:48 Urine Protein 100 mg/dL (Neg-Trace) H 07/19/17 22:13 Urine Glucose (UA) 100 mg/dL (Normal) H 07/19/17 22:13 Urine Blood Moderate (Negative) H 07/19/17 22:13 Ur Leukocyte Esterase Small (Negative) H 07/19/17 22:13 Urine Microscopic RBC 5-15 per hpf (0-3) H 07/19/17 22:13 Urine Microscopic WBC 15-30 per hpf (0-3) H 07/19/17 22:13 Ur Squamous Epith Cells Many per lpf (None-Few) H 07/19/17 22:13 Diabetes panel 07/21/17 07/22/17 Range/Units 14:38 03:56 Sodium 141 140 (136-145) mEq/L Potassium 3.7 2.8 L (3.5-4.5) mEq/L Chloride 120 H 117 H (98-109) mEq/L Carbon Dioxide 15 L 15 L (19-29) mEq/L BUN 33 H 31 H (8-26) mg/dL Creatinine 3.70 H 3.06 H (0.72-1.25) mg/dL Glucose 101 H 80 (70-99) mg/dL Calcium 8.3 L 8.2 L (8.6-10.8) mg/dL Calcium panel 07/21/17 07/22/17 Range/Units 14:38 03:56 Calcium 8.3 L 8.2 L (8.6-10.8) mg/dL Pituitary panel 07/21/17 07/22/17 Range/Units 14:38 03:56 Sodium 141 140 (136-145) mEq/L Potassium 3.7 2.8 L (3.5-4.5) mEq/L Chloride 120 H 117 H (98-109) mEq/L Carbon Dioxide 15 L 15 L (19-29) mEq/L BUN 33 H 31 H (8-26) mg/dL Creatinine 3.70 H 3.06 H (0.72-1.25) mg/dL Glucose 101 H 80 (70-99) mg/dL Calcium 8.3 L 8.2 L (8.6-10.8) mg/dL Adrenal panel 07/21/17 07/22/17 Range/Units 14:38 03:56 Sodium 141 140 (136-145) mEq/L Potassium 3.7 2.8 L (3.5-4.5) mEq/L Chloride 120 H 117 H (98-109) mEq/L Carbon Dioxide 15 L 15 L (19-29) mEq/L BUN 33 H 31 H (8-26) mg/dL Creatinine 3.70 H 3.06 H (0.72-1.25) mg/dL Glucose 101 H 80 (70-99) mg/dL Calcium 8.3 L 8.2 L (8.6-10.8) mg/dL All other labs normal. Consult Discharge Plan - Plan Additional Instructions: Please Follow up with your Primary Care Provider within 1 week of discharge. Please Follow up with Urology as needed. Please Follow up with your Medicaid Nurse as soon as possible. Please resume all your home medications. Please return to the hospital if you experience any new or worsening symptoms. Referrals: Robert Meier MD [Partnered Physician] - ([facility] WILL CALL DURING BUSSINESS HOURS WITH DATE AND TIME OF APPOINTMENT) Ozzie Fall MD [Primary Care Provider] - 07/31/17 4:00 pm
[2017-07-22] MEDS ORDERED: Magnesium Sulfate 2 GM in D5% in Water 100 ML IVPB ONE (13:04)
== END 2017-07-22 15:02 | disposition home or self-care (01) ==
LOC: EMEROO 20:39 → 3ANU 20:39
PROVIDERS: ADMIT Internal Medicine; ATTEND Internal Medicine

== ENCOUNTER 2017-07-31 14:47 | Inpatient (IN) ==
[2017-07-31 15:19] LABS: Bilirubin,Urine Negative (Negative); Blood,Urine Moderate (Negative); Clarity,Urine Clear (Clear); Color,Urine Yellow (Yellow); Glucose,Urine (UA) 250 mg/dL (Normal); Ketones,Urine Trace mg/dL (Negative); Leukocyte Esterase,Urine Moderate (Negative); Nitrite,Urine Negative (Negative); PH,Urine 6.5 pH Units (5.0-8.0); Protein,Urine >=300 mg/dL (Neg-Trace); Specific Gravity,Urine 1.021 (1.010-1.025); Urobilinogen,Urine Normal (Normal)
[2017-07-31 15:25] LABS: Bacteria,Urine None Seen per hpf (None-Few); Hyaline Casts,Urine None Seen per lpf (None-Few); RBC,Urine 15-30 per hpf (0-3); Squamous Epithelial Cell,Urine Many per lpf (None-Few); WBC,Urine 15-30 per hpf (0-3)
[2017-07-31 16:03] LABS: Basophils # 0.1 K/mcL (0.0-0.2); Basophils % 0.4 %; Hematocrit 32.8 % (37.5-50.1); Hemoglobin 10.8 g/dL (12.9-16.9); Immature Granulocytes % 4.1 % (0-4); Lymphocytes % 4.8 %; Mean Corpuscular HGB Conc 32.9 g/dL (31.6-35.5); Mean Corpuscular Hemoglobin 34.1 pg (28.0-33.3); Mean Corpuscular Volume 103.5 fL (83.0-100.0); Monocytes # 1.5 K/mcL (0.0-1.3); Monocytes % 7.3 %; Neutrophils # 17.2 K/mcL (1.6-8.9); Platelet Count 373 K/mcL (140-400); Red Blood Count 3.17 M/mcL (4.19-5.50); Red Cell Distribution Width 15.6 % (11.5-14.5); Segmented Neutrophils % 83.4 %
[2017-07-31 16:17] LABS: Albumin 2.5 g/dL (3.5-5.0); Albumin/Globulin Ratio 0.5 (1.1-2.2); Bilirubin,Direct 0.2 mg/dL (0.0-0.5); Bilirubin,Indirect 0.1 mg/dL (0.0-1.2); Bilirubin,Total 0.3 mg/dL (0.2-1.2); Calcium 9.3 mg/dL (8.6-10.8); Globulin 4.9 g/dL (2.4-3.5); Potassium 3.1 mEq/L (3.5-4.5); Total Protein 7.4 g/dL (6.0-8.3)
--- NOTE | 2017-07-31 16:34 | Emergency Department Note ---
START Narrative - START START: I examined this patient and my medical decision-making was reviewed with the MEAT PACKER/PA/Advanced Practice Nurse/Resident Physician. I agree with the documented findings, disposition and treatment plan as described except to the extent set forth below. ED attending note: Patient seen with emergency medicine resident Dr. BEAR. We independently evaluated the patient. We independently had [id number] contact with the patient. Please see a copy of his note for details of the history and physical, evaluation, management and disposition of this emergency Department patient. Briefly: A 41-year-old male history of HIV and a IDS, presents with perineal wound discharge abdominal pain fatigue and loss of appetite and general malaise. Patient appears ill. Cachectic and thin. The patient had screening labs and abdominopelvic CT. Providing 30 minutes. SERVICE this patient, admission and anticipated, disposition pending.
[2017-07-31] MEDS ORDERED: *HR* HYDROmorphone (PF) 1 MG/ML SYRINGE IVP ONE ×2 (16:52→19:44)
[2017-07-31] MEDS ORDERED: Ondansetron 4 MG/2 ML VIAL IVP ONE (17:02)
--- NOTE | 2017-07-31 17:28 | Emergency Department Note ---
Disposition Clinical Impression: TESSIE (acute kidney injury), Abscess of skin or subcutaneous tissue, HIV (human immunodeficiency virus infection), Pancreatitis, Leukocytosis Disposition: Admitted As Inpatient Condition: Fair Referrals: Ozzie Fall MD [Primary Care Provider] - Forms: ED Satisfaction Letter Time of Disposition: 19:04 General Adult HPI - General Chief complaint: ED Weakness Stated complaint: Multiple complaints Time Seen by Provider: 07/31/17 16:21 Source: patient Mode of arrival: ambulatory Limitations: no limitations Nursing Notes Reviewed: Yes Vital Signs Reviewed: Yes - History of Present Illness HPI Narrative: Patient presents to the ED with the chief complaint of abdominal pain. Patient is HIV positive and has a history of nephrolithiasis with stent placement approximately one to 2 weeks ago. Is ending now with acutely worsening abdominal pain, nausea, bilious vomiting. He also states that he had a peritoneal abscess that was drained by his engineer chief a few days ago. States that it is still open and draining, but it is causing him significant pain due to it pushing up on his scrotum and making him more nauseated. States he feels like his kidney stones are getting worse. Denies any fever, but states she has had chills and feels worse than when he was admitted to the hospital. Pain Scale: 10 - Related Data Home Medications Medication Instructions Recorded Confirmed Cetirizine HCl [Zyrtec] 10 mg PO AD 03/08/17 07/31/17 Citalopram Hydrobromide [Celexa] 40 mg PO DAILY 03/08/17 07/31/17 Doxycycline 100 mg PO BID 03/08/17 07/31/17 Dronabinol [Marinol] 2.5 mg PO BID 03/08/17 07/31/17 Efavirenz/Emtricitab/Tenofovir 1 tab PO DAILY 03/08/17 07/31/17 [Atripla Tablet] Gabapentin [Neurontin] 800 mg PO QID 03/08/17 07/31/17 Glycopyrrolate [Robinul] 1 mg PO BID 03/08/17 07/31/17 HydrOXYzine Pamoate [Vistaril] 50 mg PO BID 03/08/17 07/31/17 Pnv with Ca,No.72/Iron/FA [Pnv 1 tab PO DAILY 03/08/17 07/31/17 Plus Multivit Tab] Pregabalin [Lyrica] 150 mg PO BID 03/08/17 07/31/17 Benzoyl Peroxide 1 appl TP DAILY 03/27/17 07/31/17 Ciclopirox 1 appl TP DAILY 03/27/17 07/31/17 Divalproex (12 HR) [Depakote (12 500 mg PO HS 03/27/17 07/31/17 HR)] Meloxicam 15 mg PO DAILY 04/10/17 07/31/17 Cetirizine HCl/Pseudoephedrine 1 each PO DAILY 07/19/17 07/31/17 [Cetirizine-Pse ER 5-120 mg Tab] EPINEPHrine [Epipen] 0.3 mg IM ONCE PRN 07/19/17 07/31/17 Fexofenadine HCl 180 mg PO AD 07/19/17 07/31/17 Ranitidine HCl [Zantac] 300 mg PO DAILY 07/19/17 07/31/17 Penicillin VK [Pencillin VK] 500 mg PO TID 07/31/17 07/31/17 Previous Rx's Medication Instructions Recorded Sulfamethoxazole/Trimeth DS 1 each PO BID #20 tablet 07/24/17 [Bactrim DS] Allergies Allergy/AdvReac Type Severity Reaction Status Date / Time Cefaclor [From [facility]] Allergy Hives Verified 07/31/17 15:03 All systems ED: reviewed and negative except as stated. Constitutional: Reports: chills, weakness. Denies: fever Cardiovascular: Denies: chest pain Respiratory: Denies: cough, dyspnea Gastrointestinal: Reports: abdominal pain, nausea, vomiting. Denies: diarrhea Genitourinary: Reports: as per HPI, genital lesions. Denies: dysuria, hematuria , testicular pain Musculoskeletal: Denies: neck pain Integumentary: Reports: as per HPI Neurological: Reports: weakness Endocrine: Reports: fatigue Past Medical History - Past Medical History Attestation: Yes The following information was validated with the patient. Source: patient Medical history: Reports: HIV/AIDS, kidney stones, renal disease Surgical history: Reports: non-contributory, other Psychiatric history: Reports: anxiety, depression - Social History Smoking Status: Current every day smoker Smokeless Tobacco Status: No Alcohol use: Reports: none Drug use: Reports: none Physical Exam - General General appearance: alert, anxious - Head Head exam: atraumatic, normocephalic, normal inspection - ENT ENT exam: mucous membranes dry - Respiratory Respiratory exam: Present: normal lung sounds bilaterally - Cardiovascular Cardiovascular exam: Present: regular rate, normal rhythm, normal heart sounds - Abdominal Exam Abdominal exam: Present: soft, distention, guarding, diminished bowel sounds. Absent: rebound, rigidity Abdominal tenderness: Present: diffuse, moderate - Male exam: Present: other (Patient does have a surgically opened area in the perineum, just left of midline with surrounding cellulitis, no active drainage, no ischemia, moderately tender, no testicular tenderness or penile discharge. No perianal fistula or abscess noted) - Extremities Exam Extremities exam: Present: normal inspection, full ROM. Absent: tenderness, pedal edema - Neurological Exam Neurological exam: Present: alert, oriented X3 - Psychiatric Psychiatric exam: Present: anxious, other (Tearful) - Skin Skin exam: Present: warm, dry Course Course Narrative: Patient presenting with multiple complaints but mainly abdominal pain, nausea and vomiting. Appears ill but nontoxic. Septic work up initiated with CT abdomen and pelvis, likely admission - Reevaluation(s) Reevaluation #1: Patient has pancreatitis clinically and elevated lipase. CT showed small fluid collection consistent with perforated duodenal ulcer versus pancreatitis. Newton pancreatitis more likely. Abdomen is not acutely surgical. No guarding. After pain medication. Feeling somewhat better. Patient does have HIV and will need to be admitted for further workup. I spoke with on-call surgeon, Dr. Wells who will consult on the patient. Patient was admitted to the medical service. Time: 19:02 Vital Signs Temperature 97.6 F 07/31/17 14:58 Pulse Rate 85 07/31/17 14:58 Respiratory Rate 16 07/31/17 14:58 Blood Pressure 123/84 07/31/17 14:58 O2 Sat by Pulse Oximetry 100 07/31/17 14:58 Temperature 97.6 F 07/31/17 14:58 Pulse Rate 85 07/31/17 14:58 Respiratory Rate 16 07/31/17 14:58 Blood Pressure 123/84 07/31/17 14:58 O2 Sat by Pulse Oximetry 100 07/31/17 14:58 Oxygen Delivery Oxygen Delivery Room Air Medical Decision Making - Lab Data Result diagrams: 07/31/17 15:50 07/31/17 15:50 Lab Results 07/31/17 07/31/17 07/31/17 Range/Units 15:09 15:50 15:50 WBC 20.6 H (4.3-11.1) K/mcL RBC 3.17 L (4.19-5.50) M/mcL Hgb 10.8 L (12.9-16.9) g/dL Hct 32.8 L (37.5-50.1) % MCV 103.5 H (83.0-100.0) fL MCH 34.1 H (28.0-33.3) pg MCHC 32.9 (31.6-35.5) g/dL RDW 15.6 H (11.5-14.5) % Plt Count 373 (140-400) K/mcL MPV 9.0 L (9.4-12.4) fL Immature Gran % 4.1 H (0-4) % Seg Neutrophils % 83.4 % Lymphocytes % 4.8 % Monocytes % 7.3 % Eosinophils % 0.0 % Basophils % 0.4 % Neutrophils # 17.2 H (1.6-8.9) K/mcL Lymphocytes # 1.0 (0.6-4.6) K/mcL Monocytes # 1.5 H (0.0-1.3) K/mcL Eosinophils # 0.0 (0.0-0.6) K/mcL Basophils # 0.1 (0.0-0.2) K/mcL Sodium 141 (136-145) mEq/L Potassium 3.1 L (3.5-4.5) mEq/L Chloride 120 H (98-109) mEq/L Carbon Dioxide 13 L (19-29) mEq/L BUN 33 H (8-26) mg/dL Creatinine 3.07 H (0.72-1.25) mg/dL Est GFR ( Amer) 29 L (> 60) Est GFR (Non-Af Amer) 24 L (> 60) BUN/Creatinine Ratio 11 (6-26) Glucose 107 H (70-99) mg/dL Calculated Osmolality 300 (280-300) Lactic Acid (0.5-2.2) mmol/L Calcium 9.3 (8.6-10.8) mg/dL Total Bilirubin 0.3 (0.2-1.2) mg/dL Direct Bilirubin 0.2 (0.0-0.5) mg/dL Indirect Bilirubin 0.1 (0.0-1.2) mg/dL AST 18 (5-34) Units/L ALT 30 (0-55) Units/L Alkaline Phosphatase 156 H (38-126) Units/L C-Reactive Protein (Less than 5) mg/L Serum Total Protein 7.4 (6.0-8.3) g/dL Albumin 2.5 L (3.5-5.0) g/dL Globulin 4.9 H (2.4-3.5) g/dL Albumin/Globulin Ratio 0.5 L (1.1-2.2) Amylase 483 H (25-125) Units/L Lipase 2719 H (8-78) Units/L Urine Color Yellow (Yellow) Urine Clarity Clear (Clear) Urine pH 6.5 (5.0-8.0) pH Units Ur Specific [place] 1.021 (1.010-1.025) Urine Protein >=300 H (Neg-Trace) mg/dL Urine Glucose (UA) 250 H (Normal) mg/dL Urine Ketones Trace H (Negative) mg/dL Urine Blood Moderate H (Negative) Urine Nitrite Negative (Negative) Urine Bilirubin Negative (Negative) Urine Urobilinogen Normal (Normal) mg/dL Ur Leukocyte Esterase Moderate H (Negative) Urine Microscopic RBC 15-30 H (0-3) per hpf Urine Microscopic WBC 15-30 H (0-3) per hpf Ur Squamous Epith Cells Many H (None-Few) per lpf Urine Bacteria None Seen (None-Few) per hpf Hyaline Casts None Seen (None-Few) per lpf Ur Culture Indicated? YES A (NO) 07/31/17 07/31/17 Range/Units 16:44 16:44 WBC (4.3-11.1) K/mcL RBC (4.19-5.50) M/mcL Hgb (12.9-16.9) g/dL Hct (37.5-50.1) % MCV (83.0-100.0) fL MCH (28.0-33.3) pg MCHC (31.6-35.5) g/dL RDW (11.5-14.5) % Plt Count (140-400) K/mcL MPV (9.4-12.4) fL Immature Gran % (0-4) % Seg Neutrophils % % Lymphocytes % % Monocytes % % Eosinophils % % Basophils % % Neutrophils # (1.6-8.9) K/mcL Lymphocytes # (0.6-4.6) K/mcL Monocytes # (0.0-1.3) K/mcL Eosinophils # (0.0-0.6) K/mcL Basophils # (0.0-0.2) K/mcL Sodium (136-145) mEq/L Potassium (3.5-4.5) mEq/L Chloride (98-109) mEq/L Carbon Dioxide (19-29) mEq/L BUN (8-26) mg/dL Creatinine (0.72-1.25) mg/dL Est GFR ( Amer) (> 60) Est GFR (Non-Af Amer) (> 60) BUN/Creatinine Ratio (6-26) Glucose (70-99) mg/dL Calculated Osmolality (280-300) Lactic Acid 0.5 (0.5-2.2) mmol/L Calcium (8.6-10.8) mg/dL Total Bilirubin (0.2-1.2) mg/dL Direct Bilirubin (0.0-0.5) mg/dL Indirect Bilirubin (0.0-1.2) mg/dL AST (5-34) Units/L ALT (0-55) Units/L Alkaline Phosphatase (38-126) Units/L C-Reactive Protein 18 H (Less than 5) mg/L Serum Total Protein (6.0-8.3) g/dL Albumin (3.5-5.0) g/dL Globulin (2.4-3.5) g/dL Albumin/Globulin Ratio (1.1-2.2) Amylase (25-125) Units/L Lipase (8-78) Units/L Urine Color (Yellow) Urine Clarity (Clear) Urine pH (5.0-8.0) pH Units Ur Specific Tal[place] (1.010-1.025) Urine Protein (Neg-Trace) mg/dL Urine Glucose (UA) (Normal) mg/dL Urine Ketones (Negative) mg/dL Urine Blood (Negative) Urine Nitrite (Negative) Urine Bilirubin (Negative) Urine Urobilinogen (Normal) mg/dL Ur Leukocyte Esterase (Negative) Urine Microscopic RBC (0-3) per hpf Urine Microscopic WBC (0-3) per hpf Ur Squamous Epith Cells (None-Few) per lpf Urine Bacteria (None-Few) per hpf Hyaline Casts (None-Few) per lpf Ur Culture Indicated? (NO)
[2017-07-31] MEDS ORDERED: Piperacillin/Tazobactam 4.5 GM in D5% in Water (Mini-Bag+) 100 ML IVPB ONE (18:41)
[2017-07-31] MEDS ORDERED: *HR* HYDROmorphone (PF) 1 MG/ML SYRINGE ONE (19:47)
--- NOTE | 2017-07-31 22:02 | Internal Med History&Physical ---
Date of Encounter: 07/31/17 Time of Encounter: 21:59 Assessment and Plan (1) Pancreatitis Current visit: Yes Status: Acute Based on clinical, laboratory ,radiology findings I suspect this could be acute pancreatitis. Pending general surgery evaluation in the morning for further recommendations. Will continue conservative measures with IV fluids, Nothing by mouth, IV pain medicines for pain control Continue empiric IV antibiotics for SIR presentation overnight. Blood cultures were not performed in the ED prior to first dose antibiotics Check lipid level Check right upper quadrant ultrasound stone disease If w/u unrevealing, could this related to HIV and meds ? Qualifiers: Chronicity: acute Qualified Code(s): K85.90 - Acute pancreatitis without necrosis or infection, unspecified (2) SIRS (systemic inflammatory response syndrome) Current visit: Yes Status: Acute Empiric antibiotics, supportive care, further management pending hospital course (3) HIV (human immunodeficiency virus infection) Current visit: Yes Status: Chronic Continue antiviral (4) Chronic kidney disease (CKD) Current visit: Yes Status: Acute Appear stable. Monitor for volume overload in a setting of aggressive IV fluids for treatment of acute pancreatitis, status post presentation Qualifiers: Qualified Code(s): N18.4 - Chronic kidney disease, stage 4 (severe) Internal Medicine - H&P: HPI Chief complaint: Abdominal pain History of present illness: Mr. Muñoz is a 31 year old male with hx of HIV on HARRT, CKD, schizoprenia who presents with acute onset abdominal pain suspicious for acute pancreatitis ( mostly likey) although the ED reported some suspicion for alternate dx of duodudenal perforation ? base on imaging. Dr Valle surgery refrigeration systems installer was consulted and will evaluate patient in the morning. He reports acute pain in the abdomen starting yesterday evening after taking his pills before going to bed. Pain located in the periumbilical region, epigastric region in the mid abdomen, 10 out of 10, radiation to the back. Associated with progressive nausea and emesis overnight and into the day today. Emesis described as green bilious nonbloody. Excruciating abdominal pain improved with IV opiate medicines. He denies any current alcohol history Elevated white count and lipase. Imaging suspicious for pancreatitis On review she reports a history of abscess drained by dermatology a few days ago. He also underwent a right ureteral stent placement for renal stone by Dr. serra a week ago CT/CT abd pelvis wo no iv no oral IMPRESSION: Extensive fat stranding of the anterior perirenal space. These findings are suggestive of a colitis or pancreatitis, or less likely a perforated duodenal ulcer. Recommend correlation with amylase and lipase levels. Partially visualized loculated fluid collection inferior aspect of the scrotum, suboptimally evaluated on this study, containing gas locules and fluid, consistent with abscess. However, for dedicated characterization, sonography is recommended. There is a 3 x 2 mm right lower lobe lung nodule. Lung nodule recommendations per the Fleischner Society are given below. Extensive intramural fat deposition of the colon diffusely and of the ileum including the terminal ileum, this finding is nonspecific however, can be in seen in the setting of prior bowel inflammation, given extensive involvement, this may be sequela of specifically inflammatory bowel disease. Numerous bilateral calculi, predominately in the right kidney, nonobstructive. Right ureteral stent is in place. Though not optimally evaluated on this study, there is suggestion of CAM morphology of the left femur and questionable CAM morphology of the right femur. 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 RECOMMENDATIONS: Fleischner Society guidelines for follow-up and management of incidentally detected pulmonary nodules: Single Solid Nodule: Nodule size less than 6 mm In a low-risk patient, no routine follow-up. In a high-risk patient, optional CT at 12 months. - Low risk patients include individuals with minimal or absent history of smoking and other known risk factors. - High risk patients include individuals with a history or smoking or known risk factors. Radiology 2017 http://pubs.rsna.org/doi/full/10.1148/radiol.[email or web address] Past Med Surg Social Fam HX - Past Medical History Medical history: HIV/AIDS, kidney stones, renal disease Psychiatric history: anxiety, depression - Past Surgical History Surgical History: non-contributory, other - Social History Smoking Status: Current every day smoker Packs per day: 1 Smokeless Tobacco Status: No Alcohol use: rarely Drug use: none - Family History Mother Hx Family Cardiac Disorders: Yes (Heart disease, [place], [place]) Hx Family Cancer: Yes Hx Family Endocrine Disorder: Yes (DM) Internal Medicine - H&P: Meds Cetirizine HCl [Zyrtec] 10 mg PO AD 03/08/17 [History] Citalopram Hydrobromide [Celexa] 40 mg PO DAILY 03/08/17 [History] Doxycycline 100 mg PO BID 03/08/17 [History] Dronabinol [Marinol] 2.5 mg PO BID 03/08/17 [History] Efavirenz/Emtricitab/Tenofovir [Atripla Tablet] 1 tab PO DAILY 03/08/17 [History ] Gabapentin [Neurontin] 800 mg PO QID 03/08/17 [History] Glycopyrrolate [Robinul] 1 mg PO BID 03/08/17 [History] HydrOXYzine Pamoate [Vistaril] 50 mg PO BID 03/08/17 [History] Pnv with Ca,No.72/Iron/FA [Pnv Plus Multivit Tab] 1 tab PO DAILY [History] Pregabalin [Lyrica] 150 mg PO BID 03/08/17 [History] Benzoyl Peroxide 1 appl TP DAILY 03/27/17 [History] Ciclopirox 1 appl TP DAILY 03/27/17 [History] Divalproex (12 HR) [Depakote (12 HR)] 500 mg PO HS 03/27/17 [History] Meloxicam 15 mg PO DAILY 04/10/17 [History] Cetirizine HCl/Pseudoephedrine [Cetirizine-Pse ER 5-120 mg Tab] 1 each PO DAILY 07/19/17 [History] EPINEPHrine [Epipen] 0.3 mg IM ONCE PRN 07/19/17 [History] Fexofenadine HCl 180 mg PO AD 07/19/17 [History] Ranitidine HCl [Zantac] 300 mg PO DAILY 07/19/17 [History] Sulfamethoxazole/Trimeth DS [Bactrim DS] 1 each PO BID #20 tablet 07/24/17 [Rx] Penicillin VK [Pencillin VK] 500 mg PO TID 07/31/17 [History] 3 Allergy/AdvReac Type Severity Reaction Status Date / Time Cefaclor [From [facility]] Allergy Hives Verified 07/31/17 15:03 All Systems PM: A 10-system review of systems was performed and is negative for pertinent findings except as documented above in the HPI. Review of systems: ROS 14 point review of systems reviewed as best as possible given presentation. Pertinent positive or negative as per HPI or otherwise reviewed as negative - Constitutional Vitals: Temp Pulse Resp BP Pulse Ox 98.1 F 93 14 104/68 100 07/31/17 20:28 07/31/17 20:28 07/31/17 20:28 07/31/17 20:28 07/31/17 20:28 Exam: General - AAO x 3 Psych - Appropriate affect/speech. No agitation Eyes - YENIFER. Eye lids intact. No scleral icterus Neuro - No gross peripheral or central neuro deficits with intact CN 2-12 exam Heart - Sinus. RRR. S1 and S2 present. No added HS/murmurs appreciated. No elevated JVD appreciated. Lung - Adequate air entry b/l, No crackles/wheezes appreciated GI - epigastric abdominal pain tender to palpation, no guarding or rigidity. No hepatosplenomegaly/ascites. BS+ - No CVA/suprapubic tenderness or palpable bladder distension Skin - abdominal rash noted MSK - Joints with normal ROM. No joint swellings Internal Med - H&P Results - Labs CBC & Chem 7: 07/31/17 15:50 07/31/17 15:50
[2017-07-31] MEDS ORDERED: Naloxone 0.4 MG/ML INJ IVP PRN (22:10)
[2017-07-31] MEDS: 0.9 % Sodium Chloride 1,000 ML IVC SCH (22:28)
[2017-07-31] MEDS: *HR* Heparin 5,000 UNIT/ML VIAL SQ SCH (22:28)
[2017-07-31] MEDS: *HR* HYDROmorphone (PF) 1 MG/ML SYRINGE IVP PRN (22:28)
[2017-07-31] MEDS: Divalproex (12 HR) 500 MG TABLET PO SCH (22:28)
[2017-07-31] MEDS: Ondansetron 4 MG/2 ML VIAL IVP PRN (22:28)
[2017-08-01] MEDS ORDERED: *HR* OxyCODONE/APAP 10/325 TABLET PO ONE (00:13)
[2017-08-01] MEDS ORDERED: *HR* OxyCODONE Immed Rel 5 MG TABLET PO ONE (00:51)
[2017-08-01] MEDS: EFAVIRENZ/EMTRICITAB/TENOFOVIR 1 EACH TABLET PO SCH ×2 (00:58→20:22)
[2017-08-01] MEDS: *HR* HYDROmorphone (PF) 1 MG/ML SYRINGE IVP PRN ×5 (02:14→21:41)
[2017-08-01] MEDS: *HR* Promethazine 25 MG/ML VIAL IVP PRN ×2 (02:20→21:40)
[2017-08-01] MEDS ORDERED: Piperacillin/Tazobactam 3.375 GM in D5% in Water (Mini-Bag+) 100 ML IVPB SCH (04:00)
[2017-08-01] MEDS: 0.9 % Sodium Chloride 1,000 ML IVC SCH (06:09)
[2017-08-01] MEDS: Pantoprazole 40 MG VIAL IVP SCH (06:10)
[2017-08-01] MEDS: *HR* Heparin 5,000 UNIT/ML VIAL SQ SCH ×3 (06:10→20:22)
[2017-08-01 06:16] LABS: Eosinophils % 0.2 %; Lymphocytes % 4.7 %; Mean Platelet Volume 9.4 fL (9.4-12.4); Monocytes % 8.2 %
[2017-08-01 06:18] LABS: Basophils # 0.1 K/mcL (0.0-0.2); Basophils % 0.4 %; Eosinophils # 0.1 K/mcL (0.0-0.6); Hematocrit 33.6 % (37.5-50.1); Hemoglobin 11.2 g/dL (12.9-16.9); Immature Granulocytes % 2.2 % (0-4); Lymphocytes # 1.2 K/mcL (0.6-4.6); Mean Corpuscular HGB Conc 33.3 g/dL (31.6-35.5); Mean Corpuscular Volume 102.1 fL (83.0-100.0); Platelet Count 340 K/mcL (140-400); Red Blood Count 3.29 M/mcL (4.19-5.50); Red Cell Distribution Width 15.6 % (11.5-14.5); Segmented Neutrophils % 84.3 %
[2017-08-01 06:25] LABS: Albumin 2.2 g/dL (3.5-5.0); Albumin/Globulin Ratio 0.5 (1.1-2.2); Bilirubin,Direct 0.1 mg/dL (0.0-0.5); Bilirubin,Indirect 0.2 mg/dL (0.0-1.2); Bilirubin,Total 0.3 mg/dL (0.2-1.2); Calcium 8.6 mg/dL (8.6-10.8); Chol/HDL Ratio 7.6 (0-4.9); Globulin 4.6 g/dL (2.4-3.5); Potassium 3.1 mEq/L (3.5-4.5); Total Protein 6.8 g/dL (6.0-8.3)
[2017-08-01 06:37] LABS: Platelet Estimate Normal (Normal)
[2017-08-01] MEDS: Gabapentin 400 MG CAPSULE PO SCH ×4 (08:02→20:22)
[2017-08-01] MEDS: Ondansetron 4 MG/2 ML VIAL IVP PRN ×2 (08:05→17:14)
[2017-08-01] MEDS ORDERED: Pregabalin 75 MG CAPSULE PO SCH (09:00)
[2017-08-01] MEDS ORDERED: *HR* HYDROmorphone (PF) 1 MG/ML SYRINGE IVP ONE (09:17)
--- NOTE | 2017-08-01 09:52 | Internal Med Progress Note ---
<Nilton Darby - Last Filed: 08/01/17 17:00> Date of Encounter: 08/01/17 Time of Encounter: 09:50 - Assessment and plan (1) Pancreatitis Current Visit: Yes Status: Acute Assessment and plan: Patient presented with abdominal pain, abdominal distension since Monday. Lipase >3000, Amylase >800. CT of the abdomen demonstrates pancreatic enlargement with surrounding fat stranding and swelling of the duodenum. - RUQ US does not demonstrate stones but does have sludge. - Patient denies hx of pancreatitis but does believe his symptoms are related to his recent renal stenting. - Denies hx of gallstones, alcohol use, previous pancreatitis episodes or significant family hx of pancreatitis - Patient has been taking his antiviral for HIV since 2008 without pancreatitis which is a potential complication of this medication. Plan: - Continue IV rehydration - Pain control - Continue Cipro and Flagyl - electrolyte replacement - monitor abdominal exam. - Keep NPO - Surgery involved and recommendations appreciated. Qualifiers: Chronicity: acute Pancreatitis type: unspecified pancreatitis type Acute pancreatitis complication: no infection or necrosis Qualified Code(s): K85.90 - Acute pancreatitis without necrosis or infection, unspecified (2) Hypokalemia Current Visit: Yes Status: Acute Assessment and plan: Potassium 3.1 likely secondary to Pancreatitis, denies vomiting or diarrhea Plan: - IV 40meq replacement of K+ - recheck with am labs. (3) History of stent insertion of renal artery Current Visit: Yes Status: Acute Assessment and plan: Stent seen on imaging in the right ureter, patient having adequate output without burning with urination or flank pain. - Stable (4) TESSIE (acute kidney injury) Current Visit: No Status: Acute Assessment and plan: Likely secondary to Pancreatitis, Patient was admitted with nephrolithiasis at the begining of the month. Prior he had a GFR > 40 in February Plan: - Continue IV rehydration - monitor with AM labs Avoid nephrotoxic medications and renally dose antibiotics. (5) HIV (human immunodeficiency virus infection) Current Visit: Yes Status: Chronic Assessment and plan: Stable. - Continue Antiviral (6) SIRS (systemic inflammatory response syndrome) Current Visit: Yes Status: Acute Assessment and plan: Empiric antibiotics, supportive care, further management pending hospital course - Subjective Interval history: Mr. Muñoz was seen and evaluated at bedside this morning. He is awake alert and interactive. He complains of abdominal pain and discomfort that is similar to when he was admitted. He has not eaten, denies fevers, chills, diaphoresis, diarrhea or vomiting. He is communicating well without other complaint. - Constitutional Vitals: Temp Pulse Resp BP Pulse Ox 97.9 F 94 18 127/80 100 08/01/17 07:10 08/01/17 07:10 08/01/17 07:10 08/01/17 07:10 08/01/17 07:10 Exam: General: Patient alert, awake, oriented 3, interactive, in no acute distress HEENT: Normocephalic, atraumatic, pupils equal reactive to light, nasal cavity patent and open septum median position, oral mucosa moist, uvula midline, neck supple trachea midline no palpable lymphadenopathy, no thyromegaly. Chest: Symmetric bilateral correlating with respiratory effort, effort nonlabored. Cardiac: Regular rate and rhythm, positive S1 and S2. no bruits appreciated bilateral carotids, Radial pulses 2+ bilateral, posterior tibial and dorsal pedal pulses 2+ bilateral. Respiratory: Clear to auscultation all lung [place] Abdomen: Soft, mild tenderness to palpation. positive bowel sounds, no palpable masses appreciated on examination Extremities: Symmetric bilateral, bilateral lower extremities without erythema or edema patient moving all 4 extremities spontaneously. Neurologic: No focal deficits appreciated on examination. Face symmetric, muscle strength symmetric bilateral upper and lower extremities. Internal Medicine: Result - Labs CBC & Chem 7: 08/01/17 05:48 08/01/17 05:48 Labs: Short CBC 08/01/17 Range/Units 05:48 WBC 24.9 H (4.3-11.1) K/mcL Hgb 11.2 L (12.9-16.9) g/dL Hct 33.6 L (37.5-50.1) % Plt Count 340 (140-400) K/mcL Neutrophils # 21.0 H (1.6-8.9) K/mcL BMP 08/01/17 05:48 Sodium 141 Potassium 3.1 L Chloride 121 H Carbon Dioxide 12 L BUN 34 H Creatinine 2.76 H Glucose 105 H Calcium 8.6 Liver Function 08/01/17 Range/Units 05:48 Total Bilirubin 0.3 (0.2-1.2) mg/dL Direct Bilirubin 0.1 (0.0-0.5) mg/dL AST 18 (5-34) Units/L ALT 25 (0-55) Units/L Alkaline Phosphatase 150 H (38-126) Units/L Albumin 2.2 L (3.5-5.0) g/dL - Impressions Impressions Abdomen Ultrasound 07/31/17 22:13 IMPRESSION: Gallbladder sludge. Small amount of fluid in the anterior pararenal space. D/ / Alena Casillas Cha, MD / Alena Casillas Cha, MD Interpreting Provider: Alena Casillas Cha, MD Abdomen CT 08/01/17 08:40 IMPRESSION: New small amount of perihepatic ascites with inflammatory changes surrounding the pancreas suspicious for acute pancreatitis. Correlation with amylase and lipase is recommended. Acute bowel inflammation is considered less likely No abscess collection or stenosis is identified within the upper abdomen. The lower abdomen is not imaged Bilateral renal calculi with presence of right ureteral stent. No urinary obstruction is identified No gross evidence for duodenal perforation. Distended gallbladder not significantly changed D/ / Kel Schmid MD / Kel Schmid MD Interpreting Provider: Kel Schmid MD Consult Discharge Plan - Plan Referrals: Robert Meier MD [Partnered Physician] - (Patient will need a hospital f/ u after discharge. His prior appt. was cancelled due to being an inpatient. Thank you.) Ozzie Fall MD [Primary Care Provider] - <Frankie Salgado H - Last Filed: 08/01/17 17:01> Date of Encounter: 08/01/17 - Constitutional Vitals: Temp Pulse Resp BP Pulse Ox 98.4 F 93 15 116/73 99 08/01/17 14:30 08/01/17 14:30 08/01/17 14:30 08/01/17 14:30 08/01/17 14:30 Internal Medicine: Result - Labs CBC & Chem 7: 08/01/17 05:48 08/01/17 05:48 Labs: Short CBC 08/01/17 Range/Units 05:48 WBC 24.9 H (4.3-11.1) K/mcL Hgb 11.2 L (12.9-16.9) g/dL Hct 33.6 L (37.5-50.1) % Plt Count 340 (140-400) K/mcL Neutrophils # 21.0 H (1.6-8.9) K/mcL BMP 08/01/17 05:48 Sodium 141 Potassium 3.1 L Chloride 121 H Carbon Dioxide 12 L BUN 34 H Creatinine 2.76 H Glucose 105 H Calcium 8.6 Liver Function 08/01/17 Range/Units 05:48 Total Bilirubin 0.3 (0.2-1.2) mg/dL Direct Bilirubin 0.1 (0.0-0.5) mg/dL AST 18 (5-34) Units/L ALT 25 (0-55) Units/L Alkaline Phosphatase 150 H (38-126) Units/L Albumin 2.2 L (3.5-5.0) g/dL - Impressions Impressions Abdomen Ultrasound 07/31/17 22:13 IMPRESSION: Gallbladder sludge. Small amount of fluid in the anterior pararenal space. D/ / Alena Casillas Cha, MD / Alena Casillas Cha, MD Interpreting Provider: Alena Casillas Cha, MD Abdomen CT 08/01/17 08:40 IMPRESSION: New small amount of perihepatic ascites with inflammatory changes surrounding the pancreas suspicious for acute pancreatitis. Correlation with amylase and lipase is recommended. Acute colonic bowel inflammation is considered less likely. No abscess collection or pseudocyst is identified within the upper abdomen. The lower abdomen is not imaged. Bilateral renal calculi with presence of right ureteral stent. No urinary obstruction is identified. No gross evidence for duodenal perforation. Distended gallbladder is not significantly changed. D/ / 08/01/2017 10:06:32 Kel Schmid MD / [email or web address] Interpreting Provider: Kel Schmid MD Scrotum Ultrasound 08/01/17 12:00 IMPRESSION: 1. 2.9 cm x 2.4 cm x 0.8 cm hypervascular, hypoechoic lesion subjacent to the skin at the area of clinical concern in the scrotum. Considerations include phlegmon, a drained abscess, or an inflamed epidermal inclusion cyst. 2. Normal sonographic appearance of the testes and epididymides without findings of torsion or epididymitis. D/ / Pablito Stevens MD / Pablito Stevens MD Interpreting Provider: Pablito Stevens MD - Attending Attestation May discontinue antibiotics if no infection/perforation is suspected I examined this patient and my medical decision-making was reviewed with the Resident Physician. I agree with the documented findings, disposition and treatment plan as described except to the extent set forth below.
[2017-08-01] MEDS: MetroNIDAZOLE 500 MG/100 ML 500 MG/100 ML BAG IVPB SCH ×2 (09:56→17:16)
--- NOTE | 2017-08-01 11:15 | General Surgery Consult Note ---
Date of Encounter: 08/01/17 Time of Encounter: 08:00 Assessment and Plan (1) Kidney calculus Current Visit: No Status: Chronic (2) TESSIE (acute kidney injury) Current Visit: No Status: Acute (3) HIV (human immunodeficiency virus infection) Current Visit: Yes Status: Chronic continue home po meds (4) Pancreatitis Current Visit: Yes Status: Acute continue IVF hydration repeat CT done with po contrast to rule out duodenal perforation no pseudocyst or abscess seen elevated wbc continue abx prn pain control gi/dvt prophylaxis have ordered CMV IgG/Igm serial abdominal exam no surgical intervention required trend amylase/lipase, currently decreasing Qualifiers: Chronicity: acute Pancreatitis type: unspecified pancreatitis type Acute pancreatitis complication: no infection or necrosis Qualified Code(s): K85.90 - Acute pancreatitis without necrosis or infection, unspecified (5) Leukocytosis Current Visit: Yes Status: Acute continue abx, trend wbc Qualifiers: Leukocytosis type: unspecified Qualified Code(s): D72.829 - Elevated white blood cell count, unspecified History of Present Illness Consult date: 08/01/17 Reason for consult: abdominal pain History of present illness: Patient is a 31 yo C.M with HIV complains of epigastric abdominal pain, nausea and emesis, and diarrhea. He states Monday evening out of the blue he began having nausea and emesis. This was followed shortly by epigastric stabbing and sharp abdominal pain which radiates to his midabdomen. He also had diarrhea starting around the same time. He continues to have severe epigastric pain. He presented to the ED and a CT scan without contrast was done which showed pancreatic inflammation and duodenal inflammation as well as a likely fluid collection near pancreas. Patient has a history of renal stones and recently 1-2 weeks ago had a right renal stent placed. He has TESSIE due to this. Past Med Surg Social Fam HX - Past Medical History Source: patient Medical history: GERD, HIV/AIDS (HIV), kidney stones, renal disease, other ( hidradenitis) Psychiatric history: anxiety, depression - Past Surgical History Surgical History: other (renal stents x 3, nephrostomy tube, testicular torsion fixation 2007) - Social History Smoking Status: Current every day smoker Packs per day: 1 Smokeless Tobacco Status: No Alcohol use: rarely Drug use: none - Family History Mother Hx Family Cardiac Disorders: Yes (Heart disease, Strokes, ID) Hx Family Cancer: Yes Hx Family Endocrine Disorder: Yes (DM) Medications and Allergies Cetirizine HCl [Zyrtec] 10 mg PO AD 03/08/17 [History] Citalopram Hydrobromide [Celexa] 40 mg PO DAILY 03/08/17 [History] Doxycycline 100 mg PO BID 03/08/17 [History] Dronabinol [Marinol] 2.5 mg PO BID 03/08/17 [History] Efavirenz/Emtricitab/Tenofovir [Atripla Tablet] 1 tab PO DAILY 03/08/17 [History ] Gabapentin [Neurontin] 800 mg PO QID 03/08/17 [History] Glycopyrrolate [Robinul] 1 mg PO BID 03/08/17 [History] HydrOXYzine Pamoate [Vistaril] 50 mg PO BID 03/08/17 [History] Pnv with Ca,No.72/Iron/FA [Pnv Plus Multivit Tab] 1 tab PO DAILY [History] Benzoyl Peroxide 1 appl TP DAILY 03/27/17 [History] Ciclopirox 1 appl TP DAILY 03/27/17 [History] Divalproex (12 HR) [Depakote (12 HR)] 500 mg PO HS 03/27/17 [History] Meloxicam 15 mg PO DAILY 04/10/17 [History] Cetirizine HCl/Pseudoephedrine [Cetirizine-Pse ER 5-120 mg Tab] 1 each PO DAILY 07/19/17 [History] EPINEPHrine [Epipen] 0.3 mg IM ONCE PRN 07/19/17 [History] Fexofenadine HCl 180 mg PO AD 07/19/17 [History] Ranitidine HCl [Zantac] 300 mg PO DAILY 07/19/17 [History] Sulfamethoxazole/Trimeth DS [Bactrim DS] 1 each PO BID #20 tablet 07/24/17 [Rx] Penicillin VK [Pencillin VK] 500 mg PO TID 07/31/17 [History] 3 Allergy/AdvReac Type Severity Reaction Status Date / Time Cefaclor [From [facility]] Allergy Hives Verified 07/31/17 15:03 Review of Systems All systems PM: reviewed and no additional remarkable complaints except as stated All systems PM: A 10-system review of systems was performed and is negative for pertinent findings except as documented above in the HPI. General Surgery Exam Initial Vital Signs Temp Pulse Resp BP Pulse Ox 97.6 F 85 16 123/84 100 07/31/17 14:58 07/31/17 14:58 07/31/17 14:58 07/31/17 14:58 07/31/17 14:58 - General physical appearance well developed, well nourished, moderate distress, moderate pain - Eyes PERRL, normal ocular movement - ENT normal mucosa - Neck trachea midline - Respiratory normal expansion - Cardiovascular Cardiovascular exam: Present: RRR - Abdomen Abdomen general surgery: Present: soft, tender (diffusely), guarding (voluntary guarding). Absent: rebound, rigid Abdominal Tenderness: Present: diffusely - Integumentary Integumentary general surgery: Present: warm and dry, no abnormal pigmentation - Neurologic Present: CN 2-12 grossly intact - Musculoskeletal Present: normal gait, normal posture - Psychiatric Psychiatric general surgery: Present: A&Ox3 Exam Initial Vital Signs Temp Pulse Resp BP Pulse Ox 97.6 F 85 16 123/84 100 07/31/17 14:58 07/31/17 14:58 07/31/17 14:58 07/31/17 14:58 07/31/17 14:58 Results - Labs 08/01/17 05:48 08/01/17 05:48 Abnormal lab results WBC 24.9 K/mcL (4.3-11.1) H 08/01/17 05:48 RBC 3.29 M/mcL (4.19-5.50) L 08/01/17 05:48 Hgb 11.2 g/dL (12.9-16.9) L 08/01/17 05:48 Hct 33.6 % (37.5-50.1) L 08/01/17 05:48 MCV 102.1 fL (83.0-100.0) H 08/01/17 05:48 MCH 34.0 pg (28.0-33.3) H 08/01/17 05:48 RDW 15.6 % (11.5-14.5) H 08/01/17 05:48 Neutrophils # 21.0 K/mcL (1.6-8.9) H 08/01/17 05:48 Monocytes # 2.0 K/mcL (0.0-1.3) H 08/01/17 05:48 Potassium 3.1 mEq/L (3.5-4.5) L 08/01/17 05:48 Chloride 121 mEq/L (98-109) H 08/01/17 05:48 Carbon Dioxide 12 mEq/L (19-29) L 08/01/17 05:48 BUN 34 mg/dL (8-26) H 08/01/17 05:48 Creatinine 2.76 mg/dL (0.72-1.25) H 08/01/17 05:48 Est GFR ( Amer) 32 (> 60) L 08/01/17 05:48 Est GFR (Non-Af Amer) 27 (> 60) L 08/01/17 05:48 Glucose 105 mg/dL (70-99) H 08/01/17 05:48 POC Glucose 106 (58-89) H 08/01/17 10:40 Alkaline Phosphatase 150 Units/L (38-126) H 08/01/17 05:48 C-Reactive Protein 18 mg/L (Less than 5) H 07/31/17 16:44 Albumin 2.2 g/dL (3.5-5.0) L 08/01/17 05:48 Globulin 4.6 g/dL (2.4-3.5) H 08/01/17 05:48 Albumin/Globulin Ratio 0.5 (1.1-2.2) L 08/01/17 05:48 Triglycerides 229 mg/dL (< 150) H 08/01/17 05:48 VLDL Cholesterol, Calc 46 mg/dL (< 31) H 08/01/17 05:48 HDL Cholesterol 20 mg/dL (40-59) L 08/01/17 05:48 Cholesterol/HDL Ratio 7.6 (0-4.9) H 08/01/17 05:48 Amylase 805 Units/L (25-125) H 08/01/17 05:48 Lipase 3842 Units/L (8-78) H 08/01/17 05:48 Urine Protein >=300 mg/dL (Neg-Trace) H 07/31/17 15:09 Urine Glucose (UA) 250 mg/dL (Normal) H 07/31/17 15:09 Urine Ketones Trace mg/dL (Negative) H 07/31/17 15:09 Urine Blood Moderate (Negative) H 07/31/17 15:09 Ur Leukocyte Esterase Moderate (Negative) H 07/31/17 15:09 Urine Microscopic RBC 15-30 per hpf (0-3) H 07/31/17 15:09 Urine Microscopic WBC 15-30 per hpf (0-3) H 07/31/17 15:09 Ur Squamous Epith Cells Many per lpf (None-Few) H 07/31/17 15:09 Ur Culture Indicated? YES (NO) A 07/31/17 15:09 Diabetes panel 08/01/17 Range/Units 05:48 Sodium 141 (136-145) mEq/L Potassium 3.1 L (3.5-4.5) mEq/L Chloride 121 H (98-109) mEq/L Carbon Dioxide 12 L (19-29) mEq/L BUN 34 H (8-26) mg/dL Creatinine 2.76 H (0.72-1.25) mg/dL Glucose 105 H (70-99) mg/dL Calcium 8.6 (8.6-10.8) mg/dL AST 18 (5-34) Units/L ALT 25 (0-55) Units/L Alkaline Phosphatase 150 H (38-126) Units/L Albumin 2.2 L (3.5-5.0) g/dL Triglycerides 229 H (< 150) mg/dL HDL Cholesterol 20 L (40-59) mg/dL Calcium panel 08/01/17 Range/Units 05:48 Calcium 8.6 (8.6-10.8) mg/dL Albumin 2.2 L (3.5-5.0) g/dL Pituitary panel 08/01/17 Range/Units 05:48 Sodium 141 (136-145) mEq/L Potassium 3.1 L (3.5-4.5) mEq/L Chloride 121 H (98-109) mEq/L Carbon Dioxide 12 L (19-29) mEq/L BUN 34 H (8-26) mg/dL Creatinine 2.76 H (0.72-1.25) mg/dL Glucose 105 H (70-99) mg/dL Calcium 8.6 (8.6-10.8) mg/dL Adrenal panel 08/01/17 Range/Units 05:48 Sodium 141 (136-145) mEq/L Potassium 3.1 L (3.5-4.5) mEq/L Chloride 121 H (98-109) mEq/L Carbon Dioxide 12 L (19-29) mEq/L BUN 34 H (8-26) mg/dL Creatinine 2.76 H (0.72-1.25) mg/dL Glucose 105 H (70-99) mg/dL Calcium 8.6 (8.6-10.8) mg/dL Total Bilirubin 0.3 (0.2-1.2) mg/dL AST 18 (5-34) Units/L ALT 25 (0-55) Units/L Alkaline Phosphatase 150 H (38-126) Units/L Albumin 2.2 L (3.5-5.0) g/dL All other labs normal. - Imaging CT scan - abdomen: report reviewed, image reviewed CT scan - pelvis: report reviewed, image reviewed Consult Discharge Plan - Plan Referrals: Ozzie Fall MD [Primary Care Provider] -
[2017-08-01] MEDS: Nicotine 21 MG PATCH.TD24 TD SCH (14:36)
[2017-08-01] MEDS ORDERED: Potassium Chloride 20 MEQ, Lidocaine 1% 2 ML in D5% in Water 250 ML IVPB ONE (16:50)
[2017-08-01] MEDS: Divalproex (12 HR) 500 MG TABLET PO SCH (20:22)
[2017-08-02] MEDS: MetroNIDAZOLE 500 MG/100 ML 500 MG/100 ML BAG IVPB SCH ×2 (01:43→09:12)
[2017-08-02] MEDS: *HR* HYDROmorphone (PF) 1 MG/ML SYRINGE IVP PRN ×6 (01:44→23:17)
[2017-08-02] MEDS: *HR* Heparin 5,000 UNIT/ML VIAL SQ SCH ×3 (05:25→22:08)
[2017-08-02] MEDS: Pantoprazole 40 MG VIAL IVP SCH (05:25)
[2017-08-02] MEDS: *HR* Promethazine 25 MG/ML VIAL IVP PRN ×3 (06:24→23:15)
[2017-08-02 08:00] LABS: Alanine Aminotransferase 15 Units/L (0-55); Albumin/Globulin Ratio 0.4 (1.1-2.2); Alkaline Phosphatase 119 Units/L (38-126); Aspartate Amino Transferase 18 Units/L (5-34); BUN/Creatinine Ratio 12 (6-26); Bilirubin,Direct 0.1 mg/dL (0.0-0.5); Bilirubin,Indirect 0.1 mg/dL (0.0-1.2); Blood Urea Nitrogen 27 mg/dL (8-26); Calcium 7.8 mg/dL (8.6-10.8); Chloride 124 mEq/L (98-109); Globulin 3.6 g/dL (2.4-3.5); Glucose 89 mg/dL (70-99); Magnesium 1.1 mg/dL (1.6-2.6); Osmolality,Calculated 293 (280-300); Potassium 2.7 mEq/L (3.5-4.5); Sodium 139 mEq/L (136-145); eGFR For African Americans 40 (> 60); eGFR For Non-African Americans 33 (> 60)
[2017-08-02 08:24] LABS: Albumin 1.6 g/dL (3.5-5.0); Bilirubin,Total < 0.2 mg/dL (0.2-1.2); Total Protein 5.2 g/dL (6.0-8.3)
[2017-08-02 08:33] LABS: Carbon Dioxide 10 mEq/L (19-29)
[2017-08-02 08:36] LABS: Basophils % 0.1 %; Eosinophils # 0.2 K/mcL (0.0-0.6); Eosinophils % 0.7 %; Hematocrit 24.5 % (37.5-50.1); Immature Granulocytes % 1.5 % (0-4); Lymphocytes # 1.2 K/mcL (0.6-4.6); Lymphocytes % 5.8 %; Mean Corpuscular HGB Conc 33.5 g/dL (31.6-35.5); Mean Corpuscular Hemoglobin 33.9 pg (28.0-33.3); Mean Corpuscular Volume 101.2 fL (83.0-100.0); Mean Platelet Volume 9.7 fL (9.4-12.4); Monocytes # 1.8 K/mcL (0.0-1.3); Monocytes % 8.5 %; Neutrophils # 17.1 K/mcL (1.6-8.9); Platelet Count 237 K/mcL (140-400); Red Blood Count 2.42 M/mcL (4.19-5.50); Red Cell Distribution Width 15.8 % (11.5-14.5); Segmented Neutrophils % 83.4 %
[2017-08-02 08:40] LABS: Hemoglobin 8.2 g/dL (12.9-16.9)
[2017-08-02] MEDS: Gabapentin 400 MG CAPSULE PO SCH ×4 (09:12→20:19)
[2017-08-02] MEDS: Nicotine 21 MG PATCH.TD24 TD SCH (09:35)
--- NOTE | 2017-08-02 10:43 | Internal Med Progress Note ---
<Nilton Darby - Last Filed: 08/02/17 10:50> Date of Encounter: 08/02/17 Time of Encounter: 10:41 - Assessment and plan (1) Pancreatitis Current Visit: Yes Status: Acute Assessment and plan: Patient presented with abdominal pain, abdominal distension since Monday. Lipase >3000, Amylase >800. CT of the abdomen demonstrates pancreatic enlargement with surrounding fat stranding and swelling of the duodenum. - RUQ US does not demonstrate stones but does have sludge. - Patient denies hx of pancreatitis but does believe his symptoms are related to his recent renal stenting. - Denies hx of gallstones, alcohol use, previous pancreatitis episodes or significant family hx of pancreatitis - Patient has been taking his antiviral for HIV since 2008 without pancreatitis which is a potential complication of this medication. 08/02: Patient states the pain is the same as the day prior. Lipase trending down, patient sitting up in bed which is improvement from yesterday. Plan: - Continue IV rehydration - Pain control - Continue Cipro and Flagyl - electrolyte replacement - monitor abdominal exam. - Keep NPO - Surgery involved and recommendations appreciated. Qualifiers: Chronicity: acute Pancreatitis type: unspecified pancreatitis type Acute pancreatitis complication: no infection or necrosis Qualified Code(s): K85.90 - Acute pancreatitis without necrosis or infection, unspecified (2) Hypokalemia Current Visit: Yes Status: Acute Assessment and plan: Potassium is 2.7 down from 3.1 yesterday after lunch light replacement. His deficiency is likely secondary to third spacing with pancreatitis. Review of patient's records demonstrates that he was hypokalemia on his last admission but he was also sick and underwent renal stenting. Plan: - Potassium chloride elixir 40meq BID x2 doses, goal potassium Level 4.0 - recheck with am labs. (3) History of stent insertion of renal artery Current Visit: Yes Status: Acute Assessment and plan: Stent seen on imaging in the right ureter, patient having adequate output without burning with urination or flank pain. - Stable (4) TESSIE (acute kidney injury) Current Visit: No Status: Acute Assessment and plan: Likely secondary to Pancreatitis, Patient was admitted with nephrolithiasis at the begining of the month. Prior he had a GFR > 40 in February - Creatinine and GFR are improving. Plan: - Continue IV rehydration - monitor with AM labs Avoid nephrotoxic medications and renally dose antibiotics. (5) HIV (human immunodeficiency virus infection) Current Visit: Yes Status: Chronic Assessment and plan: Stable. - Continue Antiretro-viral (6) SIRS (systemic inflammatory response syndrome) Current Visit: Yes Status: Acute Assessment and plan: Empiric antibiotics, supportive care, further management pending hospital course (7) Hypomagnesemia Current Visit: Yes Status: Acute Assessment and plan: Magnesium level I.1 in the setting of acute pancreatitis. Plan: - 4 g IV magnesium will recheck a.m. labs and replace as necessary. - Will likely require by mouth magnesium replacements after levels have improved. (8) Macrocytic anemia Current Visit: Yes Status: Acute Assessment and plan: Patient has macrocytic anemia in the setting of HIV and chronic antiretroviral therapy. He also has acute pancreatitis and third spacing. - Hemoglobin is 8.2 down from 11.2 the day prior. No signs of bleeding, also likely dilutional with high volume fluid replacement - We will monitor hemoglobin level and replace if hemoglobin falls below 7.0 (9) Leukocytosis Current Visit: Yes Status: Acute Assessment and plan: Leukocytosis is improving at 20.6 likely reactive in the setting of acute pancreatitis. At this timeof infection have been identified but will continue to monitor for pseudocyst formation or other concerning findings. Qualifiers: Qualified Code(s): D72.829 - Elevated white blood cell count, unspecified (10) Metabolic acidosis Current Visit: Yes Status: Acute Assessment and plan: Patient has a bicarbonate level of 10 and a chloride level of 124 in the sitting acute pancreatitis. Plan: - Switch normal saline to lactated Ringer's - Monitor acidosis, may require bicarbonate (11) DVT prophylaxis Current Visit: No Status: Acute Assessment and plan: Subcutaneous heparin every 8 hours - Subjective Interval history: Mr. Muñoz was seen and evaluated at bedside this morning. He is awake alert and interactive. He complains of abdominal pain and discomfort that has not changed much since yesterday. Though he is sitting up in bed without any obvious signs of discomfort. He denies any nausea or vomiting or diarrhea but continues to have pain which she has describes as coming in waves. He said one of the pain waves last evening woke him up. He says his pain is well controlled when he is on pain medications and just had dilaudid. He denies any bruising, new rashes or other concerning signs. He still does not have an appetite. - Constitutional Vitals: Temp Pulse Resp BP Pulse Ox 98.5 F 103 14 100/59 98 08/02/17 07:14 08/02/17 07:14 08/02/17 07:14 08/02/17 07:14 08/02/17 07:14 Exam: General: Patient alert, awake, oriented 3, interactive, in no acute distress HEENT: Normocephalic, atraumatic, pupils equal reactive to light, nasal cavity patent and open septum median position, oral mucosa moist, uvula midline, neck supple trachea midline no palpable lymphadenopathy, no thyromegaly. Chest: Symmetric bilateral correlating with respiratory effort, effort nonlabored. Cardiac: Regular rate and rhythm, positive S1 and S2. no bruits appreciated bilateral carotids, Radial pulses 2+ bilateral, posterior tibial and dorsal pedal pulses 2+ bilateral. Respiratory: Clear to auscultation all lung robledo Abdomen: Soft, mild tenderness to palpation. positive bowel sounds, no palpable masses appreciated on examination Extremities: Symmetric bilateral, bilateral lower extremities without erythema or edema patient moving all 4 extremities spontaneously. Neurologic: No focal deficits appreciated on examination. Face symmetric, muscle strength symmetric bilateral upper and lower extremities. Internal Medicine: Result - Labs CBC & Chem 7: 08/02/17 07:22 08/02/17 07:22 Labs: Short CBC 08/02/17 Range/Units 07:22 WBC 20.6 H (4.3-11.1) K/mcL Hgb 8.2 L D (12.9-16.9) g/dL Hct 24.5 L (37.5-50.1) % Plt Count 237 (140-400) K/mcL Neutrophils # 17.1 H (1.6-8.9) K/mcL BMP 08/02/17 07:22 Sodium 139 Potassium 2.7 L Chloride 124 H Carbon Dioxide 10 L* BUN 27 H Creatinine 2.28 H Glucose 89 Calcium 7.8 L Liver Function 08/02/17 Range/Units 07:22 Total Bilirubin < 0.2 L (0.2-1.2) mg/dL Direct Bilirubin 0.1 (0.0-0.5) mg/dL AST 18 (5-34) Units/L ALT 15 (0-55) Units/L Alkaline Phosphatase 119 (38-126) Units/L Albumin 1.6 L D (3.5-5.0) g/dL - Impressions Impressions Abdomen CT 08/01/17 08:40 IMPRESSION: New small amount of perihepatic ascites with inflammatory changes surrounding the pancreas suspicious for acute pancreatitis. Correlation with amylase and lipase is recommended. Acute colonic bowel inflammation is considered less likely. No abscess collection or pseudocyst is identified within the upper abdomen. The lower abdomen is not imaged. Bilateral renal calculi with presence of right ureteral stent. No urinary obstruction is identified. No gross evidence for duodenal perforation. Distended gallbladder is not significantly changed. D/ / 08/01/2017 10:06:32 Kel Schmid MD / [email or web address] Interpreting Provider: Kel Schmid MD Scrotum Ultrasound 08/01/17 12:00 IMPRESSION: 1. 2.9 cm x 2.4 cm x 0.8 cm hypervascular, hypoechoic lesion subjacent to the skin at the area of clinical concern in the scrotum. Considerations include phlegmon, a drained abscess, or an inflamed epidermal inclusion cyst. 2. Normal sonographic appearance of the testes and epididymides without findings of torsion or epididymitis. D/ / Pablito Stevens MD / Pablito Stevens MD Interpreting Provider: Pablito Stevens MD Consult Discharge Plan - Plan Referrals: Robert Meier MD [Partnered Physician] - (Patient will need a hospital f/ u after discharge. His prior appt. was cancelled due to being an inpatient. Thank you.) Ozzie Fall MD [Primary Care Provider] - <Frankie Salgado - Last Filed: 08/02/17 14:26> Date of Encounter: 08/02/17 - Constitutional Vitals: Temp Pulse Resp BP Pulse Ox 98.7 F 108 20 94/57 97 08/02/17 11:46 08/02/17 11:46 08/02/17 11:46 08/02/17 11:46 08/02/17 11:46 Internal Medicine: Result - Labs CBC & Chem 7: 08/02/17 07:22 08/02/17 07:22 Labs: Short CBC 08/02/17 Range/Units 07:22 WBC 20.6 H (4.3-11.1) K/mcL Hgb 8.2 L D (12.9-16.9) g/dL Hct 24.5 L (37.5-50.1) % Plt Count 237 (140-400) K/mcL Neutrophils # 17.1 H (1.6-8.9) K/mcL BMP 08/02/17 07:22 Sodium 139 Potassium 2.7 L Chloride 124 H Carbon Dioxide 10 L* BUN 27 H Creatinine 2.28 H Glucose 89 Calcium 7.8 L Liver Function 08/02/17 Range/Units 07:22 Total Bilirubin < 0.2 L (0.2-1.2) mg/dL Direct Bilirubin 0.1 (0.0-0.5) mg/dL AST 18 (5-34) Units/L ALT 15 (0-55) Units/L Alkaline Phosphatase 119 (38-126) Units/L Albumin 1.6 L D (3.5-5.0) g/dL - Impressions Impressions Abdomen CT 08/01/17 08:40 IMPRESSION: New small amount of perihepatic ascites with inflammatory changes surrounding the pancreas suspicious for acute pancreatitis. Correlation with amylase and lipase is recommended. Acute colonic bowel inflammation is considered less likely. No abscess collection or pseudocyst is identified within the upper abdomen. The lower abdomen is not imaged. Bilateral renal calculi with presence of right ureteral stent. No urinary obstruction is identified. No gross evidence for duodenal perforation. Distended gallbladder is not significantly changed. D/ / 08/01/2017 10:06:32 Kel Schmid MD / [email or web address] Interpreting Provider: Kel Schmid MD - Attending Attestation Acute metabolic acidosis, start bicarbonate May try clear liquids and decrease IV fluids if tolerating clears Replete potassium I examined this patient and my medical decision-making was reviewed with the Resident Physician. I agree with the documented findings, disposition and treatment plan as described except to the extent set forth below.
[2017-08-02] MEDS: Potassium Chloride Elixir 20 MEQ/15 ML UDC PO SCH ×2 (10:59→20:22)
[2017-08-02] MEDS: Magnesium Sulfate 2 GM in D5% in Water 100 ML IVPB SCH ×2 (11:00→13:00)
[2017-08-02] MEDS: Ringers Solution, Lactated 1,000 ML IVC SCH ×2 (14:46→20:15)
[2017-08-02 15:18] LABS: Lipase 1440 Units/L (8-78)
--- NOTE | 2017-08-02 15:33 | General Surgery Progress Note ---
<Geneva Monzon Tania - Last Filed: 08/02/17 15:31> Date of Encounter: 08/02/17 Time of Encounter: 15:31 - Assessment and Plan (1) Pancreatitis Current Visit: Yes Status: Acute Improving. States he has an appetite and pain is improving. No evidence of duodenal perf, cyst, or pseudocyst noted on previous CT. Continue supportive care and discomfort management. Surgery will follow from a distance at this time. Pt will need follow-up imaging to r/o pseudocyst formation. Timing to be determined. CMV IgGg/IGM pending Qualifiers: Chronicity: acute Pancreatitis type: unspecified pancreatitis type Acute pancreatitis complication: no infection or necrosis Qualified Code(s): K85.90 - Acute pancreatitis without necrosis or infection, unspecified (2) TESSIE (acute kidney injury) Current Visit: Yes Status: Acute Management per medicine (3) Leukocytosis Current Visit: Yes Status: Acute Improving. Continue to monitor. Qualifiers: Leukocytosis type: unspecified Qualified Code(s): D72.829 - Elevated white blood cell count, unspecified Subjective Patient reports: no new complaints, feels better, still having pain, pain is less, tolerating liquids well, voiding w/o difficulty, flatus, no bowel movement , afebrile Objective Vital Signs - Last 8 Hours Temp Pulse Resp BP Pulse Ox 08/02/17 15:10 98.4 F 100 18 138/80 99 08/02/17 11:46 98.7 F 108 20 94/57 97 Intake and Output 08/01/17 08/02/17 08/02/17 23:59 07:59 15:59 Intake Total 2300 / 2300 2099 / 2099 2492 / 2492 Output Total 450 / 450 1375 / 1375 1250 / 1250 Balance 1850 / 1850 725 / 725 1242 / 1242 Intake: IV Fluids 2300 / 2300 2099 / 2100 2492 / 2492 KCl 10 MEQ In 0.9 % 1999 730 / 730 Sodium Chloride 1,000 ML @ 200 mls/hr IVC .Q5H2M [facility] Rx#:[id number] Cipro Premix 400 MG/200 200 / 200 200 / 200 ML 400 mg In 200 ml @ 200 mls/hr IVPB Q12HR [facility] Rx #:[id number] Magnesium Sulfate 2 GM In 100 / 100 Dextrose 5% 100 ML @ 100 mls/hr IVPB Q1H [facility] Rx#: [id number] Flagyl Premix 500 MG/100 100 / 100 100 / 100 ML 500 mg In 100 ml @ 100 mls/hr IVPB Q8HR [facility] Rx# :[id number] Oral 0 / 0 0 / 0 Output: Urine 450 / 450 1375 / 1375 1250 / 1250 Other: Meal Dinner NPO Breakfast Percent of Meal Consumed 0% Weight 72.393 kg Blood Glucose* 107 89 92 Patient Weight 08/02/17 23:59 Weight 72.393 kg - General physical appearance no distress, chronically ill - ENT atraumatic, normocephalic - Neck Neck exam: trachea midline - Respiratory normal expansion, normal respiratory effort, clear to auscultation - Cardiovascular Cardiovascular exam: Present: RRR, no murmurs/rubs/gallops - Abdomen Abdomen: Present: bowel sounds present, soft, tender Hernia: none - Integumentary no rash - Neurologic CN 2-12 grossly intact - Musculoskeletal normal gait, normal posture - Psychiatric oriented to time, oriented to person, oriented to place, speech is normal, memory intact - Labs 08/02/17 07:22 08/02/17 07:22 Diabetes panel 08/02/17 Range/Units 07:22 Sodium 139 (136-145) mEq/L Potassium 2.7 L (3.5-4.5) mEq/L Chloride 124 H (98-109) mEq/L Carbon Dioxide 10 L* (19-29) mEq/L BUN 27 H (8-26) mg/dL Creatinine 2.28 H (0.72-1.25) mg/dL Glucose 89 (70-99) mg/dL Calcium 7.8 L (8.6-10.8) mg/dL AST 18 (5-34) Units/L ALT 15 (0-55) Units/L Alkaline Phosphatase 119 (38-126) Units/L Albumin 1.6 L D (3.5-5.0) g/dL Calcium panel 08/02/17 Range/Units 07:22 Calcium 7.8 L (8.6-10.8) mg/dL Albumin 1.6 L D (3.5-5.0) g/dL Pituitary panel 08/02/17 Range/Units 07:22 Sodium 139 (136-145) mEq/L Potassium 2.7 L (3.5-4.5) mEq/L Chloride 124 H (98-109) mEq/L Carbon Dioxide 10 L* (19-29) mEq/L BUN 27 H (8-26) mg/dL Creatinine 2.28 H (0.72-1.25) mg/dL Glucose 89 (70-99) mg/dL Calcium 7.8 L (8.6-10.8) mg/dL Adrenal panel 08/02/17 Range/Units 07:22 Sodium 139 (136-145) mEq/L Potassium 2.7 L (3.5-4.5) mEq/L Chloride 124 H (98-109) mEq/L Carbon Dioxide 10 L* (19-29) mEq/L BUN 27 H (8-26) mg/dL Creatinine 2.28 H (0.72-1.25) mg/dL Glucose 89 (70-99) mg/dL Calcium 7.8 L (8.6-10.8) mg/dL Total Bilirubin < 0.2 L (0.2-1.2) mg/dL AST 18 (5-34) Units/L ALT 15 (0-55) Units/L Alkaline Phosphatase 119 (38-126) Units/L Albumin 1.6 L D (3.5-5.0) g/dL Consult Discharge Plan - Plan Referrals: Robert Meier MD [Partnered Physician] - (Patient will need a hospital f/ u after discharge. His prior appt. was cancelled due to being an inpatient. Thank you.) Ozzie Fall MD [Primary Care Provider] - <Tiki Valle - Last Filed: 08/03/17 08:31> Date of Encounter: 08/02/17 - Assessment and Plan (1) Kidney calculus Current Visit: No Status: Chronic (2) TESSIE (acute kidney injury) Current Visit: No Status: Acute (3) HIV (human immunodeficiency virus infection) Current Visit: Yes Status: Chronic (4) Pancreatitis Current Visit: Yes Status: Acute advance diet slowly following amylase and lipase prn pain control patient improving Qualifiers: Chronicity: acute Pancreatitis type: unspecified pancreatitis type Acute pancreatitis complication: no infection or necrosis Qualified Code(s): K85.90 - Acute pancreatitis without necrosis or infection, unspecified (5) Leukocytosis Current Visit: Yes Status: Acute Qualifiers: Leukocytosis type: unspecified Qualified Code(s): D72.829 - Elevated white blood cell count, unspecified Subjective Patient reports: feels better, still having pain, pain is less, tolerating liquids well Objective Vital Signs - Last 8 Hours Temp Pulse Resp BP Pulse Ox 08/03/17 07:50 99.7 F H 106 14 101/69 94 08/03/17 04:45 98.1 F 68 14 125/54 97 Intake and Output 08/02/17 08/03/17 08/03/17 23:59 07:59 15:59 Intake Total 1120 / 1120 1120 / 1120 Output Total 350 / 350 Balance 770 / 770 1120 / 1120 Intake: IV Fluids 1000 / 1000 1000 / 1000 Lactated Ringers 1,000 ML 1000 / 1000 1000 / 1000 @ 200 mls/hr IVC .Q5H [facility] Rx#:[id number] Oral 120 / 120 120 / 120 Output: Urine 350 / 350 Other: # Voids 1 # Bowel Movements 2 Weight 72.257 kg Blood Glucose* 87 Patient Weight 08/03/17 23:59 Weight 72.257 kg - General physical appearance no distress - Eyes PERRL, normal ocular movement - ENT normal mucosa, normocephalic - Neck Neck exam: trachea midline - Respiratory normal expansion, clear to auscultation - Cardiovascular Cardiovascular exam: Present: RRR - Abdomen Abdomen: Present: bowel sounds present, soft, tender. Absent: guarding, rebound Abdominal Tenderness: epigastic, diffusely - Integumentary no rash - Neurologic CN 2-12 grossly intact - Musculoskeletal normal posture - Psychiatric oriented to time, oriented to person, oriented to place, speech is normal, memory intact - Labs 08/03/17 06:06 08/03/17 06:06 Diabetes panel 08/02/17 08/03/17 Range/Units 07:22 06:06 Sodium 139 137 (136-145) mEq/L Potassium 2.7 L 2.6 L (3.5-4.5) mEq/L Chloride 124 H 120 H (98-109) mEq/L Carbon Dioxide 10 L* 12 L (19-29) mEq/L BUN 27 H 16 D (8-26) mg/dL Creatinine 2.28 H 2.09 H (0.72-1.25) mg/dL Glucose 89 84 (70-99) mg/dL Calcium 7.8 L 8.3 L (8.6-10.8) mg/dL AST 18 16 (5-34) Units/L ALT 15 17 (0-55) Units/L Alkaline Phosphatase 119 119 (38-126) Units/L Albumin 1.6 L D 1.7 L (3.5-5.0) g/dL Calcium panel 08/02/17 08/03/17 Range/Units 07:22 06:06 Calcium 7.8 L 8.3 L (8.6-10.8) mg/dL Albumin 1.6 L D 1.7 L (3.5-5.0) g/dL Pituitary panel 08/02/17 08/03/17 Range/Units 07:22 06:06 Sodium 139 137 (136-145) mEq/L Potassium 2.7 L 2.6 L (3.5-4.5) mEq/L Chloride 124 H 120 H (98-109) mEq/L Carbon Dioxide 10 L* 12 L (19-29) mEq/L BUN 27 H 16 D (8-26) mg/dL Creatinine 2.28 H 2.09 H (0.72-1.25) mg/dL Glucose 89 84 (70-99) mg/dL Calcium 7.8 L 8.3 L (8.6-10.8) mg/dL Adrenal panel 08/02/17 08/03/17 Range/Units 07:22 06:06 Sodium 139 137 (136-145) mEq/L Potassium 2.7 L 2.6 L (3.5-4.5) mEq/L Chloride 124 H 120 H (98-109) mEq/L Carbon Dioxide 10 L* 12 L (19-29) mEq/L BUN 27 H 16 D (8-26) mg/dL Creatinine 2.28 H 2.09 H (0.72-1.25) mg/dL Glucose 89 84 (70-99) mg/dL Calcium 7.8 L 8.3 L (8.6-10.8) mg/dL Total Bilirubin < 0.2 L 0.3 (0.2-1.2) mg/dL AST 18 16 (5-34) Units/L ALT 15 17 (0-55) Units/L Alkaline Phosphatase 119 119 (38-126) Units/L Albumin 1.6 L D 1.7 L (3.5-5.0) g/dL - Attending Attestation I have personally performed a face to face evaluation on this patient. I have reviewed and agree with the care plan. History and Exam by me shows:
[2017-08-02] MEDS: EFAVIRENZ/EMTRICITAB/TENOFOVIR 1 EACH TABLET PO SCH (20:18)
[2017-08-02] MEDS: Divalproex (12 HR) 500 MG TABLET PO SCH (20:19)
[2017-08-03] MEDS: *HR* HYDROmorphone (PF) 1 MG/ML SYRINGE IVP PRN ×7 (01:54→21:14)
[2017-08-03] MEDS: Ondansetron 4 MG/2 ML VIAL IVP PRN ×2 (01:54→18:10)
[2017-08-03] MEDS: Ringers Solution, Lactated 1,000 ML IVC SCH ×5 (04:10→18:03)
[2017-08-03] MEDS: *HR* Heparin 5,000 UNIT/ML VIAL SQ SCH ×3 (04:19→20:14)
[2017-08-03] MEDS: *HR* Promethazine 25 MG/ML VIAL IVP PRN ×3 (05:35→21:14)
[2017-08-03 06:22] LABS: Basophils % 0.1 %; Eosinophils # 0.3 K/mcL (0.0-0.6); Eosinophils % 1.5 %; Hematocrit 23.1 % (37.5-50.1); Immature Granulocytes % 2.2 % (0-4); Lymphocytes # 1.5 K/mcL (0.6-4.6); Lymphocytes % 6.7 %; Mean Corpuscular HGB Conc 34.6 g/dL (31.6-35.5); Mean Corpuscular Hemoglobin 34.6 pg (28.0-33.3); Mean Platelet Volume 9.4 fL (9.4-12.4); Monocytes # 1.7 K/mcL (0.0-1.3); Monocytes % 7.8 %; Neutrophils # 18.2 K/mcL (1.6-8.9); Platelet Count 216 K/mcL (140-400); Red Blood Count 2.31 M/mcL (4.19-5.50); Red Cell Distribution Width 15.9 % (11.5-14.5); Segmented Neutrophils % 81.7 %
[2017-08-03 06:33] LABS: Albumin/Globulin Ratio 0.4 (1.1-2.2); Bilirubin,Direct 0.2 mg/dL (0.0-0.5); Bilirubin,Indirect 0.1 mg/dL (0.0-1.2); Bilirubin,Total 0.3 mg/dL (0.2-1.2); Calcium 8.3 mg/dL (8.6-10.8); Globulin 3.9 g/dL (2.4-3.5); Potassium 2.6 mEq/L (3.5-4.5); Total Protein 5.6 g/dL (6.0-8.3)
[2017-08-03 06:38] LABS: Albumin 1.7 g/dL (3.5-5.0)
[2017-08-03] MEDS ORDERED: Potassium Chloride Elixir 20 MEQ/15 ML UDC PO ONE ×2 (07:01→14:04)
[2017-08-03] MEDS: Nicotine 21 MG PATCH.TD24 TD SCH (08:07)
[2017-08-03] MEDS: Pantoprazole 40 MG VIAL IVP SCH (08:07)
[2017-08-03] MEDS: Gabapentin 400 MG CAPSULE PO SCH ×4 (08:07→20:13)
--- NOTE | 2017-08-03 08:43 | Internal Med Progress Note ---
<Nilton Darby - Last Filed: 08/03/17 15:06> Date of Encounter: 08/03/17 Time of Encounter: 08:43 - Assessment and plan (1) Pancreatitis Current Visit: Yes Status: Acute Assessment and plan: Patient presented with abdominal pain, abdominal distension since Monday. Lipase >3000, Amylase >800. CT of the abdomen demonstrates pancreatic enlargement with surrounding fat stranding and swelling of the duodenum. - RUQ US does not demonstrate stones but does have sludge. - Patient denies hx of pancreatitis but does believe his symptoms are related to his recent renal stenting. - Denies hx of gallstones, alcohol use, previous pancreatitis episodes or significant family hx of pancreatitis - Patient has been taking his antiviral for HIV since 2008 without pancreatitis which is a potential complication of this medication. 08/02: Patient states the pain is the same as the day prior. Lipase trending down, patient sitting up in bed which is improvement from yesterday. 08/03: Lipase <1000, symptom resolving. Patient is improving clinically, Plan: - Continue IV rehydration - Pain control - electrolyte replacement - monitor abdominal exam. - Start liquids as tolerated - Surgery involved and recommendations appreciated. Qualifiers: Chronicity: acute Pancreatitis type: unspecified pancreatitis type Acute pancreatitis complication: no infection or necrosis Qualified Code(s): K85.90 - Acute pancreatitis without necrosis or infection, unspecified (2) Hypokalemia Current Visit: Yes Status: Acute Assessment and plan: Potassium is 2.6 this morning. His deficiency is likely secondary to third spacing with pancreatitis. Review of patient's records demonstrates that he was hypokalemia on his last admission but he was also sick and underwent renal stenting. Plan: - Potassium chloride elixir 40meq BID, goal potassium Level 4.0 - recheck with am labs. (3) History of stent insertion of renal artery Current Visit: Yes Status: Acute Assessment and plan: Stent seen on imaging in the right ureter, patient having adequate output without burning with urination or flank pain. - Stable (4) TESSIE (acute kidney injury) Current Visit: No Status: Acute Assessment and plan: Likely secondary to Pancreatitis, Patient was admitted with nephrolithiasis at the begining of the month. Prior he had a GFR > 40 in February - Creatinine and GFR are improving. Plan: - Continue IV rehydration - monitor with AM labs Avoid nephrotoxic medications and renally dose antibiotics. (5) HIV (human immunodeficiency virus infection) Current Visit: Yes Status: Chronic Assessment and plan: Stable. - Continue Antiretro-viral (6) SIRS (systemic inflammatory response syndrome) Current Visit: Yes Status: Acute Assessment and plan: - Improving Empiric antibiotics, supportive care, further management pending hospital course (7) Hypomagnesemia Current Visit: Yes Status: Acute Assessment and plan: Magnesium level I.1 in the setting of acute pancreatitis. - Received 4 g IV magnesium yesterday. Plan: -Oral magnesium 400 mg twice a day - Repeat magnesium level in a.m. (8) Macrocytic anemia Current Visit: Yes Status: Acute Assessment and plan: Patient has macrocytic anemia in the setting of HIV and chronic antiretroviral therapy. He also has acute pancreatitis and third spacing. - Hemoglobin is 8.0 down from 11.2. No signs of bleeding, also likely dilutional with high volume fluid replacement - We will monitor hemoglobin level and replace if hemoglobin falls below 7.0 (9) Leukocytosis Current Visit: Yes Status: Acute Assessment and plan: Leukocytosis in the setting of pancreatitis. Patient is improving clinically. No other signs of infection at this time. Qualifiers: Qualified Code(s): D72.829 - Elevated white blood cell count, unspecified (10) Metabolic acidosis Current Visit: Yes Status: Acute Assessment and plan: Patient has a bicarbonate level of 10 and a chloride level of 124 in the sitting acute pancreatitis. - She has been receiving bicarbonate since yesterday with improvement to a bicarbonate of 12 Plan: - Continue lactated Ringer's - Increased dose of bicarbonate to 1300 3 times a day (11) DVT prophylaxis Current Visit: No Status: Acute Assessment and plan: Subcutaneous heparin every 8 hours - Subjective Interval history: Mr. Muñoz was seen and evaluated at bedside this morning. He is awake alert and interactive. He states that his abdominal pain is improved significantly compared to yesterday and that he is able to sit up and lay down without discomfort. She wants to try oral intake. He has not a bowel movement but continues to have gas. He said his pain is well controlled at this time. He has no other concerns or complaints. - Constitutional Vitals: Temp Pulse Resp BP Pulse Ox 99.7 F H 106 14 101/69 94 08/03/17 07:50 08/03/17 07:50 08/03/17 07:50 08/03/17 07:50 08/03/17 07:50 Exam: General: Patient alert, awake, oriented 3, interactive, in no acute distress HEENT: Normocephalic, atraumatic, pupils equal reactive to light, nasal cavity patent and open septum median position, oral mucosa moist, uvula midline, neck supple trachea midline no palpable lymphadenopathy, no thyromegaly. Chest: Symmetric bilateral correlating with respiratory effort, effort nonlabored. Cardiac: Regular rate and rhythm, positive S1 and S2. no bruits appreciated bilateral carotids, Radial pulses 2+ bilateral, posterior tibial and dorsal pedal pulses 2+ bilateral. Respiratory: Clear to auscultation all lung robledo Abdomen: Soft, mild tenderness to palpation positive bowel sounds, no palpable masses appreciated on examination Extremities: Symmetric bilateral, bilateral lower extremities without erythema or edema patient moving all 4 extremities spontaneously. Neurologic: No focal deficits appreciated on examination. Face symmetric, muscle strength symmetric bilateral upper and lower extremities. Internal Medicine: Result - Labs CBC & Chem 7: 08/03/17 06:06 08/03/17 11:28 Labs: Short CBC 08/03/17 Range/Units 06:06 WBC 22.3 H (4.3-11.1) K/mcL Hgb 8.0 L (12.9-16.9) g/dL Hct 23.1 L (37.5-50.1) % Plt Count 216 (140-400) K/mcL Neutrophils # 18.2 H (1.6-8.9) K/mcL BMP 08/03/17 06:06 Sodium 137 Potassium 2.6 L Chloride 120 H Carbon Dioxide 12 L BUN 16 D Creatinine 2.09 H Glucose 84 Calcium 8.3 L Liver Function 08/03/17 Range/Units 06:06 Total Bilirubin 0.3 (0.2-1.2) mg/dL Direct Bilirubin 0.2 (0.0-0.5) mg/dL AST 16 (5-34) Units/L ALT 17 (0-55) Units/L Alkaline Phosphatase 119 (38-126) Units/L Albumin 1.7 L (3.5-5.0) g/dL Consult Discharge Plan - Plan Referrals: Robert Meier MD [Partnered Physician] - (Patient will need a hospital f/ u after discharge. His prior appt. was cancelled due to being an inpatient. Thank you.) Ozzie Fall MD [Primary Care Provider] - <Frankie Salgado H - Last Filed: 08/03/17 15:35> Date of Encounter: 08/03/17 - Constitutional Vitals: Temp Pulse Resp BP Pulse Ox 98.7 F 108 17 131/71 96 08/03/17 14:49 08/03/17 14:49 08/03/17 14:49 08/03/17 14:49 08/03/17 14:49 Internal Medicine: Result - Labs CBC & Chem 7: 08/03/17 06:06 08/03/17 11:28 Labs: Short CBC 08/03/17 Range/Units 06:06 WBC 22.3 H (4.3-11.1) K/mcL Hgb 8.0 L (12.9-16.9) g/dL Hct 23.1 L (37.5-50.1) % Plt Count 216 (140-400) K/mcL Neutrophils # 18.2 H (1.6-8.9) K/mcL BMP 08/03/17 08/03/17 06:06 11:28 Sodium 137 137 Potassium 2.6 L 2.8 L Chloride 120 H 118 H Carbon Dioxide 12 L 13 L BUN 16 D 14 Creatinine 2.09 H 2.10 H Glucose 84 75 Calcium 8.3 L 8.4 L Liver Function 08/03/17 08/03/17 Range/Units 06:06 11:28 Total Bilirubin 0.3 0.2 (0.2-1.2) mg/dL Direct Bilirubin 0.2 (0.0-0.5) mg/dL AST 16 17 (5-34) Units/L ALT 17 16 (0-55) Units/L Alkaline Phosphatase 119 136 H (38-126) Units/L Albumin 1.7 L 1.7 L (3.5-5.0) g/dL - Attending Attestation Increased bicarbonate due to metabolic acidosis I examined this patient and my medical decision-making was reviewed with the Resident Physician. I agree with the documented findings, disposition and treatment plan as described except to the extent set forth below.
[2017-08-03 12:10] LABS: Albumin/Globulin Ratio 0.4 (1.1-2.2); Bilirubin,Total 0.2 mg/dL (0.2-1.2); Calcium 8.4 mg/dL (8.6-10.8); Globulin 4.2 g/dL (2.4-3.5); Potassium 2.8 mEq/L (3.5-4.5); Total Protein 5.9 g/dL (6.0-8.3)
[2017-08-03 12:11] LABS: Albumin 1.7 g/dL (3.5-5.0)
[2017-08-03 17:39] LABS: CMV Quant by PCR IU <227 IU/mL; CMV Quant by PCR Log IU <2.4 log IU/mL; CMV Quant by PCR copies <390 cpy/mL
[2017-08-03] MEDS: Magnesium Oxide 400 MG TABLET PO SCH (18:05)
[2017-08-03] MEDS ORDERED: Ringers Solution, Lactated 1,000 ML IVC SCH (18:45)
[2017-08-03] MEDS: Divalproex (12 HR) 500 MG TABLET PO SCH (20:13)
[2017-08-03] MEDS: EFAVIRENZ/EMTRICITAB/TENOFOVIR 1 EACH TABLET PO SCH (20:14)
[2017-08-03] MEDS ORDERED: Magnesium Oxide 400 MG TABLET PO SCH (21:00)
[2017-08-04] MEDS: *HR* HYDROmorphone (PF) 1 MG/ML SYRINGE IVP PRN ×8 (00:07→21:53)
[2017-08-04] MEDS: Magnesium Oxide 400 MG TABLET PO SCH ×2 (02:30→09:26)
[2017-08-04 05:58] LABS: Basophils % 0.2 %; Eosinophils % 1.8 %; Red Cell Distribution Width 16.4 % (11.5-14.5)
[2017-08-04 06:00] LABS: Basophils # 0.1 K/mcL (0.0-0.2); Eosinophils # 0.5 K/mcL (0.0-0.6); Hematocrit 22.1 % (37.5-50.1); Hemoglobin 7.7 g/dL (12.9-16.9); Immature Granulocytes % 2.5 % (0-4); Lymphocytes % 9.3 %; Mean Corpuscular HGB Conc 34.8 g/dL (31.6-35.5); Mean Corpuscular Hemoglobin 35.2 pg (28.0-33.3); Mean Corpuscular Volume 100.9 fL (83.0-100.0); Mean Platelet Volume 9.6 fL (9.4-12.4); Monocytes # 2.4 K/mcL (0.0-1.3); Monocytes % 8.6 %; Platelet Count 255 K/mcL (140-400); Red Blood Count 2.19 M/mcL (4.19-5.50); Segmented Neutrophils % 77.6 %
[2017-08-04 06:14] LABS: Albumin 1.8 g/dL (3.5-5.0); Albumin/Globulin Ratio 0.4 (1.1-2.2); Bilirubin,Total 0.3 mg/dL (0.2-1.2); Calcium 8.5 mg/dL (8.6-10.8); Globulin 4.4 g/dL (2.4-3.5); Magnesium 1.6 mg/dL (1.6-2.6); Phosphorous 1.8 mg/dL (2.3-4.7); Total Protein 6.2 g/dL (6.0-8.3)
[2017-08-04 06:16] LABS: Potassium 2.5 mEq/L (3.5-4.5)
[2017-08-04] MEDS: Pantoprazole 40 MG VIAL IVP SCH (06:18)
[2017-08-04] MEDS: *HR* Heparin 5,000 UNIT/ML VIAL SQ SCH ×3 (06:19→21:53)
[2017-08-04 06:21] LABS: Lymphocytes # 2.6 K/mcL (0.6-4.6); Neutrophils # 21.3 K/mcL (1.6-8.9)
[2017-08-04] MEDS ORDERED: Potassium Chloride Elixir 20 MEQ/15 ML UDC PO ONE ×2 (06:53→12:59)
[2017-08-04] MEDS ORDERED: Potassium Chloride 20 MEQ, Lidocaine 1% 2 ML in D5% in Water 250 ML IVPB ONE (06:54)
[2017-08-04 07:28] LABS: Platelet Estimate Normal (Normal)
[2017-08-04 08:36] LABS: CMV Quant by PCR Log copies <2.6 log cpy/mL
[2017-08-04] MEDS: Gabapentin 400 MG CAPSULE PO SCH ×4 (09:26→21:53)
[2017-08-04] MEDS: Nicotine 21 MG PATCH.TD24 TD SCH (09:26)
--- NOTE | 2017-08-04 10:36 | Internal Med Progress Note ---
<Nilton Darby - Last Filed: 08/04/17 10:34> Date of Encounter: 08/04/17 Time of Encounter: 10:34 - Assessment and plan (1) Pancreatitis Current Visit: Yes Status: Acute Assessment and plan: Patient presented with abdominal pain, abdominal distension since Monday. Lipase >3000, Amylase >800. CT of the abdomen demonstrates pancreatic enlargement with surrounding fat stranding and swelling of the duodenum. - RUQ US does not demonstrate stones but does have sludge. - Patient denies hx of pancreatitis but does believe his symptoms are related to his recent renal stenting. - Denies hx of gallstones, alcohol use, previous pancreatitis episodes or significant family hx of pancreatitis - Patient has been taking his antiviral for HIV since 2008 without pancreatitis which is a potential complication of this medication. 08/02: Patient states the pain is the same as the day prior. Lipase trending down, patient sitting up in bed which is improvement from yesterday. 08/03: Lipase <1000, symptom resolving. Patient is improving clinically 08/04: Lipase significantly improved below 300, patient is tolerating full liquids and sitting in bed without discomfort. He does continue to have hypokalemia which may be due to third spacing that should not be as significant. He is tolerating advancements in his diet. He has had a low- grade fever with a high of 100 but no new findings or change in abdominal pain. Will keep an eye on vitals and lab results with a low suspicion for evaluating for potential pancreatic abscess versus pseudocyst. Plan: - Continue IV rehydration - Pain control - electrolyte replacement - monitor abdominal exam. - Advance diet as tolerated - Surgery involved and recommendations appreciated. Qualifiers: Chronicity: acute Pancreatitis type: unspecified pancreatitis type Acute pancreatitis complication: no infection or necrosis Qualified Code(s): K85.90 - Acute pancreatitis without necrosis or infection, unspecified (2) Hypokalemia Current Visit: Yes Status: Acute Assessment and plan: Patient's potassium is 2.5 after significant replacement, patient denies diarrhea but does say he has increased urination, he has been receiving large volume fluid replacement. - Hypokalemia may be a combination of both pancreatitis and bicarbonate replacement Plan: - 40meq potassium elixir by mouth - 40meq potassium chloride IV - Repeat potassium level at noon - If no improvement then we will evaluate for potential renal losses. (3) History of stent insertion of renal artery Current Visit: Yes Status: Acute Assessment and plan: Stent seen on imaging in the right ureter, patient having adequate output without burning with urination or flank pain. - Stable (4) TESSIE (acute kidney injury) Current Visit: No Status: Acute Assessment and plan: Likely secondary to Pancreatitis, Patient was admitted with nephrolithiasis at the begining of the month. Prior he had a GFR > 40 in February - Creatinine and GFR are improving. Plan: - Continue IV rehydration - monitor with AM labs Avoid nephrotoxic medications and renally dose antibiotics. (5) HIV (human immunodeficiency virus infection) Current Visit: Yes Status: Chronic Assessment and plan: Stable. - Continue Antiretro-viral (6) SIRS (systemic inflammatory response syndrome) Current Visit: Yes Status: Acute Assessment and plan: - Improving Empiric antibiotics, supportive care, further management pending hospital course (7) Hypomagnesemia Current Visit: Yes Status: Acute Assessment and plan: Magnesium level I.6 today after replacement 2 days ago - Patient is asymptomatic and improving Plan: -Oral magnesium 400 mg twice a day (8) Macrocytic anemia Current Visit: Yes Status: Acute Assessment and plan: Patient has macrocytic anemia in the setting of HIV and chronic antiretroviral therapy. He also has acute pancreatitis and third spacing. - Hemoglobin is 7.7 down from 11.2. No signs of bleeding, also likely dilutional with high volume fluid replacement. - We will monitor hemoglobin level and replace if hemoglobin falls below 7.0 (9) Leukocytosis Current Visit: Yes Status: Acute Assessment and plan: Leukocytosis in the setting of pancreatitis. WBC count 27.4 which is slightly elevated from previously. Patient is improving clinically. No other signs of infection at this time. -We will keep low threshold for evaluation for pancreatic cyst versus pseudocyst or abscess or other signs of infection. Qualifiers: Qualified Code(s): D72.829 - Elevated white blood cell count, unspecified (10) Metabolic acidosis Current Visit: Yes Status: Acute Assessment and plan: Patient has a bicarbonate level of 10 and a chloride level of 124 in the sitting acute pancreatitis. - he has been receiving bicarbonate with improvement to a bicarbonate of 13 Plan: - Continue dose of bicarbonate to 1300 3 times a day (11) DVT prophylaxis Current Visit: No Status: Acute Assessment and plan: Subcutaneous heparin every 8 hours - Subjective Interval history: Mr. Muñoz was seen and evaluated at bedside this morning. He is awake alert and interactive. He says that his abdominal pain is improved significantly but he has continued to not feel the best. He has had a full liquid diet and plans to transition to solid foods at lunch and dinner. He denies any fevers chills sweating diaphoresis nausea vomiting, diarrhea or constipation. In discussion of his low grade fever he said that he has been wearing his fleece robe and his neighbor had the temperature turned up and he thinks that may be the cause of his elevated temperature as he is often feeling sick or had significant sweating. Otherwise he feels that he is improving. - Constitutional Vitals: Temp Pulse Resp BP Pulse Ox 99.3 F 109 16 123/72 97 08/04/17 07:57 08/04/17 07:57 08/04/17 07:57 08/04/17 07:57 08/04/17 07:57 Exam: General: Patient alert, awake, oriented 3, interactive, in no acute distress HEENT: Normocephalic, atraumatic, pupils equal reactive to light, nasal cavity patent and open septum median position, oral mucosa moist, uvula midline, neck supple trachea midline no palpable lymphadenopathy, no thyromegaly. Chest: Symmetric bilateral correlating with respiratory effort, effort nonlabored. Cardiac: Regular rate and rhythm, positive S1 and S2. no bruits appreciated bilateral carotids, Radial pulses 2+ bilateral, posterior tibial and dorsal pedal pulses 2+ bilateral. Respiratory: Clear to auscultation all lung robledo Abdomen: Soft, mild tenderness to palpation more so on the left abdomen compared to the right, positive bowel sounds, no palpable masses appreciated on examination Extremities: Symmetric bilateral, bilateral lower extremities without erythema or edema patient moving all 4 extremities spontaneously. Neurologic: No focal deficits appreciated on examination. Face symmetric, muscle strength symmetric bilateral upper and lower extremities. Internal Medicine: Result - Labs CBC & Chem 7: 08/04/17 05:43 08/04/17 05:43 Labs: Short CBC 08/04/17 Range/Units 05:43 WBC 27.4 H (4.3-11.1) K/mcL Hgb 7.7 L (12.9-16.9) g/dL Hct 22.1 L (37.5-50.1) % Plt Count 255 (140-400) K/mcL Neutrophils # 21.3 H (1.6-8.9) K/mcL BMP 08/03/17 08/04/17 11:28 05:43 Sodium 137 138 Potassium 2.8 L 2.5 L* Chloride 118 H 116 H Carbon Dioxide 13 L 13 L BUN 14 11 Creatinine 2.10 H 2.13 H Glucose 75 88 Calcium 8.4 L 8.5 L Liver Function 08/03/17 08/04/17 Range/Units 11:28 05:43 Total Bilirubin 0.2 0.3 (0.2-1.2) mg/dL AST 17 17 (5-34) Units/L ALT 16 13 (0-55) Units/L Alkaline Phosphatase 136 H 140 H (38-126) Units/L Albumin 1.7 L 1.8 L (3.5-5.0) g/dL - VTE Documentation of Mechanical Device: Graduated compression elastic hosiery Consult Discharge Plan - Plan Referrals: Robert Meier MD [Partnered Physician] - (Patient will need a hospital f/ u after discharge. His prior appt. was cancelled due to being an inpatient. Thank you.) Ozzie Fall MD [Primary Care Provider] - <Frankie Salgado H - Last Filed: 08/04/17 16:04> Date of Encounter: 08/04/17 - Constitutional Vitals: Temp Pulse Resp BP Pulse Ox 98.9 F 108 16 115/80 97 08/04/17 12:08 08/04/17 12:08 08/04/17 12:08 08/04/17 12:08 08/04/17 12:08 Internal Medicine: Result - Labs CBC & Chem 7: 08/04/17 05:43 08/04/17 12:19 Labs: Short CBC 08/04/17 Range/Units 05:43 WBC 27.4 H (4.3-11.1) K/mcL Hgb 7.7 L (12.9-16.9) g/dL Hct 22.1 L (37.5-50.1) % Plt Count 255 (140-400) K/mcL Neutrophils # 21.3 H (1.6-8.9) K/mcL BMP 08/04/17 08/04/17 05:43 12:19 Sodium 138 Potassium 2.5 L* 3.0 L Chloride 116 H Carbon Dioxide 13 L BUN 11 Creatinine 2.13 H Glucose 88 Calcium 8.5 L Liver Function 08/04/17 Range/Units 05:43 Total Bilirubin 0.3 (0.2-1.2) mg/dL AST 17 (5-34) Units/L ALT 13 (0-55) Units/L Alkaline Phosphatase 140 H (38-126) Units/L Albumin 1.8 L (3.5-5.0) g/dL - Impressions Impressions Abdomen/Pelvis CT 08/04/17 14:00 IMPRESSION: 1. No significant change in appearance of diffuse pancreatitis. No findings definitive for pancreatic hemorrhage. Evaluation for pancreatic necrosis is limited by lack of contrast administration. 2. Mildly dilated jejunal loops, likely reactive ileus. 3. Persistent though decreased trace free fluid now in the pelvis, likely improved reactive fluid. 4. New trace bilateral effusions. 5. Liquid stool throughout the colon, suggesting diarrhea. 6. Minimal new right hydronephrosis with unchanged appropriate positioning of a right ureteral stent. 7. Unchanged clustered calculi in the mid right ureter as well as unchanged nonobstructing calculi in both renal collecting systems. D/ / Pablito Stevens MD / Pablito Stevens MD Interpreting Provider: Pablito Stevesn MD - Attending Attestation acute pancreatitis, unknown etiology replete K consider repeating CT of the abdomen if not improving or if he continues to have fevers, may resume cipro and flagyl IV if infected pancreatic necrosis is suspected , no evidence of infection at the moment I examined this patient and my medical decision-making was reviewed with the Resident Physician. I agree with the documented findings, disposition and treatment plan as described except to the extent set forth below.
--- NOTE | 2017-08-04 15:31 | General Surgery Progress Note ---
<Hatillo,Maritza César - Last Filed: 08/04/17 15:33> Date of Encounter: 08/04/17 Time of Encounter: 15:15 - Assessment and Plan (1) Pancreatitis Current Visit: Yes Status: Acute Repeat CT today shows no development of pseudocyst at this time May continue diet as tolerated Supportive care IV fluids add IV antibiotics- Zosyn (renal dose per pharmacy) No surgical intervention indicated at this time Qualifiers: Chronicity: acute Pancreatitis type: unspecified pancreatitis type Acute pancreatitis complication: no infection or necrosis Qualified Code(s): K85.90 - Acute pancreatitis without necrosis or infection, unspecified (2) TESSIE (acute kidney injury) Current Visit: Yes Status: Acute 2.10>2.13 Management per medicine service Avoid nephrotoxic medications (3) Leukocytosis Current Visit: Yes Status: Acute WBC- 22.3>27.4 CT shows no development of pseudocyst at this time Add Zosyn (renal dosing per pharmacy) Repeat am labs Qualifiers: Leukocytosis type: unspecified Qualified Code(s): D72.829 - Elevated white blood cell count, unspecified Subjective Patient reports: feels better, still having pain, pain is less, tolerating a regular diet, voiding w/o difficulty, flatus, bowel movement, fever (Tmax 100.3) , other (headache today) Objective Vital Signs - Last 8 Hours Temp Pulse Resp BP Pulse Ox 08/04/17 12:08 98.9 F 108 16 115/80 97 08/04/17 07:57 99.3 F 109 16 123/72 97 Intake and Output 08/03/17 08/04/17 08/04/17 23:59 07:59 15:59 Intake Total 1360 / 1360 700 / 700 240 / 240 Output Total 0 / 0 0 / 0 Balance 1360 / 1360 700 / 700 240 / 240 Intake: IV Fluids 200 / 200 100 / 100 Lactated Ringers 1,000 ML 200 / 200 @ 200 mls/hr IVC .Q5H [facility] Rx#:[id number] Potassium Chloride 10 mEq 100 / 100 /100mL 10 meq In 100 ml @ 100 mls/hr IVPB Q1H [facility] Rx#:[id number] Oral 1160 / 1160 600 / 600 240 / 240 Output: Urine 0 / 0 0 / 0 Other: Meal Dinner Breakfast Percent of Meal Consumed 100% 100% # Voids 2 Weight 70.817 kg Blood Glucose* 122 107 Patient Weight 08/04/17 23:59 Weight 70.817 kg - General physical appearance well developed, well nourished, no distress - Eyes normal ocular movement - ENT normal mucosa, atraumatic, normocephalic - Neck Neck exam: trachea midline - Respiratory normal respiratory effort, clear to auscultation - Cardiovascular Cardiovascular exam: Present: tachycardia - Abdomen Abdomen: Present: bowel sounds present, soft, tender (improving) - Neurologic CN 2-12 grossly intact - Musculoskeletal normal gait, normal posture - Psychiatric oriented to time, oriented to person, oriented to place, speech is normal, memory intact - Labs 08/04/17 05:43 08/04/17 12:19 Diabetes panel 08/04/17 08/04/17 Range/Units 05:43 12:19 Sodium 138 (136-145) mEq/L Potassium 2.5 L* 3.0 L (3.5-4.5) mEq/L Chloride 116 H (98-109) mEq/L Carbon Dioxide 13 L (19-29) mEq/L BUN 11 (8-26) mg/dL Creatinine 2.13 H (0.72-1.25) mg/dL Glucose 88 (70-99) mg/dL Calcium 8.5 L (8.6-10.8) mg/dL AST 17 (5-34) Units/L ALT 13 (0-55) Units/L Alkaline Phosphatase 140 H (38-126) Units/L Albumin 1.8 L (3.5-5.0) g/dL Calcium panel 08/04/17 Range/Units 05:43 Calcium 8.5 L (8.6-10.8) mg/dL Phosphorus 1.8 L (2.3-4.7) mg/dL Albumin 1.8 L (3.5-5.0) g/dL Pituitary panel 08/04/17 08/04/17 Range/Units 05:43 12:19 Sodium 138 (136-145) mEq/L Potassium 2.5 L* 3.0 L (3.5-4.5) mEq/L Chloride 116 H (98-109) mEq/L Carbon Dioxide 13 L (19-29) mEq/L BUN 11 (8-26) mg/dL Creatinine 2.13 H (0.72-1.25) mg/dL Glucose 88 (70-99) mg/dL Calcium 8.5 L (8.6-10.8) mg/dL Adrenal panel 08/04/17 08/04/17 Range/Units 05:43 12:19 Sodium 138 (136-145) mEq/L Potassium 2.5 L* 3.0 L (3.5-4.5) mEq/L Chloride 116 H (98-109) mEq/L Carbon Dioxide 13 L (19-29) mEq/L BUN 11 (8-26) mg/dL Creatinine 2.13 H (0.72-1.25) mg/dL Glucose 88 (70-99) mg/dL Calcium 8.5 L (8.6-10.8) mg/dL Total Bilirubin 0.3 (0.2-1.2) mg/dL AST 17 (5-34) Units/L ALT 13 (0-55) Units/L Alkaline Phosphatase 140 H (38-126) Units/L Albumin 1.8 L (3.5-5.0) g/dL - VTE Documentation of Mechanical Device: Graduated compression elastic hosiery Consult Discharge Plan - Plan Referrals: Robert Meier MD [Partnered Physician] - (Patient will need a hospital f/ u after discharge. His prior appt. was cancelled due to being an inpatient. Thank you.) Ozzie Fall MD [Primary Care Provider] - - Attending Attestation I have personally performed a face to face evaluation on this patient. I have reviewed and agree with the care plan. History and Exam by me shows: <Tiki Valle - Last Filed: 08/07/17 14:49> Date of Encounter: 08/04/17 - Assessment and Plan (1) Kidney calculus Current Visit: No Status: Chronic patient being followed as outpatient by urology, with renal stent (2) TESSIE (acute kidney injury) Current Visit: No Status: Acute (3) HIV (human immunodeficiency virus infection) Current Visit: Yes Status: Chronic continue home meds (4) Pancreatitis Current Visit: Yes Status: Acute CT scan shows no changes, no pseudocyst of fluid collections, as is without contrast due to renal disease unable to rule out infection of pancreatitis but patient has essentially almost no abdominal pain Qualifiers: Chronicity: acute Pancreatitis type: other Acute pancreatitis complication: no infection or necrosis Qualified Code(s): K85.80 - Other acute pancreatitis without necrosis or infection (5) Leukocytosis Current Visit: Yes Status: Acute Qualifiers: Leukocytosis type: unspecified Qualified Code(s): D72.829 - Elevated white blood cell count, unspecified Subjective Patient reports: no new complaints, feels better, pain is less, tolerating a regular diet, voiding w/o difficulty, flatus, bowel movement Objective Vital Signs - Last 8 Hours Temp Pulse Resp BP Pulse Ox 08/07/17 11:33 98.4 F 104 14 100/63 93 08/07/17 07:02 98.9 F 106 18 103/67 98 Intake and Output 08/06/17 08/07/17 08/07/17 23:59 07:59 15:59 Intake Total 240 / 240 800 / 800 480 / 480 Output Total 1050 / 1050 400 / 400 0 / 0 Balance -810 / -810 400 / 400 480 / 480 Intake: Oral 240 / 240 800 / 800 480 / 480 Output: Urine 1050 / 1050 400 / 400 0 / 0 Other: Meal Dinner Percent of Meal Consumed 100% Weight 70.2 kg Blood Glucose* 153 88 112 Patient Weight 08/07/17 23:59 Weight 70.2 kg - General physical appearance well developed, well nourished, no distress - Eyes normal ocular movement - Respiratory clear to auscultation - Cardiovascular Cardiovascular exam: Present: tachycardia - Abdomen Abdomen: Present: bowel sounds present, soft, tender (improving, very minimal compared to presentation) - Integumentary no rash, no growths - Neurologic CN 2-12 grossly intact - Musculoskeletal normal posture - Psychiatric oriented to time, oriented to person, oriented to place, memory intact - Labs 08/07/17 04:53 08/07/17 08:24 Diabetes panel 08/07/17 08/07/17 Range/Units 04:53 08:24 Sodium 139 (136-145) mEq/L Potassium 2.5 L* 2.6 L (3.5-4.5) mEq/L Chloride 112 H (98-109) mEq/L Carbon Dioxide 18 L (19-29) mEq/L BUN 6 L (8-26) mg/dL Creatinine 2.47 H (0.72-1.25) mg/dL Glucose 91 (70-99) mg/dL Calcium 8.1 L (8.6-10.8) mg/dL AST 23 (5-34) Units/L ALT 18 (0-55) Units/L Alkaline Phosphatase 162 H (38-126) Units/L Albumin 1.6 L (3.5-5.0) g/dL Calcium panel 08/07/17 Range/Units 04:53 Calcium 8.1 L (8.6-10.8) mg/dL Albumin 1.6 L (3.5-5.0) g/dL Pituitary panel 08/07/17 08/07/17 Range/Units 04:53 08:24 Sodium 139 (136-145) mEq/L Potassium 2.5 L* 2.6 L (3.5-4.5) mEq/L Chloride 112 H (98-109) mEq/L Carbon Dioxide 18 L (19-29) mEq/L BUN 6 L (8-26) mg/dL Creatinine 2.47 H (0.72-1.25) mg/dL Glucose 91 (70-99) mg/dL Calcium 8.1 L (8.6-10.8) mg/dL Adrenal panel 08/07/17 08/07/17 Range/Units 04:53 08:24 Sodium 139 (136-145) mEq/L Potassium 2.5 L* 2.6 L (3.5-4.5) mEq/L Chloride 112 H (98-109) mEq/L Carbon Dioxide 18 L (19-29) mEq/L BUN 6 L (8-26) mg/dL Creatinine 2.47 H (0.72-1.25) mg/dL Glucose 91 (70-99) mg/dL Calcium 8.1 L (8.6-10.8) mg/dL Total Bilirubin 0.2 (0.2-1.2) mg/dL AST 23 (5-34) Units/L ALT 18 (0-55) Units/L Alkaline Phosphatase 162 H (38-126) Units/L Albumin 1.6 L (3.5-5.0) g/dL - Attending Attestation I have personally performed a face to face evaluation on this patient. I have reviewed and agree with the care plan. History and Exam by me shows:
[2017-08-04] MEDS: Piperacillin/Tazobactam 3.375 GM in D5% in Water (Mini-Bag+) 100 ML IVPB SCH (16:58)
[2017-08-04] MEDS: EFAVIRENZ/EMTRICITAB/TENOFOVIR 1 EACH TABLET PO SCH (21:53)
[2017-08-04] MEDS: Divalproex (12 HR) 500 MG TABLET PO SCH (21:53)
[2017-08-05] MEDS: Piperacillin/Tazobactam 3.375 GM in D5% in Water (Mini-Bag+) 100 ML IVPB SCH ×3 (00:22→16:12)
[2017-08-05] MEDS: hydrOXYzine pamoate 25 MG CAPSULE PO SCH ×3 (04:15→21:01)
[2017-08-05] MEDS: *HR* HYDROmorphone (PF) 1 MG/ML SYRINGE IVP PRN ×6 (04:26→21:31)
[2017-08-05 05:38] LABS: Basophils # 0.1 K/mcL (0.0-0.2); Basophils % 0.2 %; Eosinophils # 0.5 K/mcL (0.0-0.6); Eosinophils % 1.9 %; Hematocrit 23.1 % (37.5-50.1); Hemoglobin 7.7 g/dL (12.9-16.9); Lymphocytes # 2.4 K/mcL (0.6-4.6); Lymphocytes % 9.8 %; Mean Corpuscular HGB Conc 33.3 g/dL (31.6-35.5); Mean Corpuscular Hemoglobin 34.4 pg (28.0-33.3); Mean Corpuscular Volume 103.1 fL (83.0-100.0); Mean Platelet Volume 9.4 fL (9.4-12.4); Monocytes # 2.2 K/mcL (0.0-1.3); Monocytes % 9.3 %; Neutrophils # 18.1 K/mcL (1.6-8.9); Platelet Count 263 K/mcL (140-400); Red Blood Count 2.24 M/mcL (4.19-5.50); Red Cell Distribution Width 16.7 % (11.5-14.5); Segmented Neutrophils % 74.8 %
[2017-08-05 06:21] LABS: Bilirubin,Total 0.3 mg/dL (0.2-1.2); Calcium 8.5 mg/dL (8.6-10.8); Potassium 2.8 mEq/L (3.5-4.5); Total Protein 6.3 g/dL (6.0-8.3)
[2017-08-05] MEDS: *HR* Heparin 5,000 UNIT/ML VIAL SQ SCH ×3 (06:54→21:29)
[2017-08-05 07:32] LABS: Albumin/Globulin Ratio 0.5 (1.1-2.2); Globulin 4.3 g/dL (2.4-3.5)
[2017-08-05] MEDS: Magnesium Oxide 400 MG TABLET PO SCH (07:50)
[2017-08-05] MEDS: Gabapentin 400 MG CAPSULE PO SCH ×4 (07:51→21:01)
[2017-08-05] MEDS: Nicotine 21 MG PATCH.TD24 TD SCH (07:51)
--- NOTE | 2017-08-05 08:19 | Internal Med Progress Note ---
<Nilton Darby - Last Filed: 08/05/17 17:06> Date of Encounter: 08/05/17 Time of Encounter: 08:18 - Assessment and plan (1) Pancreatitis Current Visit: Yes Status: Acute Assessment and plan: Patient presented with abdominal pain, abdominal distension since Monday. Lipase >3000, Amylase >800. CT of the abdomen demonstrates pancreatic enlargement with surrounding fat stranding and swelling of the duodenum. - RUQ US does not demonstrate stones but does have sludge. - Patient denies hx of pancreatitis but does believe his symptoms are related to his recent renal stenting. - Denies hx of gallstones, alcohol use, previous pancreatitis episodes or significant family hx of pancreatitis - Patient has been taking his antiviral for HIV since 2008 without pancreatitis which is a potential complication of this medication. 08/02: Patient states the pain is the same as the day prior. Lipase trending down, patient sitting up in bed which is improvement from yesterday. 08/03: Lipase <1000, symptom resolving. Patient is improving clinically 08/04: Lipase significantly improved below 300, patient is tolerating full liquids and sitting in bed without discomfort. He does continue to have hypokalemia which may be due to third spacing that should not be as significant. He is tolerating advancements in his diet. He has had a low- grade fever with a high of 100 but no new findings or change in abdominal pain. Will keep an eye on vitals and lab results with a low suspicion for evaluating for potential pancreatic abscess versus pseudocyst. 08/05: Symptoms resolving, patient is tolerating oral intake. Plan: - electrolyte replacement - monitor abdominal exam. - Advance diet as tolerated - Surgery involved and recommendations appreciated. Qualifiers: Chronicity: acute Pancreatitis type: unspecified pancreatitis type Acute pancreatitis complication: no infection or necrosis Qualified Code(s): K85.90 - Acute pancreatitis without necrosis or infection, unspecified (2) Hypokalemia Current Visit: Yes Status: Acute Assessment and plan: Patient continues to have hypokalemia after significant electrolyte replacement. There is concern for possible renal loss such as RTA as the patient's pancreatitis has resolved but continues to have hypokalemia. Plan: - 40meq potassium chloride by mouth twice a day - Repeat potassium level at noon - Urinalysis with microscopy, 24 hour urine sodium and 24-hour urine potassium - Consult to nephrology, spoke with Dr. Bonilla regarding this patient. (3) History of stent insertion of renal artery Current Visit: Yes Status: Acute Assessment and plan: Stent seen on imaging in the right ureter, patient having adequate output without burning with urination or flank pain. - Stable (4) TESSIE (acute kidney injury) Current Visit: No Status: Acute Assessment and plan: Acute kidney injury on chronic kidney disease, significant history of obstructive uropathy. Likely secondary to Pancreatitis, Patient was admitted with nephrolithiasis at the begining of the month. Prior he had a GFR > 40 in February - Creatinine and GFR are improving. Plan: - Continue oral intake - monitor with AM labs Avoid nephrotoxic medications and renally dose antibiotics. (5) HIV (human immunodeficiency virus infection) Current Visit: Yes Status: Chronic Assessment and plan: Stable. - Continue Antiretro-viral (6) SIRS (systemic inflammatory response syndrome) Current Visit: Yes Status: Resolved Assessment and plan: Resolved. (7) Hypomagnesemia Current Visit: Yes Status: Acute Assessment and plan: Low magnesium in the setting of pancreatitis - Patient is asymptomatic and improving Plan: -Oral magnesium 400 mg twice a day - Repeat magnesium level tomorrow morning (8) Macrocytic anemia Current Visit: Yes Status: Acute Assessment and plan: Patient has macrocytic anemia in the setting of HIV, chronic kidney disease and chronic antiretroviral therapy. He also has acute pancreatitis and third spacing. - Hemoglobin is 7.7 down from 11.2. No signs of bleeding, also likely dilutional with high volume fluid replacement. - We will monitor hemoglobin level and replace if hemoglobin falls below 7.0 (9) Leukocytosis Current Visit: Yes Status: Acute Assessment and plan: Leukocytosis in the setting of pancreatitis. WBC 24. Patient is improving clinically. No other signs of infection at this time. -Repeat CT shows no development of pseudocyst at this time - IV Zosyn started per Surgery team Qualifiers: Qualified Code(s): D72.829 - Elevated white blood cell count, unspecified (10) Metabolic acidosis Current Visit: Yes Status: Acute Assessment and plan: Patient had a bicarbonate level of 10 and a chloride level of 124 in the sitting acute pancreatitis. - he has been receiving bicarbonate with improvement to a bicarbonate of 15 Plan: - Continue dose of bicarbonate to 1300 3 times a day (11) DVT prophylaxis Current Visit: No Status: Acute Assessment and plan: Subcutaneous heparin every 8 hours - Subjective Interval history: Mr. Muñoz was seen and evaluated at bedside this morning. He is awake alert and interactive. He says that his abdominal pain is almost completely resolved and he only has some mild tenderness to his lateral sides of his abdomen. He has been tolerating solid foods including 2% milk without any nausea, vomiting or recurrence of abdominal pains. He denies having any noticeable fevers, chills, sweating, burning with urination, other signs of infection. He says that the cyst on his scrotum is still draining but is not giving him any swelling, tenderness or abnormal feeling. He is concerned about the potassium loss and says that he has had some loose stools but only 2-3 per day. - Constitutional Vitals: Temp Pulse Resp BP Pulse Ox 98.9 F 100 18 100/64 96 08/05/17 06:53 08/05/17 06:53 08/05/17 06:53 08/05/17 06:53 08/05/17 06:53 Exam: General: Patient alert, awake, oriented 3, interactive, in no acute distress HEENT: Normocephalic, atraumatic, pupils equal reactive to light, nasal cavity patent and open septum median position, oral mucosa moist, uvula midline, neck supple trachea midline no palpable lymphadenopathy, no thyromegaly. Chest: Symmetric bilateral correlating with respiratory effort, effort nonlabored. Cardiac: Regular rate and rhythm, positive S1 and S2. no bruits appreciated bilateral carotids, Radial pulses 2+ bilateral, posterior tibial and dorsal pedal pulses 2+ bilateral. Respiratory: Clear to auscultation all lung [place] Abdomen: Soft, nontender to palpation, positive bowel sounds, no palpable masses appreciated on examination Extremities: Symmetric bilateral, bilateral lower extremities without erythema or edema patient moving all 4 extremities spontaneously. Neurologic: No focal deficits appreciated on examination. Face symmetric, muscle strength symmetric bilateral upper and lower extremities. Internal Medicine: Result - Labs CBC & Chem 7: 08/05/17 05:13 08/05/17 12:29 Labs: Short CBC 08/05/17 Range/Units 05:13 WBC 24.2 H (4.3-11.1) K/mcL Hgb 7.7 L (12.9-16.9) g/dL Hct 23.1 L (37.5-50.1) % Plt Count 263 (140-400) K/mcL Neutrophils # 18.1 H (1.6-8.9) K/mcL BMP 08/04/17 08/05/17 12:19 05:13 Sodium 138 Potassium 3.0 L 2.8 L Chloride 116 H Carbon Dioxide 15 L BUN 9 Creatinine 2.32 H Glucose 101 H Calcium 8.5 L Liver Function 08/05/17 Range/Units 05:13 Total Bilirubin 0.3 (0.2-1.2) mg/dL AST 19 (5-34) Units/L ALT 14 (0-55) Units/L Alkaline Phosphatase 130 H (38-126) Units/L Albumin 2.0 L (3.5-5.0) g/dL - Impressions Impressions Abdomen/Pelvis CT 08/04/17 14:00 IMPRESSION: 1. No significant change in appearance of diffuse pancreatitis. No findings definitive for pancreatic hemorrhage. Evaluation for pancreatic necrosis is limited by lack of contrast administration. 2. Mildly dilated jejunal loops, likely reactive ileus. 3. Persistent though decreased trace free fluid now in the pelvis, likely improved reactive fluid. 4. New trace bilateral effusions. 5. Liquid stool throughout the colon, suggesting diarrhea. 6. Minimal new right hydronephrosis with unchanged appropriate positioning of a right ureteral stent. 7. Unchanged clustered calculi in the mid right ureter as well as unchanged nonobstructing calculi in both renal collecting systems. D/ / Pablito Stevens MD / Pablito Stevens MD Interpreting Provider: Pablito Stevens MD - VTE Documentation of Mechanical Device: Intermittent pneumatic compression device Consult Discharge Plan - Plan Referrals: Robert Meier MD [Partnered Physician] - (Patient will need a hospital f/ u after discharge. His prior appt. was cancelled due to being an inpatient. Thank you.) Ozzie Fall MD [Primary Care Provider] - <Marcus Lopez - Last Filed: 08/05/17 18:12> Date of Encounter: 08/05/17 - Assessment and plan (1) Pancreatitis Current Visit: Yes Status: Acute Qualifiers: Chronicity: acute Pancreatitis type: other Acute pancreatitis complication: no infection or necrosis Qualified Code(s): K85.80 - Other acute pancreatitis without necrosis or infection (2) Hypokalemia Current Visit: Yes Status: Acute (3) Hypomagnesemia Current Visit: Yes Status: Acute (4) Leukocytosis Current Visit: Yes Status: Acute Qualifiers: Leukocytosis type: unspecified Qualified Code(s): D72.829 - Elevated white blood cell count, unspecified (5) Acidosis, metabolic Current Visit: No Status: Acute (6) HIV (human immunodeficiency virus infection) Current Visit: Yes Status: Chronic - Constitutional Vitals: Temp Pulse Resp BP Pulse Ox 98.0 F 110 16 104/63 94 08/05/17 15:20 08/05/17 15:20 08/05/17 15:20 08/05/17 15:20 08/05/17 15:20 Internal Medicine: Result - Labs CBC & Chem 7: 08/05/17 05:13 08/05/17 12:29 Labs: Short CBC 08/05/17 Range/Units 05:13 WBC 24.2 H (4.3-11.1) K/mcL Hgb 7.7 L (12.9-16.9) g/dL Hct 23.1 L (37.5-50.1) % Plt Count 263 (140-400) K/mcL Neutrophils # 18.1 H (1.6-8.9) K/mcL BMP 08/05/17 08/05/17 05:13 12:29 Sodium 138 Potassium 2.8 L 3.2 L Chloride 116 H Carbon Dioxide 15 L BUN 9 Creatinine 2.32 H Glucose 101 H Calcium 8.5 L Liver Function 08/05/17 Range/Units 05:13 Total Bilirubin 0.3 (0.2-1.2) mg/dL AST 19 (5-34) Units/L ALT 14 (0-55) Units/L Alkaline Phosphatase 130 H (38-126) Units/L Albumin 2.0 L (3.5-5.0) g/dL Urine 08/05/17 Range/Units 12:30 Urine Color Yellow (Yellow) Urine Clarity Clear (Clear) Urine pH 7.0 (5.0-8.0) pH Units Ur Specific [place] 1.010 (1.010-1.025) Urine Protein 100 H (Neg-Trace) mg/dL Urine Glucose (UA) 250 H (Normal) mg/dL - Attending Attestation I examined this patient and my medical decision-making was reviewed with the Resident Physician on 08/05/17. I agree with the documented findings, disposition and treatment plan as described except to the extent set forth below. Mr. Muñoz is currently admitted for acute pancreatitis and leukocytosis. He remains moderate to high risk due to potential for worsening clinical status. Mr Muñoz feels OK. He is having some loose stool. No abd pain. Not as hungry today but has been eating. No fever or chills. No CP or SOB. Exam Alert. Comfortable Heart reg and not tachy Lungs clear Abd soft No edema I/P 1. Pancreatitis 2. Leukocytosis 3. Check C diff Further diagnoses and plan as above.
[2017-08-05] MEDS: *HR* Promethazine 25 MG/ML VIAL IVP PRN ×2 (11:14→18:31)
[2017-08-05 12:58] LABS: Magnesium 1.6 mg/dL (1.6-2.6); Potassium 3.2 mEq/L (3.5-4.5)
--- NOTE | 2017-08-05 13:04 | General Surgery Progress Note ---
Date of Encounter: 08/05/17 Time of Encounter: 13:02 - Assessment and Plan (1) TESSIE (acute kidney injury) Current Visit: Yes Status: Acute Currently managed by the hospitalist. Noted mild increase in creatinine. To be followed by primary service. (2) Pancreatitis Current Visit: Yes Status: Acute Patient denies any abdominal pain symptoms. He does admit to some mild lateral flank pain/discomfort bilaterally. No bruising identified on examination. I am not certain that this is related to his pancreatitis since his abdominal exam and epigastric region is benign. He is tolerating a by mouth regular diet. Noted WBC has mildly decreased and patient restarted on IV antibiotics. I believe his pancreatitis is more idiopathic in nature or likely related to his history of HIV. At this time no new recommendations and he does not require any type of surgical intervention. Will follow from a distance. Thank you. Qualifiers: Chronicity: acute Pancreatitis type: other Acute pancreatitis complication: no infection or necrosis Qualified Code(s): K85.80 - Other acute pancreatitis without necrosis or infection Subjective Patient reports: no new complaints (tolerating PO diet. Denies any abdominal pain. No nausea or vomiting.) Objective Vital Signs - Last 8 Hours Temp Pulse Resp BP Pulse Ox 08/05/17 11:15 98.2 F 108 18 98/59 95 08/05/17 06:53 98.9 F 100 18 100/64 96 Intake and Output 08/04/17 08/05/17 08/05/17 23:59 07:59 15:59 Intake Total 100 / 100 100 / 100 200 / 200 Output Total 0 / 0 400 / 400 0 / 0 Balance 100 / 100 -300 / -300 200 / 200 Intake: IV Fluids 100 / 100 100 / 100 Zosyn 3.375 GM In 100 / 100 100 / 100 Dextrose 5% (Minibag+) 100 ML 100 ML @ 25 mls/hr IVPB Q8H [facility] Rx#: [id number] Oral 0 / 0 0 / 0 200 / 200 Output: Urine 0 / 0 400 / 400 0 / 0 Other: Weight 71.5 kg Blood Glucose* 136 100 121 Patient Weight 08/05/17 23:59 Weight 71.5 kg - General physical appearance no distress - Abdomen Abdomen: Present: soft, non tender - Labs 08/06/17 05:26 08/06/17 05:26 Diabetes panel 08/05/17 08/05/17 Range/Units 05:13 12:29 Sodium 138 (136-145) mEq/L Potassium 2.8 L 3.2 L (3.5-4.5) mEq/L Chloride 116 H (98-109) mEq/L Carbon Dioxide 15 L (19-29) mEq/L BUN 9 (8-26) mg/dL Creatinine 2.32 H (0.72-1.25) mg/dL Glucose 101 H (70-99) mg/dL Calcium 8.5 L (8.6-10.8) mg/dL AST 19 (5-34) Units/L ALT 14 (0-55) Units/L Alkaline Phosphatase 130 H (38-126) Units/L Albumin 2.0 L (3.5-5.0) g/dL Calcium panel 08/05/17 Range/Units 05:13 Calcium 8.5 L (8.6-10.8) mg/dL Albumin 2.0 L (3.5-5.0) g/dL Pituitary panel 08/05/17 08/05/17 Range/Units 05:13 12:29 Sodium 138 (136-145) mEq/L Potassium 2.8 L 3.2 L (3.5-4.5) mEq/L Chloride 116 H (98-109) mEq/L Carbon Dioxide 15 L (19-29) mEq/L BUN 9 (8-26) mg/dL Creatinine 2.32 H (0.72-1.25) mg/dL Glucose 101 H (70-99) mg/dL Calcium 8.5 L (8.6-10.8) mg/dL Adrenal panel 08/05/17 08/05/17 Range/Units 05:13 12:29 Sodium 138 (136-145) mEq/L Potassium 2.8 L 3.2 L (3.5-4.5) mEq/L Chloride 116 H (98-109) mEq/L Carbon Dioxide 15 L (19-29) mEq/L BUN 9 (8-26) mg/dL Creatinine 2.32 H (0.72-1.25) mg/dL Glucose 101 H (70-99) mg/dL Calcium 8.5 L (8.6-10.8) mg/dL Total Bilirubin 0.3 (0.2-1.2) mg/dL AST 19 (5-34) Units/L ALT 14 (0-55) Units/L Alkaline Phosphatase 130 H (38-126) Units/L Albumin 2.0 L (3.5-5.0) g/dL - VTE Documentation of Mechanical Device: Intermittent pneumatic compression device Consult Discharge Plan - Plan Referrals: Robert Meier MD [Partnered Physician] - (Patient will need a hospital f/ u after discharge. His prior appt. was cancelled due to being an inpatient. Thank you.) Ozzie Fall MD [Primary Care Provider] -
[2017-08-05 13:11] LABS: Bilirubin,Urine Negative (Negative); Blood,Urine Moderate (Negative); Clarity,Urine Clear (Clear); Color,Urine Yellow (Yellow); Glucose,Urine (UA) 250 mg/dL (Normal); Ketones,Urine Negative (Negative); Leukocyte Esterase,Urine Small (Negative); Nitrite,Urine Negative (Negative); Protein,Urine 100 mg/dL (Neg-Trace); Urobilinogen,Urine Normal (Normal)
[2017-08-05 13:13] LABS: Bacteria,Urine None Seen per hpf (None-Few); Hyaline Casts,Urine None Seen per lpf (None-Few); RBC,Urine 15-30 per hpf (0-3); Squamous Epithelial Cell,Urine Many per lpf (None-Few)
--- NOTE | 2017-08-05 16:38 | Nephrology Consult Note ---
Date of Encounter: 08/05/17 Time of Encounter: 16:35 Assessment and Plan (1) TESSIE (acute kidney injury) Current Visit: Yes Status: Acute Patient with acute kidney injury that is likely secondary to volume depletion from his pancreatitis. With hydration and resolution of his pancreatitis his renal function has improved. Continue to avoid nephrotoxins and adjust medications for renal function. Patient with possible chronic kidney disease as I do not see a EGFR higher than 60 since February 2017. (2) Hypokalemia Current Visit: Yes Status: Acute Patient with significant hypokalemia of unclear etiology. This could be partially due to total body potassium losses that might have occurred when his pancreatitis flared. I recommend replacing magnesium to greater than 2.0. If possible improving on his metabolic acidosis. Then giving adequate potassium. If this is unsuccessful we may need to obtain a 24-hour urine. He also may need a potassium sparing diuretic. It is possible that one of his medications is contributing to his potassium wasting state. (3) Hypomagnesemia Current Visit: Yes Status: Acute We will replace magnesium to greater than 2.0. (4) Acidosis, metabolic Current Visit: No Status: Acute We will order replacement and follow labs. He may have an RTA. (5) Anemia Current Visit: No Status: Chronic Monitor. His iron saturation, vitamin B-12, and folate were normal in February 2017. Qualifiers: Anemia type: other cause Qualified Code(s): D53.0 - Protein deficiency anemia History of Present Illness - Reason for Consult Consult date: 08/05/17 Acute Kidney Injury, hypokalemia - Chief Complaint Hypokalemia, acute kidney injury. - History of Present Illness Mr. Muñoz is a 31 yo man with HIV who presents for the evaluation of abdominal pain. Patient was found to have pancreatitis and acute kidney injury he was treated with bowel rest and IV hydration. His pancreatitis seems to have resolved, but he is not responding to large amounts of potassium for his hypokalemia. At the time my evaluation he denies chest pain, shortness of breath, nausea, vomiting, or abdominal pain. The patient was seen during his last hospitalization by my partners. Past Med Surg Social Fam HX - Past Medical History Medical history: GERD, HIV/AIDS (HIV), kidney stones, renal disease, other ( hidradenitis) Psychiatric history: anxiety, depression - Past Surgical History Surgical History: other (renal stents x 3, nephrostomy tube, testicular torsion fixation 2007) - Social History Smoking Status: Current every day smoker Packs per day: 1 Smokeless Tobacco Status: No Alcohol use: rarely Drug use: none - Family History Mother Hx Family Cardiac Disorders: Yes (Heart disease, Strokes, NE) Hx Family Cancer: Yes Hx Family Endocrine Disorder: Yes (DM) Medications and Allergies Cetirizine HCl [Zyrtec] 10 mg PO AD 03/08/17 [History] Citalopram Hydrobromide [Celexa] 40 mg PO DAILY 03/08/17 [History] Doxycycline 100 mg PO BID 03/08/17 [History] Dronabinol [Marinol] 2.5 mg PO BID 03/08/17 [History] Efavirenz/Emtricitab/Tenofovir [Atripla Tablet] 1 tab PO DAILY 03/08/17 [History ] Gabapentin [Neurontin] 800 mg PO QID 03/08/17 [History] Glycopyrrolate [Robinul] 1 mg PO BID 03/08/17 [History] HydrOXYzine Pamoate [Vistaril] 50 mg PO BID 03/08/17 [History] Pnv with Ca,No.72/Iron/FA [Pnv Plus Multivit Tab] 1 tab PO DAILY [History] Benzoyl Peroxide 1 appl TP DAILY 03/27/17 [History] Ciclopirox 1 appl TP DAILY 03/27/17 [History] Divalproex (12 HR) [Depakote (12 HR)] 500 mg PO HS 03/27/17 [History] Meloxicam 15 mg PO DAILY 04/10/17 [History] Cetirizine HCl/Pseudoephedrine [Cetirizine-Pse ER 5-120 mg Tab] 1 each PO DAILY 07/19/17 [History] EPINEPHrine [Epipen] 0.3 mg IM ONCE PRN 07/19/17 [History] Fexofenadine HCl 180 mg PO AD 07/19/17 [History] Ranitidine HCl [Zantac] 300 mg PO DAILY 07/19/17 [History] Sulfamethoxazole/Trimeth DS [Bactrim DS] 1 each PO BID #20 tablet 07/24/17 [Rx] Penicillin VK [Pencillin VK] 500 mg PO TID 07/31/17 [History] 3 Allergy/AdvReac Type Severity Reaction Status Date / Time Cefaclor [From [facility]] Allergy Hives Verified 07/31/17 15:03 Review of Systems All Systems: reviewed and no additional remarkable complaints except as stated ( As described in the history of present illness.) Exam - Vital Signs Vital signs: Initial Vital Signs Temp Pulse Resp BP Pulse Ox 97.6 F 85 16 123/84 100 07/31/17 14:58 07/31/17 14:58 07/31/17 14:58 07/31/17 14:58 07/31/17 14:58 Vital Signs - Last 8 Hours Temp Pulse Resp BP Pulse Ox 08/05/17 15:20 98.0 F 110 16 104/63 94 08/05/17 11:15 98.2 F 108 18 98/59 95 Intake and Output 08/05/17 08/05/17 08/05/17 07:59 15:59 23:59 Intake Total 100 / 100 300 / 300 Output Total 400 / 400 0 / 0 Balance -300 / -300 300 / 300 Intake: IV Fluids 100 / 100 100 / 100 Zosyn 3.375 GM In 100 / 100 100 / 100 Dextrose 5% (Minibag+) 100 ML 100 ML @ 25 mls/hr IVPB Q8H [facility] Rx#: [id number] Oral 0 / 0 200 / 200 Output: Urine 400 / 400 0 / 0 Other: Meal Lunch Percent of Meal Consumed 50% Weight 71.5 kg Blood Glucose* 100 121 117 Patient Weight 08/05/17 23:59 Weight 71.5 kg - General Appearance General appearance: well-developed, well-nourished EENT: ATNC Neck: supple Respiratory: clear Cardiology: no edema, regular rate, regular rhythm Gastrointestinal: no tenderness Integumentary: warm and dry Neurologic: alert and oriented x3 Musculoskeletal: no cyanosis Psychiatric: mood/affect appropriate Results - Lab Results 08/05/17 05:13 08/05/17 12:29 Most recent lab results Calcium 8.5 mg/dL (8.6-10.8) L 08/05/17 05:13 Phosphorus 1.8 mg/dL (2.3-4.7) L 08/04/17 05:43 Magnesium 1.6 mg/dL (1.6-2.6) 08/05/17 12:29 Consult Discharge Plan - Plan Referrals: Robert Meier MD [Partnered Physician] - (Patient will need a hospital f/ u after discharge. His prior appt. was cancelled due to being an inpatient. Thank you.) Ozzie Fall MD [Primary Care Provider] -
[2017-08-05] MEDS ORDERED: Magnesium Sulfate 2 GM in D5% in Water 100 ML IVPB ONE (16:44)
[2017-08-05] MEDS ORDERED: Magnesium Sulfate 1 GM in D5% in Water 100 ML IVPB ONE (17:00)
[2017-08-05] MEDS: EFAVIRENZ/EMTRICITAB/TENOFOVIR 1 EACH TABLET PO SCH (21:01)
[2017-08-05] MEDS: Divalproex (12 HR) 500 MG TABLET PO SCH (21:01)
[2017-08-06] MEDS: Sodium Bicarbonate 150 MEQ in D5% in Water 1,000 ML IVC SCH ×2 (00:17→08:37)
[2017-08-06] MEDS: *HR* HYDROmorphone (PF) 1 MG/ML SYRINGE IVP PRN ×8 (00:39→23:50)
[2017-08-06] MEDS: *HR* Heparin 5,000 UNIT/ML VIAL SQ SCH ×3 (06:12→22:33)
[2017-08-06 06:30] LABS: Mean Corpuscular Volume 101.3 fL (83.0-100.0); Red Cell Distribution Width 16.3 % (11.5-14.5)
[2017-08-06 06:32] LABS: Hematocrit 24.2 % (37.5-50.1); Hemoglobin 8.1 g/dL (12.9-16.9); Mean Corpuscular HGB Conc 33.5 g/dL (31.6-35.5); Mean Corpuscular Hemoglobin 33.9 pg (28.0-33.3); Mean Platelet Volume 9.5 fL (9.4-12.4); Platelet Count 334 K/mcL (140-400); Red Blood Count 2.39 M/mcL (4.19-5.50)
[2017-08-06 06:42] LABS: Magnesium 2.4 mg/dL (1.6-2.6); Phosphorous 1.3 mg/dL (2.3-4.7)
[2017-08-06 06:52] LABS: Albumin/Globulin Ratio 0.4 (1.1-2.2); Bilirubin,Total 0.3 mg/dL (0.2-1.2); Calcium 8.2 mg/dL (8.6-10.8); Potassium 2.7 mEq/L (3.5-4.5); Total Protein 6.8 g/dL (6.0-8.3)
[2017-08-06 06:57] LABS: Albumin 1.8 g/dL (3.5-5.0)
[2017-08-06 07:02] LABS: Anisocytosis 1+ (Not Present); Lymphocytes # 1.1 K/mcL (0.6-4.6); Macrocytosis Present (Not Present); Monocytes # 1.6 K/mcL (0.0-1.3); Neutrophils # 23.5 K/mcL (1.6-8.9); Platelet Estimate Normal (Normal)
--- NOTE | 2017-08-06 07:37 | Internal Med Progress Note ---
Addendum entered and electronically signed by Nilton Darby DO 08/06 11:07: Continue oral bicarbonate replacement. Original Note: <Nilton Darby - Last Filed: 08/06/17 10:39> Date of Encounter: 08/06/17 Time of Encounter: 07:36 - Assessment and plan (1) Cellulitis of foot, left Current Visit: Yes Status: Acute Assessment and plan: Patient has left foot swelling, erythema and edema and warmth concerning for cellulitis. This is associated with low-grade fever and diabetes E count of 25. - IV vancomycin - Monitor renal function. (2) Pancreatitis Current Visit: Yes Status: Acute Assessment and plan: Patient presented with abdominal pain, abdominal distension since Monday. Lipase >3000, Amylase >800. CT of the abdomen demonstrates pancreatic enlargement with surrounding fat stranding and swelling of the duodenum. - RUQ US does not demonstrate stones but does have sludge. - Patient denies hx of pancreatitis but does believe his symptoms are related to his recent renal stenting. - Denies hx of gallstones, alcohol use, previous pancreatitis episodes or significant family hx of pancreatitis - Patient has been taking his antiviral for HIV since 2008 without pancreatitis which is a potential complication of this medication. 08/02: Patient states the pain is the same as the day prior. Lipase trending down, patient sitting up in bed which is improvement from yesterday. 08/03: Lipase <1000, symptom resolving. Patient is improving clinically 08/04: Lipase significantly improved below 300, patient is tolerating full liquids and sitting in bed without discomfort. He does continue to have hypokalemia which may be due to third spacing that should not be as significant. He is tolerating advancements in his diet. He has had a low- grade fever with a high of 100 but no new findings or change in abdominal pain. Will keep an eye on vitals and lab results with a low suspicion for evaluating for potential pancreatic abscess versus pseudocyst. 08/05: Symptoms resolving, patient is tolerating oral intake. 08/06: Symptomatically resolved. Plan: - electrolyte replacement - monitor abdominal exam. - Advance diet as tolerated - Surgery involved and recommendations appreciated. Qualifiers: Chronicity: acute Pancreatitis type: other Acute pancreatitis complication: no infection or necrosis Qualified Code(s): K85.80 - Other acute pancreatitis without necrosis or infection (3) Hypokalemia Current Visit: Yes Status: Acute Assessment and plan: Patient continues to have hypokalemia after significant electrolyte replacement. There is concern for possible renal loss such as RTA as the patient's pancreatitis has resolved but continues to have hypokalemia. - Continues to have hypokalemia, 24-hour potassium in progress. Plan: - 40meq potassium chloride by mouth twice a day - Repeat potassium level at noon - Urinalysis with microscopy, 24 hour urine sodium and 24-hour urine potassium - Nephrology regarding the patient, appreciate the recommendations (4) History of stent insertion of renal artery Current Visit: Yes Status: Acute Assessment and plan: Stent seen on imaging in the right ureter, patient having adequate output without burning with urination or flank pain. - Stable (5) TESSIE (acute kidney injury) Current Visit: No Status: Acute Assessment and plan: Acute kidney injury on chronic kidney disease, significant history of obstructive uropathy. Likely secondary to Pancreatitis, Patient was admitted with nephrolithiasis at the begining of the month. Prior he had a GFR > 40 in February - Creatinine and GFR are staying stable. Plan: - Continue oral intake - monitor with AM labs Avoid nephrotoxic medications and renally dose antibiotics. (6) HIV (human immunodeficiency virus infection) Current Visit: Yes Status: Chronic Assessment and plan: Stable. - Continue Antiretro-viral - CD4 count pending (7) SIRS (systemic inflammatory response syndrome) Current Visit: Yes Status: Resolved Assessment and plan: Resolved. (8) Hypomagnesemia Current Visit: Yes Status: Acute Assessment and plan: Resolved. Plan: -Discontinue oral magnesium (9) Macrocytic anemia Current Visit: Yes Status: Acute Assessment and plan: Patient has macrocytic anemia in the setting of HIV, chronic kidney disease and chronic antiretroviral therapy. He also has acute pancreatitis and third spacing. - Hemoglobin is 7.7 down from 11.2. No signs of bleeding, also likely dilutional with high volume fluid replacement. - We will monitor hemoglobin level and replace if hemoglobin falls below 7.0 (10) Leukocytosis Current Visit: Yes Status: Acute Assessment and plan: Leukocytosis in the setting of pancreatitis. WBC 24. Patient is improving clinically. No other signs of infection at this time. -Repeat CT shows no development of pseudocyst at this time - Further examination findings demonstrate cellulitis of the left foot Plan: - IV vancomycin renally dosed per nephrology Qualifiers: Qualified Code(s): D72.829 - Elevated white blood cell count, unspecified (11) Metabolic acidosis Current Visit: Yes Status: Acute Assessment and plan: Patient had a bicarbonate level of 10 and a chloride level of 124 in the sitting acute pancreatitis. - he has been receiving bicarbonate with improvement to a bicarbonate of 19 Plan: - Discontinue oral bicarbonate (12) DVT prophylaxis Current Visit: No Status: Acute Assessment and plan: Subcutaneous heparin every 8 hours - Subjective Interval history: Mr. Muñoz was seen and evaluated at bedside this morning. He denies any pain or discomforts and says that he is tired of being in the hospital. He says that he is feeling much better and is unsure of why he has losing potassium. After further discussion he mentions that he does have left foot swelling which she has been using TIFFANIE hose for. He denies fevers, chills, sweating but says that he feels that his foot has been swollen and not improving. He feels that his diarrhea is improving and is more solid today. - Constitutional Vitals: Temp Pulse Resp BP Pulse Ox 97.9 F 100 16 100/65 96 08/06/17 07:17 08/06/17 07:17 08/06/17 07:17 08/06/17 07:17 08/06/17 07:17 Exam: General: Patient alert, awake, oriented 3, interactive, in no acute distress HEENT: Normocephalic, atraumatic, pupils equal reactive to light, nasal cavity patent and open septum median position, oral mucosa moist, uvula midline, neck supple trachea midline no palpable lymphadenopathy, no thyromegaly. Chest: Symmetric bilateral correlating with respiratory effort, effort nonlabored. Cardiac: Regular rate and rhythm, positive S1 and S2. no bruits appreciated bilateral carotids, Radial pulses 2+ bilateral, posterior tibial and dorsal pedal pulses 2+ bilateral. Respiratory: Clear to auscultation all lung [place] Abdomen: Soft, nontender, positive bowel sounds, no palpable masses appreciated on examination Extremities: Symmetric bilateral, right foot demonstrates edema, erythema and warmth with mild tenderness to palpation and a lesion on the dorsal aspect of his foot that shows mild inflammation. patient moving all 4 extremities spontaneously. Neurologic: No focal deficits appreciated on examination. Face symmetric, muscle strength symmetric bilateral upper and lower extremities. Internal Medicine: Result - Labs CBC & Chem 7: 08/06/17 05:26 08/06/17 05:26 Labs: Short CBC 08/06/17 Range/Units 05:26 WBC 26.7 H (4.3-11.1) K/mcL Hgb 8.1 L (12.9-16.9) g/dL Hct 24.2 L (37.5-50.1) % Plt Count 334 (140-400) K/mcL Neutrophils # 23.5 H (1.6-8.9) K/mcL BMP 08/05/17 08/06/17 12:29 05:26 Sodium 137 Potassium 3.2 L 2.7 L Chloride 110 H Carbon Dioxide 19 BUN 8 Creatinine 2.26 H Glucose 104 H Calcium 8.2 L Liver Function 08/05/17 08/06/17 Range/Units 05:13 05:26 Total Bilirubin 0.3 (0.2-1.2) mg/dL AST 21 (5-34) Units/L ALT 19 (0-55) Units/L Alkaline Phosphatase 155 H (38-126) Units/L Albumin 2.0 L 1.8 L (3.5-5.0) g/dL Urine 08/05/17 Range/Units 12:30 Urine Color Yellow (Yellow) Urine Clarity Clear (Clear) Urine pH 7.0 (5.0-8.0) pH Units Ur Specific [place] 1.010 (1.010-1.025) Urine Protein 100 H (Neg-Trace) mg/dL Urine Glucose (UA) 250 H (Normal) mg/dL - VTE Documentation of Mechanical Device: Graduated compression elastic hosiery Consult Discharge Plan - Plan Referrals: Robert Meier MD [Partnered Physician] - (Patient will need a hospital f/ u after discharge. His prior appt. was cancelled due to being an inpatient. Thank you.) Ozzie Fall MD [Primary Care Provider] - <Marcus Lopez - Last Filed: 08/06/17 18:07> Date of Encounter: 08/06/17 - Assessment and plan (1) Cellulitis of foot, left Current Visit: Yes Status: Acute (2) Pancreatitis Current Visit: Yes Status: Acute Qualifiers: Chronicity: acute Pancreatitis type: other Acute pancreatitis complication: no infection or necrosis Qualified Code(s): K85.80 - Other acute pancreatitis without necrosis or infection (3) Hypokalemia Current Visit: Yes Status: Acute (4) Hypomagnesemia Current Visit: Yes Status: Resolved (5) Leukocytosis Current Visit: Yes Status: Acute Qualifiers: Leukocytosis type: unspecified Qualified Code(s): D72.829 - Elevated white blood cell count, unspecified (6) Acidosis, metabolic Current Visit: No Status: Resolved (7) HIV (human immunodeficiency virus infection) Current Visit: Yes Status: Chronic - Constitutional Vitals: Temp Pulse Resp BP Pulse Ox 99.1 F 108 14 104/62 97 08/06/17 15:21 08/06/17 15:21 08/06/17 15:21 08/06/17 15:21 08/06/17 15:21 Internal Medicine: Result - Labs CBC & Chem 7: 08/06/17 05:26 08/06/17 05:26 Labs: Short CBC 08/06/17 Range/Units 05:26 WBC 26.7 H (4.3-11.1) K/mcL Hgb 8.1 L (12.9-16.9) g/dL Hct 24.2 L (37.5-50.1) % Plt Count 334 (140-400) K/mcL Neutrophils # 23.5 H (1.6-8.9) K/mcL BMP 08/06/17 05:26 Sodium 137 Potassium 2.7 L Chloride 110 H Carbon Dioxide 19 BUN 8 Creatinine 2.26 H Glucose 104 H Calcium 8.2 L Liver Function 08/06/17 Range/Units 05:26 Total Bilirubin 0.3 (0.2-1.2) mg/dL AST 21 (5-34) Units/L ALT 19 (0-55) Units/L Alkaline Phosphatase 155 H (38-126) Units/L Albumin 1.8 L (3.5-5.0) g/dL - Impressions Impressions Foot X-Ray 08/06/17 09:48 IMPRESSION: Soft tissue thickening in the forefoot. No soft tissue gas is seen. D/ / Kiet Burton MD / Kiet Burton MD Interpreting Provider: Kiet Burton MD - Attending Attestation I examined this patient and my medical decision-making was reviewed with the Resident Physician on 08/06/17. I agree with the documented findings, disposition and treatment plan as described except to the extent set forth below. Mr. Muñoz is currently admitted for leukocytosis and pancreatitis. He remains moderate to high risk due to potential for worsening clinical status. Mr. Muñoz continues to have elevated WBC. Has area of erythema on L foot. Swelling present. No fever or chills. No CP or SOB. Exam Alert. Comfortable Heart reg No wheeze L foot with swelling and erythema on top. Abd soft I/P 1. Cellulitis - abx coverage 2. Leukocytosis - if does not improve with abx consider heme consult. Further diagnoses and plan as above.
[2017-08-06] MEDS: Magnesium Oxide 400 MG TABLET PO SCH (08:32)
[2017-08-06] MEDS: Gabapentin 400 MG CAPSULE PO SCH ×4 (08:32→20:46)
[2017-08-06] MEDS: hydrOXYzine pamoate 25 MG CAPSULE PO SCH ×2 (08:33→20:47)
[2017-08-06] MEDS: Nicotine 21 MG PATCH.TD24 TD SCH (08:34)
[2017-08-06] MEDS ORDERED: Acetaminophen 325 MG TABLET PO PRN (08:53)
[2017-08-06] MEDS ORDERED: Vancomycin 1,000 MG in D5% in Water 250 ML IVPB SCH (10:00)
[2017-08-06] MEDS: *HR* Promethazine 25 MG/ML VIAL IVP PRN ×2 (10:10→16:47)
[2017-08-06] MEDS: Vancomycin 1,250 MG in D5% in Water 250 ML IVPB SCH (11:54)
[2017-08-06 13:58] LABS: Total Volume 24 Hour,Urine 1.34 Liters (0.80-1.80)
[2017-08-06 14:28] LABS: Creatinine 24 Hour,Urine 0.23 g/day (0.71-1.65); Potassium 24 Hour,Urine 25.6 mEq/day (25.0-125.0); Protein/Creatinine Ratio,Urine 2.77 mg/mg (0-0.20)
[2017-08-06 14:30] LABS: Potassium,Urine 19.1 mEq/L
[2017-08-06] MEDS: Divalproex (12 HR) 500 MG TABLET PO SCH (20:46)
[2017-08-06] MEDS: EFAVIRENZ/EMTRICITAB/TENOFOVIR 1 EACH TABLET PO SCH (20:47)
[2017-08-07] MEDS: *HR* HYDROmorphone (PF) 1 MG/ML SYRINGE IVP PRN ×7 (03:15→21:46)
[2017-08-07] MEDS: *HR* Heparin 5,000 UNIT/ML VIAL SQ SCH ×3 (05:30→21:52)
[2017-08-07 05:44] LABS: Hematocrit 22.5 % (37.5-50.1); Hemoglobin 7.6 g/dL (12.9-16.9); Mean Corpuscular HGB Conc 33.8 g/dL (31.6-35.5); Mean Corpuscular Hemoglobin 34.1 pg (28.0-33.3); Mean Corpuscular Volume 100.9 fL (83.0-100.0); Mean Platelet Volume 9.5 fL (9.4-12.4); Platelet Count 333 K/mcL (140-400); Red Blood Count 2.23 M/mcL (4.19-5.50); Red Cell Distribution Width 16.1 % (11.5-14.5)
[2017-08-07 05:59] LABS: Albumin/Globulin Ratio 0.3 (1.1-2.2); Bilirubin,Total 0.2 mg/dL (0.2-1.2); Calcium 8.1 mg/dL (8.6-10.8); Globulin 4.7 g/dL (2.4-3.5); Total Protein 6.3 g/dL (6.0-8.3)
[2017-08-07 06:02] LABS: Albumin 1.6 g/dL (3.5-5.0)
[2017-08-07 06:04] LABS: Potassium 2.5 mEq/L (3.5-4.5)
[2017-08-07 06:45] LABS: Anisocytosis 1+ (Not Present); Lymphocytes # 5.5 K/mcL (0.6-4.6); Microcytosis Present (Not Present); Monocytes # 2.7 K/mcL (0.0-1.3); Neutrophils # 18.1 K/mcL (1.6-8.9); Platelet Estimate Normal (Normal)
[2017-08-07] MEDS ORDERED: Potassium Chloride Elixir 20 MEQ/15 ML UDC PO ONE (07:06)
[2017-08-07] MEDS: Gabapentin 400 MG CAPSULE PO SCH ×4 (09:14→21:46)
[2017-08-07] MEDS: hydrOXYzine pamoate 25 MG CAPSULE PO SCH ×2 (09:14→21:46)
[2017-08-07] MEDS: Nicotine 21 MG PATCH.TD24 TD SCH (09:15)
[2017-08-07] MEDS: Vancomycin 1,250 MG in D5% in Water 250 ML IVPB SCH (11:45)
--- NOTE | 2017-08-07 14:59 | Internal Med Progress Note ---
<Nilton Darby - Last Filed: 08/07/17 14:57> Date of Encounter: 08/07/17 Time of Encounter: 10:00 - Assessment and plan (1) Cellulitis of foot, left Status: Acute Assessment and plan: Patient has left foot swelling, erythema and edema and warmth concerning for cellulitis. This is associated with low-grade fever and WBC of 25. 08/07: Patient has improvements in left foot swelling and erythema. Plan: - Continue IV vancomycin - Monitor renal function. (2) Pancreatitis Status: Acute Assessment and plan: Patient presented with abdominal pain, abdominal distension since Monday. Lipase >3000, Amylase >800. CT of the abdomen demonstrates pancreatic enlargement with surrounding fat stranding and swelling of the duodenum. - RUQ US does not demonstrate stones but does have sludge. - Patient denies hx of pancreatitis but does believe his symptoms are related to his recent renal stenting. - Denies hx of gallstones, alcohol use, previous pancreatitis episodes or significant family hx of pancreatitis - Patient has been taking his antiviral for HIV since 2008 without pancreatitis which is a potential complication of this medication. 08/02: Patient states the pain is the same as the day prior. Lipase trending down, patient sitting up in bed which is improvement from yesterday. 08/03: Lipase <1000, symptom resolving. Patient is improving clinically 08/04: Lipase significantly improved below 300, patient is tolerating full liquids and sitting in bed without discomfort. He does continue to have hypokalemia which may be due to third spacing that should not be as significant. He is tolerating advancements in his diet. He has had a low- grade fever with a high of 100 but no new findings or change in abdominal pain. Will keep an eye on vitals and lab results with a low suspicion for evaluating for potential pancreatic abscess versus pseudocyst. 08/05: Symptoms resolving, patient is tolerating oral intake. 08/06: Symptomatically resolved. 08/07: Patient is tolerating oral intake without recurrence of pain with food intake. Plan: - electrolyte replacement - monitor abdominal exam. Qualifiers: Chronicity: acute Pancreatitis type: other Acute pancreatitis complication: no infection or necrosis Qualified Code(s): K85.80 - Other acute pancreatitis without necrosis or infection (3) Hypokalemia Status: Acute Assessment and plan: Patient continues to have hypokalemia after significant electrolyte replacement. There is concern for possible renal loss such as RTA as the patient's pancreatitis has resolved but continues to have hypokalemia. - Continues to have hypokalemia. - 24 hour potassium, sodium and magnesium collection complete. Plan: - 40meq potassium chloride by mouth twice a day - Repeat potassium level at noon - Continue to monitor electrolytes daily (4) History of stent insertion of renal artery Status: Acute Assessment and plan: Stent seen on imaging in the right ureter, patient having adequate output without burning with urination or flank pain. - Stable (5) TESSIE (acute kidney injury) Status: Acute Assessment and plan: Acute kidney injury on chronic kidney disease, significant history of obstructive uropathy. Likely secondary to Pancreatitis, Patient was admitted with nephrolithiasis at the begining of the month. Prior he had a GFR > 40 in February - Creatinine and GFR are staying stable. Plan: - Continue oral intake - monitor with AM labs Avoid nephrotoxic medications and renally dose antibiotics. (6) HIV (human immunodeficiency virus infection) Status: Chronic Assessment and plan: Stable. - Continue Antiretro-viral - CD4 count pending (7) SIRS (systemic inflammatory response syndrome) Status: Resolved Assessment and plan: Resolved. (8) Hypomagnesemia Status: Resolved Assessment and plan: Resolved. Plan: -Discontinue oral magnesium (9) Macrocytic anemia Status: Acute Assessment and plan: Patient has macrocytic anemia in the setting of HIV, chronic kidney disease and chronic antiretroviral therapy. He also has acute pancreatitis and third spacing. - Hemoglobin is 7.7 down from 11.2. No signs of bleeding, also likely dilutional with high volume fluid replacement. - We will monitor hemoglobin level and replace if hemoglobin falls below 7.0 (10) Leukocytosis Status: Acute Assessment and plan: Leukocytosis in the setting of pancreatitis. WBC 24. Patient is improving clinically. No other signs of infection at this time. 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 Plan: - IV vancomycin renally dosed per nephrology - Consult placed to hematology Qualifiers: Qualified Code(s): D72.829 - Elevated white blood cell count, unspecified (11) Metabolic acidosis Status: Acute Assessment and plan: Patient had a bicarbonate level of 10 and a chloride level of 124 in the sitting acute pancreatitis. - he has been receiving bicarbonate with improvement to a bicarbonate of 18 Plan: - Continue oral bicarbonate (12) DVT prophylaxis Status: Acute Assessment and plan: Subcutaneous heparin every 8 hours - Subjective Interval history: Mr. Muñoz was seen and evaluated at bedside this morning. He is resting well and denies any discomfort at this time. He does admit to some left lateral abdominal pain which he says flares up when he is not taking pain medications. He denies any fevers, chills, sweating, nausea vomiting. He does have occasional loose stools but denies frequent diarrhea. He does have a history of intermittent diarrhea and constipation which she does not link to any specific time. Regarding his left foot he says it is much better of the swelling is decreased some of the redness and is able to move his toes and is nonpainful. He is frustrated as he does not know where he is losing potassium and is concerned that it may be related to his stent. He denies any episodes of vomiting which could be cause for these loss of electrolytes. He denies any history of electrolyte loss. - Constitutional Vitals: Temp Pulse Resp BP Pulse Ox 98.4 F 104 14 100/63 93 08/07/17 11:33 08/07/17 11:33 08/07/17 11:33 08/07/17 11:33 08/07/17 11:33 Exam: General: Patient alert, awake, oriented 3, interactive, in no acute distress HEENT: Normocephalic, atraumatic, pupils equal reactive to light, nasal cavity patent and open septum median position, oral mucosa moist, uvula midline, neck supple trachea midline no palpable lymphadenopathy, no thyromegaly. Chest: Symmetric bilateral correlating with respiratory effort, effort nonlabored. Cardiac: Regular rate and rhythm, positive S1 and S2. no bruits appreciated bilateral carotids, Radial pulses 2+ bilateral, posterior tibial and dorsal pedal pulses 2+ bilateral. Respiratory: Clear to auscultation all lung [place] Abdomen: Soft, nontender to palpation, positive bowel sounds, no palpable masses appreciated on examination Extremities: Symmetric bilateral, bilateral lower extremities without erythema or edema patient moving all 4 extremities spontaneously. Neurologic: No focal deficits appreciated on examination. Face symmetric, muscle strength symmetric bilateral upper and lower extremities. Internal Medicine: Result - Labs CBC & Chem 7: 09/18/17 04:53 08/07/17 08:24 Labs: Short CBC 08/07/17 Range/Units 04:53 WBC 27.4 H (4.3-11.1) K/mcL Hgb 7.6 L (12.9-16.9) g/dL Hct 22.5 L (37.5-50.1) % Plt Count 333 (140-400) K/mcL Neutrophils # 18.1 H (1.6-8.9) K/mcL BMP 08/07/17 08/07/17 04:53 08:24 Sodium 139 Potassium 2.5 L* 2.6 L Chloride 112 H Carbon Dioxide 18 L BUN 6 L Creatinine 2.47 H Glucose 91 Calcium 8.1 L Liver Function 08/07/17 Range/Units 04:53 Total Bilirubin 0.2 (0.2-1.2) mg/dL AST 23 (5-34) Units/L ALT 18 (0-55) Units/L Alkaline Phosphatase 162 H (38-126) Units/L Albumin 1.6 L (3.5-5.0) g/dL - VTE Documentation of Mechanical Device: Graduated compression elastic hosiery Consult Discharge Plan - Plan Referrals: Robert Meier MD [Partnered Physician] - (Patient will need a hospital f/ u after discharge. His prior appt. was cancelled due to being an inpatient. Thank you.) Ozzie Fall MD [Primary Care Provider] - <Marcus Lopez - Last Filed: 08/14/17 09:54> Date of Encounter: 08/07/17 - Assessment and plan (1) Cellulitis of foot, left Status: Acute (2) Pancreatitis Status: Acute Qualifiers: Chronicity: acute Pancreatitis type: other Acute pancreatitis complication: no infection or necrosis Qualified Code(s): K85.80 - Other acute pancreatitis without necrosis or infection (3) Hypokalemia Status: Acute (4) Hypomagnesemia Status: Resolved (5) Leukocytosis Status: Acute Qualifiers: Leukocytosis type: unspecified Qualified Code(s): D72.829 - Elevated white blood cell count, unspecified (6) Acidosis, metabolic Status: Resolved (7) HIV (human immunodeficiency virus infection) Status: Chronic - Constitutional Vitals: Temp Pulse Resp BP Pulse Ox 97.9 F 93 18 101/68 99 08/09/17 12:25 08/09/17 12:25 08/09/17 12:25 08/09/17 12:25 08/09/17 12:25 Internal Medicine: Result - Labs CBC & Chem 7: 08/09/17 07:40 08/09/17 07:40 - Attending Attestation I examined this patient and my medical decision-making was reviewed with the Resident Physician on 08/07/17. I agree with the documented findings, disposition and treatment plan as described except to the extent set forth below. Note previously signed. Mr Muñoz is currently admitted for leukocytosis and pancreatitis. He remains moderate to high risk due to continued issues with WBC and pain. Mr. Muñoz continues with pain. Long conversation with patient and family about issues. Exam Alert. Tearful Heart reg No wheeze Tender epigastric L foot same I/P 1. Leukocytoisis - heme eval 2. Pancreatitis Further diagnoses and plan as above
--- NOTE | 2017-08-07 20:18 | Event Note ---
Date of Encounter: 08/07/17 Time of Encounter: 16:00 I examined this patient and my medical decision-making was reviewed with the Resident Physician on 08/07/17. I agree with the documented findings, disposition and treatment plan as described except to the extent set forth below. I am unable to sign the progress note of today. Mr Muñoz is currently admitted for pancreatitis and leukocytosis. He remains moderate to high risk due to potential for worsening clinical status. Mr Muñoz continues to have pain. No fever. Eating OK. Foot is about the same. Very anxious and tearful about what is happening. Exam Alert. Tearful Heart reg No wheeze Abd some tenderness I/P 1. Pancreatitis 2. Leukocytosis - heme consult. Further diagnoses and plan as in progress note.
[2017-08-07] MEDS: EFAVIRENZ/EMTRICITAB/TENOFOVIR 1 EACH TABLET PO SCH (21:46)
[2017-08-07] MEDS: Divalproex (12 HR) 500 MG TABLET PO SCH (21:46)
[2017-08-08] MEDS: *HR* HYDROmorphone (PF) 1 MG/ML SYRINGE IVP PRN ×8 (00:44→22:17)
[2017-08-08 05:46] LABS: Hematocrit 24.6 % (37.5-50.1); Mean Platelet Volume 9.3 fL (9.4-12.4); Red Cell Distribution Width 16.7 % (11.5-14.5)
[2017-08-08 05:47] LABS: Mean Corpuscular HGB Conc 32.5 g/dL (31.6-35.5); Mean Corpuscular Volume 104.7 fL (83.0-100.0); Platelet Count 384 K/mcL (140-400); Red Blood Count 2.35 M/mcL (4.19-5.50)
[2017-08-08 05:53] LABS: Hemoglobin A1C 4.5 %
[2017-08-08 05:58] LABS: Alanine Aminotransferase 22 Units/L (0-55); Albumin/Globulin Ratio 0.3 (1.1-2.2); Alkaline Phosphatase 139 Units/L (38-126); Aspartate Amino Transferase 19 Units/L (5-34); BUN/Creatinine Ratio 2 (6-26); Blood Urea Nitrogen 7 mg/dL (8-26); Calcium 8.3 mg/dL (8.6-10.8); Carbon Dioxide 13 mEq/L (19-29); Chloride 116 mEq/L (98-109); Globulin 4.9 g/dL (2.4-3.5); Glucose 95 mg/dL (70-99); Magnesium 1.7 mg/dL (1.6-2.6); Osmolality,Calculated 286 (280-300); Phosphorous 1.7 mg/dL (2.3-4.7); Sodium 139 mEq/L (136-145); Total Protein 6.6 g/dL (6.0-8.3); eGFR For African Americans 30 (> 60); eGFR For Non-African Americans 24 (> 60)
[2017-08-08 06:01] LABS: Albumin 1.7 g/dL (3.5-5.0); Bilirubin,Total < 0.2 mg/dL (0.2-1.2)
[2017-08-08 06:15] LABS: Basophils # 0.5 K/mcL (0.0-0.2); Lymphocytes # 1.6 K/mcL (0.6-4.6); Monocytes # 0.5 K/mcL (0.0-1.3); Neutrophils # 23.8 K/mcL (1.6-8.9)
[2017-08-08 06:16] LABS: Anisocytosis 1+ (Not Present); Macrocytosis Present (Not Present); Platelet Estimate Normal (Normal); Polychromasia 1+ (Not Present)
[2017-08-08] MEDS: *HR* Heparin 5,000 UNIT/ML VIAL SQ SCH ×3 (06:29→22:17)
--- NOTE | 2017-08-08 07:54 | Oncology Inp Consult Note ---
Date of Encounter: 08/08/17 Time of Encounter: 06:00 Assessment and Plan (1) Anemia Status: Chronic Assessment and plan: Macrocytic anemia. He has been coping with anemia since February with a waxing and waning values. Nutritional stores. Adequate. There is no evidence of hemolysis. This is likely secondary to chronic kidney disease and possibly other changes with his health including recent pancreatitis as well as his current bout of cellulitis causing bone marrow suppression. For now, I recommend following this clinically. Consider transfusion for inguinal less than 7 if patient is symptomatic. Qualifiers: Anemia type: other cause Qualified Code(s): D64.89 - Other specified anemias (2) Leukocytosis Status: Acute Assessment and plan: He has developed an acute neutrophil prominent leukocytosis with left shift. His white blood cell count was normal on July 21. This is consistent with a reactive neutrophil prominent leukocytosis. There are multiple triggering factors including his pancreatitis, probable cellulitis of his left foot as well as a perineal abscess which has been incised and drained. Continue the expert supportive care that he has been receiving. We would recommend continuing to monitor this but no other intervention is needed at current. Qualifiers: Leukocytosis type: unspecified Qualified Code(s): D72.829 - Elevated white blood cell count, unspecified - Data of Consult Requesting Physician: Lóen Dominguez MD Primary Care Provider: Ozzie Fall MD - Consult Narrative Reason for consult: Leukocytosis History of present illness: Mr. Muñoz is a 31 year old male with HIV who is been admitted pancreatitis and presumed left foot cellulitis. His white blood cell count on 07/21/2017, 10 days prior to admission was normal. On day of admission, his white cell count jumped to 20,000. It is peaked at near 27,000. His left foot cellulitis/ inflammation is improving clinically on IV antibiotics. His pancreatitis symptoms also appeared to be improving clinically. He is currently resting comfortably in talking to his mother on the phone. Of note, he does show me an abscess beneath his scrotum which has been incised and drained and appears to be granulating well. He denies any fever, rigors or night sweats. Past Med Surg Social Fam HX - Past Medical History Medical history: GERD, HIV/AIDS (HIV), kidney stones, renal disease, other ( hidradenitis) Psychiatric history: anxiety, depression - Past Surgical History Surgical History: other (renal stents x 3, nephrostomy tube, testicular torsion fixation 2007) - Social History Smoking Status: Current every day smoker Packs per day: 1 Smokeless Tobacco Status: No Alcohol use: rarely Drug use: none - Family History Mother Hx Family Cardiac Disorders: Yes (Heart disease, Strokes, [place]) Hx Family Cancer: Yes Hx Family Endocrine Disorder: Yes (DM) Medications and Allergies Cetirizine HCl [Zyrtec] 10 mg PO AD 03/08/17 [History] Citalopram Hydrobromide [Celexa] 40 mg PO DAILY 03/08/17 [History] Doxycycline 100 mg PO BID 03/08/17 [History] Dronabinol [Marinol] 2.5 mg PO BID 03/08/17 [History] Efavirenz/Emtricitab/Tenofovir [Atripla Tablet] 1 tab PO DAILY 03/08/17 [History ] Gabapentin [Neurontin] 800 mg PO QID 03/08/17 [History] Glycopyrrolate [Robinul] 1 mg PO BID 03/08/17 [History] HydrOXYzine Pamoate [Vistaril] 50 mg PO BID 03/08/17 [History] Pnv with Ca,No.72/Iron/FA [Pnv Plus Multivit Tab] 1 tab PO DAILY [History] Benzoyl Peroxide 1 appl TP DAILY 03/27/17 [History] Ciclopirox 1 appl TP DAILY 03/27/17 [History] Divalproex (12 HR) [Depakote (12 HR)] 500 mg PO HS 03/27/17 [History] Meloxicam 15 mg PO DAILY 04/10/17 [History] Cetirizine HCl/Pseudoephedrine [Cetirizine-Pse ER 5-120 mg Tab] 1 each PO DAILY 07/19/17 [History] EPINEPHrine [Epipen] 0.3 mg IM ONCE PRN 07/19/17 [History] Fexofenadine HCl 180 mg PO AD 07/19/17 [History] Ranitidine HCl [Zantac] 300 mg PO DAILY 07/19/17 [History] Sulfamethoxazole/Trimeth DS [Bactrim DS] 1 each PO BID #20 tablet 07/24/17 [Rx] Penicillin VK [Pencillin VK] 500 mg PO TID 07/31/17 [History] 3 Allergy/AdvReac Type Severity Reaction Status Date / Time Cefaclor [From [facility]] Allergy Hives Verified 07/31/17 15:03 All systems: reviewed and no additional remarkable complaints except as stated Constitutional: Present: fatigue Eyes: Present: as per HPI Ears: Present: as per HPI Nose, mouth and throat: Present: as per HPI Cardiovascular: Present: as per HPI Gastrointestinal: Present: abdominal pain Genitourinary: genital lesions Integumentary: Present: erythema Neurological: Present: as per HPI Hematologic/Lymphatic: Present: easy bruising Oncology - Exam - Constitutional Vitals: Temp Pulse Resp BP Pulse Ox 99.1 F 92 15 97/63 98 08/08/17 07:12 08/08/17 07:12 08/08/17 07:12 08/08/17 07:12 08/08/17 07:12 - Head Head exam: Present: atraumatic, normal inspection, normocephalic - Eye Eye exam: Present: normal appearance, conjuntiva pink, sclera anicteric - ENT ENT exam: Present: mucous membranes moist, normal exam - Neck Neck exam: Present: full ROM, normal inspection - Respiratory Respiratory exam: Present: CTAB - Cardiovascular Cardiovascular exam: Present: RRR - GI/Abdominal GI/Abdominal exam: Present: normal bowel sounds, soft, tenderness - Extremities Exam Extremities exam: Present: joint swelling, tenderness - Neurological Exam Neurological exam: Present: alert, CN II-XII intact, oriented X3 Oncology - Results Labs: Short CBC 08/07/17 08/08/17 Range/Units 04:53 05:09 WBC 27.4 H 27.0 H (4.3-11.1) K/mcL Hgb 7.6 L 8.0 L (12.9-16.9) g/dL Hct 22.5 L 24.6 L (37.5-50.1) % Plt Count 333 384 (140-400) K/mcL Neutrophils # 18.1 H 23.8 H (1.6-8.9) K/mcL BMP 08/07/17 08/07/17 08/08/17 08:24 17:11 05:09 Sodium 139 Potassium 2.6 L 3.1 L 3.0 L Chloride 116 H Carbon Dioxide 13 L BUN 7 L Creatinine 2.98 H Glucose 95 Calcium 8.3 L Liver Function 08/08/17 Range/Units 05:09 Total Bilirubin < 0.2 L (0.2-1.2) mg/dL AST 19 (5-34) Units/L ALT 22 (0-55) Units/L Alkaline Phosphatase 139 H (38-126) Units/L Albumin 1.7 L (3.5-5.0) g/dL Consult Discharge Plan - Plan Referrals: Robert Meier MD [Partnered Physician] - (Patient will need a hospital f/ u after discharge. His prior appt. was cancelled due to being an inpatient. Thank you.) Ozzie Fall MD [Primary Care Provider] -
[2017-08-08] MEDS: hydrOXYzine pamoate 25 MG CAPSULE PO SCH ×2 (08:45→22:17)
[2017-08-08] MEDS: Nicotine 21 MG PATCH.TD24 TD SCH (08:46)
[2017-08-08] MEDS: Gabapentin 400 MG CAPSULE PO SCH ×4 (08:46→22:16)
[2017-08-08] MEDS ORDERED: Magnesium Sulfate 2 GM in D5% in Water 100 ML IVPB ONE (11:46)
[2017-08-08] MEDS ORDERED: Potassium Phosphate 44 MEQ in 0.9 % Sodium Chloride 250 ML IVPB ONE (11:55)
[2017-08-08] MEDS ORDERED: Vancomycin 1 EACH in D5% in Water 250 ML IVPB SCH (12:00)
--- NOTE | 2017-08-08 12:11 | Nephrology Progress Note ---
Date of Encounter: 08/10/17 Time of Encounter: 11:55 - Assessment and Plan (1) TESSIE (acute kidney injury) Status: Acute TESSIE on probable CKD. Etiology was initially felt to be secondary to volume depletion secondary to pancreatitis. His renal function initially improved, but the last few days his creatinine has slowly trended upward without good explanation. Of concern is the presence of hematuria and mild pyuria with negative urine culture. He also has urinary protein excretion which seems to have increased from about 1 gram in February to over 2 grams during the hospitalization. This is concerning for possible intrinsic cause for his renal dysfunction. He has a 24 hour urine which seems to be incomplete and I will repeat. Will repeat/initiate work-up for TESSIE with the labs as ordered. The patient may need a renal biopsy if creatinine continues to rise without clear explanation. I did talk with the patient for about 20 minutes regarding the possibility of transfer to a tertiary care institution. At this time he is hesitant to transfer far from his home. If no progress is made in regards to his various maladies by the end of the week he may reconsider transfer for a second opinion and ID evaluation. (2) Hypokalemia Status: Acute Continue replacement. Replace magnesium first. (3) Anemia Status: Chronic Hematology has evaluated. We will check iron stores, vitamin B12, and folate. Transfuse as needed. Monitor for bleeding. Patient has leukocytosis of unclear etiology. Oncology is following. Consider evaluation for opportunistic infections. Await results of viral load and CD4 count. Clinically patient does not appear to have systemic infection. Qualifiers: Anemia type: other cause Qualified Code(s): D64.89 - Other specified anemias (4) Metabolic acidosis Status: Acute Non-gap metabolic acidosis has recurred. We will order sodium bicarbonate infusion. Will order lactate, but doubt this will be abnormal. May need to get an ABG. (5) HIV (human immunodeficiency virus infection) Status: Chronic Primary team is checking viral load and CD4 count. (6) Atrophy of left kidney Status: Chronic Functionally patient likely only has one kidney. With his rising creatinine will check a renal ultrasound to ensure there is no obstruction especially with his history of nephrolithiasis. Subjective Principal diagnosis: TESSIE/CKD Interval history: Patient seen and evaluated. He continues to complain of vague abdominal discomfort that is diffuse and not associated with nausea or vomiting. His diarrhea has improved. He denies chest pain or shortness of breath. We had an extended discussion regarding the possibility of transfering to a tertiary care hospital. Objective - Vital Signs Vital signs: Vital Signs Temp Pulse Resp BP Pulse Ox 08/08/17 10:49 99.1 F 98 16 100/65 98 08/08/17 07:12 99.1 F 92 15 97/63 98 08/08/17 03:37 98.4 F 99 15 99/63 97 08/07/17 23:19 99.0 F 97 15 100/64 97 08/07/17 19:18 99.7 F H 102 15 110/69 96 08/07/17 15:15 99.1 F 100 16 100/68 96 Intake and Output 08/07/17 08/08/17 08/08/17 23:59 07:59 15:59 Intake Total 360 / 360 0 / 0 440 / 440 Output Total 0 / 0 450 / 450 0 / 0 Balance 360 / 360 -450 / -450 440 / 440 Intake: Oral 360 / 360 0 / 0 440 / 440 Output: Urine 0 / 0 450 / 450 0 / 0 Other: Meal Dinner Breakfast Percent of Meal Consumed 90% 50% # Voids 1 Weight 69.8 kg Blood Glucose* 128 91 94 Patient Weight 08/08/17 23:59 Weight 69.8 kg - General Appearance General appearance: Present: well-developed, well-nourished Exam: appears older than his stated age. EENT: Present: ATNC Neck: Present: supple Respiratory: Present: course breath sounds Cardiology: Present: no edema, regular rate, regular rhythm Gastrointestinal: Present: normoactive bowel sounds, no tenderness Integumentary: Present: warm and dry Neurologic: Present: alert and oriented x3 Musculoskeletal: Present: no cyanosis Psychiatric: Present: mood/affect appropriate - Lab 08/09/17 07:40 08/09/17 07:40 Most recent lab results Calcium 8.3 mg/dL (8.6-10.8) L 08/08/17 05:09 Phosphorus 1.7 mg/dL (2.3-4.7) L 08/08/17 05:09 Magnesium 1.7 mg/dL (1.6-2.6) 08/08/17 05:09 Urine Creatinine 17 mg/dL 08/06/17 12:30 Ur Total Protein 24 Hr 630 mg/day (0-299) H 08/06/17 12:30 Urine Sodium 46.0 mEq/L 08/06/17 12:30 Urine Total Protein 47 mg/dL (1-14) H 08/06/17 12:30 - VTE Documentation of Mechanical Device: Graduated compression elastic hosiery Consult Discharge Plan - Plan Referrals: Robert Meier MD [Partnered Physician] - (Patient will need a hospital f/ u after discharge. His prior appt. was cancelled due to being an inpatient. Thank you.) Ozzie Fall MD [Primary Care Provider] -
--- NOTE | 2017-08-08 14:54 | Internal Med Progress Note ---
<Nilton Darby - Last Filed: 08/08/17 14:51> Date of Encounter: 08/08/17 Time of Encounter: 14:51 - Assessment and plan (1) Cellulitis of foot, left Current Visit: Yes Status: Acute Assessment and plan: Patient has left foot swelling, erythema and edema and warmth concerning for cellulitis. This is associated with low-grade fever and WBC of 25. - Continues to improve clinically, Vancomycin level theraputic Plan: - Continue IV vancomycin - Monitor renal function. (2) Pancreatitis Current Visit: Yes Status: Acute Assessment and plan: Patient presented with abdominal pain, abdominal distension since Monday. Lipase >3000, Amylase >800. CT of the abdomen demonstrates pancreatic enlargement with surrounding fat stranding and swelling of the duodenum. - RUQ US does not demonstrate stones but does have sludge. - Patient denies hx of pancreatitis but does believe his symptoms are related to his recent renal stenting. - Denies hx of gallstones, alcohol use, previous pancreatitis episodes or significant family hx of pancreatitis - Patient has been taking his antiviral for HIV since 2008 without pancreatitis which is a potential complication of this medication. 08/02: Patient states the pain is the same as the day prior. Lipase trending down, patient sitting up in bed which is improvement from yesterday. 08/03: Lipase <1000, symptom resolving. Patient is improving clinically 08/04: Lipase significantly improved below 300, patient is tolerating full liquids and sitting in bed without discomfort. He does continue to have hypokalemia which may be due to third spacing that should not be as significant. He is tolerating advancements in his diet. He has had a low- grade fever with a high of 100 but no new findings or change in abdominal pain. Will keep an eye on vitals and lab results with a low suspicion for evaluating for potential pancreatic abscess versus pseudocyst. 08/05: Symptoms resolving, patient is tolerating oral intake. 08/06: Symptomatically resolved. 08/07: Patient is tolerating oral intake without recurrence of pain with food intake. 08/08 Stable Plan: - electrolyte replacement - monitor abdominal exam. Qualifiers: Chronicity: acute Pancreatitis type: other Acute pancreatitis complication: no infection or necrosis Qualified Code(s): K85.80 - Other acute pancreatitis without necrosis or infection (3) Hypokalemia Current Visit: Yes Status: Acute Assessment and plan: Patient continues to have hypokalemia after significant electrolyte replacement. There is concern for possible renal loss such as RTA as the patient's pancreatitis has resolved but continues to have hypokalemia. - Continues to have hypokalemia. - 24 hour potassium, sodium and magnesium collection complete. Discussed with Nephrology and repeating 24 hour urine collection and other work up. Plan: - 40meq potassium chloride by mouth twice a day - Continue to monitor electrolytes daily (4) History of stent insertion of renal artery Current Visit: Yes Status: Acute Assessment and plan: Stent seen on imaging in the right ureter, patient having adequate output without burning with urination or flank pain. - Stable (5) TESSIE (acute kidney injury) Current Visit: No Status: Acute Assessment and plan: Acute kidney injury on chronic kidney disease, significant history of obstructive uropathy. Likely secondary to Pancreatitis, Patient was admitted with nephrolithiasis at the begining of the month. Prior he had a GFR > 40 in February - Creatinine and GFR have worsened over night, Nephrology on board. If renal function does not improve or worsens he may require renal biopsy. Plan: - Continue oral intake - monitor with AM labs Avoid nephrotoxic medications and renally dose antibiotics. (6) HIV (human immunodeficiency virus infection) Current Visit: Yes Status: Chronic Assessment and plan: Stable. - Continue Antiretro-viral - CD4 count pending - Spoke to lab and they said they would be back around since the lab was a send out (7) SIRS (systemic inflammatory response syndrome) Current Visit: Yes Status: Resolved Assessment and plan: Resolved. (8) Hypomagnesemia Current Visit: Yes Status: Resolved Assessment and plan: Resolved. Plan: -Discontinue oral magnesium (9) Macrocytic anemia Current Visit: Yes Status: Acute Assessment and plan: Patient has macrocytic anemia in the setting of HIV, chronic kidney disease and chronic antiretroviral therapy. He also has acute pancreatitis and third spacing. - Hemoglobin is 7.7 down from 11.2. No signs of bleeding, also likely dilutional with high volume fluid replacement. - We will monitor hemoglobin level and replace if hemoglobin falls below 7.0 (10) Leukocytosis Current Visit: Yes Status: Acute Assessment and plan: Leukocytosis in the setting of pancreatitis. WBC 24. Patient is improving clinically. No other signs of infection at this time. -Repeat CT shows no development of pseudocyst at this time - Further examination findings demonstrate cellulitis of the left foot - Patient's leukocytosis is not resolving even on IV antibiotics, life coach and consult that in the case discussed. - As leukocytosis is not resolving, HIV viral load and CD4 count pending we will evaluate stool cultures including crypto. Plan: - IV vancomycin renally dosed per nephrology - Appreciate hematology/oncology recommendations Qualifiers: Qualified Code(s): D72.829 - Elevated white blood cell count, unspecified (11) Metabolic acidosis Current Visit: Yes Status: Acute Assessment and plan: Patient had a bicarbonate level of 10 and a chloride level of 124 in the sitting acute pancreatitis. - he has been receiving bicarbonate orally and renal function worsened decreasing bicarbonate level. Suspected renal loss. Plan: - Continue oral bicarbonate (12) DVT prophylaxis Current Visit: No Status: Acute Assessment and plan: Subcutaneous heparin every 8 hours - Subjective Interval history: Mr. Muñoz was seen and evaluated at bedside this morning. He denies any changes from yesterday's exam. He is awake alert and oriented in no acute distress. He understands that there are further testing recommended by nephrology and he is only concerned about his kidneys improving. The abdominal pain comes and goes but it does not prevents oral intake, sitting up and laying down without distress, bowel movements. - Constitutional Vitals: Temp Pulse Resp BP Pulse Ox 99.1 F 98 16 100/65 98 08/08/17 10:49 08/08/17 10:49 08/08/17 10:49 08/08/17 10:49 08/08/17 10:49 Exam: General: Patient alert, awake, oriented 3, interactive, in no acute distress HEENT: Normocephalic, atraumatic, pupils equal reactive to light, nasal cavity patent and open septum median position, oral mucosa moist, uvula midline, neck supple trachea midline no palpable lymphadenopathy, no thyromegaly. Chest: Symmetric bilateral correlating with respiratory effort, effort nonlabored. Cardiac: Regular rate and rhythm, positive S1 and S2. no bruits appreciated bilateral carotids, Radial pulses 2+ bilateral, posterior tibial and dorsal pedal pulses 2+ bilateral. Respiratory: Clear to auscultation all lung [place] Abdomen: Soft, nontender to palpation, positive bowel sounds, no palpable masses appreciated on examination Extremities: Symmetric bilateral, left lower foot erythema and edema improving. Neurologic: No focal deficits appreciated on examination. Face symmetric, muscle strength symmetric bilateral upper and lower extremities. Internal Medicine: Result - Labs CBC & Chem 7: 08/08/17 05:09 08/08/17 12:55 Labs: Short CBC 08/07/17 08/08/17 Range/Units 04:53 05:09 WBC 27.4 H 27.0 H (4.3-11.1) K/mcL Hgb 7.6 L 8.0 L (12.9-16.9) g/dL Hct 22.5 L 24.6 L (37.5-50.1) % Plt Count 333 384 (140-400) K/mcL Neutrophils # 18.1 H 23.8 H (1.6-8.9) K/mcL BMP 08/07/17 08/08/17 08/08/17 17:11 05:09 12:55 Sodium 139 Potassium 3.1 L 3.0 L Chloride 116 H Carbon Dioxide 13 L BUN 7 L Creatinine 2.98 H 2.98 H Glucose 95 Calcium 8.3 L Liver Function 08/08/17 Range/Units 05:09 Total Bilirubin < 0.2 L (0.2-1.2) mg/dL AST 19 (5-34) Units/L ALT 22 (0-55) Units/L Alkaline Phosphatase 139 H (38-126) Units/L Albumin 1.7 L (3.5-5.0) g/dL - VTE Documentation of Mechanical Device: Graduated compression elastic hosiery Consult Discharge Plan - Plan Referrals: Robert Meier MD [Partnered Physician] - (Patient will need a hospital f/ u after discharge. His prior appt. was cancelled due to being an inpatient. Thank you.) Ozzie Fall MD [Primary Care Provider] - <León Dominguez - Last Filed: 08/08/17 19:40> Date of Encounter: 08/08/17 - Constitutional Vitals: Temp Pulse Resp BP Pulse Ox 99.3 F 103 15 110/62 98 08/08/17 15:31 08/08/17 15:31 08/08/17 15:31 08/08/17 15:31 08/08/17 15:31 Internal Medicine: Result - Labs CBC & Chem 7: 08/08/17 05:09 08/08/17 12:55 Labs: Short CBC 08/08/17 Range/Units 05:09 WBC 27.0 H (4.3-11.1) K/mcL Hgb 8.0 L (12.9-16.9) g/dL Hct 24.6 L (37.5-50.1) % Plt Count 384 (140-400) K/mcL Neutrophils # 23.8 H (1.6-8.9) K/mcL BMP 08/08/17 08/08/17 05:09 12:55 Sodium 139 Potassium 3.0 L Chloride 116 H Carbon Dioxide 13 L BUN 7 L Creatinine 2.98 H 2.98 H Glucose 95 Calcium 8.3 L Liver Function 08/08/17 Range/Units 05:09 Total Bilirubin < 0.2 L (0.2-1.2) mg/dL AST 19 (5-34) Units/L ALT 22 (0-55) Units/L Alkaline Phosphatase 139 H (38-126) Units/L Albumin 1.7 L (3.5-5.0) g/dL - Impressions Impressions Retroperitoneum Ultrasound 08/08/17 14:30 IMPRESSION: Mild right-sided hydronephrosis is identified. No left-sided hydronephrosis. Mild increased echotexture within the kidneys could be related to medical renal disease. Atrophy on the left. D/ / Jimmie Weber MD / Jimmie Weber MD Interpreting Provider: Jimmie Weber MD - Attending Attestation I examined this patient and my medical decision-making was reviewed with the Resident Physician. I agree with the documented findings, disposition and treatment plan as described except to the extent set forth below. I will start tapering IV opiates and start oral pain medication. I discussed the case with Dr. Brown for urology who will evaluate the patient tomorrow. He recommends postvoid residual. He is at high risk for morbidity, mortality and complications due to frequent doses of IV opiates for pain.
[2017-08-08] MEDS ORDERED: Aminoglycoside Consult 1 EACH MC ONE (16:34)
[2017-08-08] MEDS: Divalproex (12 HR) 500 MG TABLET PO SCH (22:16)
[2017-08-08] MEDS: EFAVIRENZ/EMTRICITAB/TENOFOVIR 1 EACH TABLET PO SCH (22:16)
[2017-08-09] MEDS: *HR* HYDROmorphone (PF) 1 MG/ML SYRINGE IVP PRN ×3 (01:21→08:05)
[2017-08-09] MEDS: *HR* Heparin 5,000 UNIT/ML VIAL SQ SCH ×2 (06:15→13:01)
[2017-08-09] MEDS: hydrOXYzine pamoate 25 MG CAPSULE PO SCH (08:04)
[2017-08-09] MEDS: Nicotine 21 MG PATCH.TD24 TD SCH (08:04)
[2017-08-09] MEDS: Gabapentin 400 MG CAPSULE PO SCH ×3 (08:04→16:35)
[2017-08-09 08:13] LABS: Urine Magnesium mg/dL 4.2 mg/dL
[2017-08-09 08:33] LABS: Alanine Aminotransferase 24 Units/L (0-55); Albumin/Globulin Ratio 0.3 (1.1-2.2); Alkaline Phosphatase 142 Units/L (38-126); Aspartate Amino Transferase 22 Units/L (5-34); BUN/Creatinine Ratio 3 (6-26); Blood Urea Nitrogen 10 mg/dL (8-26); Calcium 8.8 mg/dL (8.6-10.8); Carbon Dioxide 13 mEq/L (19-29); Chloride 115 mEq/L (98-109); Globulin 5.3 g/dL (2.4-3.5); Glucose 87 mg/dL (70-99); Osmolality,Calculated 286 (280-300); Sodium 139 mEq/L (136-145); Total Protein 7.1 g/dL (6.0-8.3); eGFR For African Americans 26 (> 60); eGFR For Non-African Americans 21 (> 60)
[2017-08-09 08:34] LABS: Albumin 1.8 g/dL (3.5-5.0); Bilirubin,Total < 0.2 mg/dL (0.2-1.2); Phosphorous 3.5 mg/dL (2.3-4.7)
--- NOTE | 2017-08-09 08:46 | Urology - Consult Note ---
Date of Encounter: 08/09/17 Time of Encounter: 08:44 - Assessment and Plan (1) TESSIE (acute kidney injury) Current Visit: No Status: Acute Assessment and plan: 31 year old man with a history of right ureteral stent placement and now with worsening renal function. He has a mild residual today, but does seem like he is voiding well. We discussed catheter placement to maximally drain his urinary tract, but he would like to hold off. We will follow his renal function. If it continues to worsen, then I would recommend catheter placement to see how his renal function does. (2) Nephrolithiasis Current Visit: No Status: Acute Assessment and plan: His right ureteral stent is in good position. We will arrange for stone treatment with Dr. Meier once he has recovered from his current hospital stay. Urology CN:HPI Consult date: 08/09/17 Reason for consult Urology: Other (right ureteral stibe) Requesting physician: León Dominguez History of present illness: 31 year old man with an atrophic left kidney and history of nephrolithiasis s/p right ureteral stent placement by Dr. Meier on 07/20/2017 for an obstructing right ureteral stone was admitted for pancreatitis. He reports some left lower quadrant pain. He had a CT on 08/04/2017 which showed good position of the right ureteral stent. The stone was still seen in the ureter. He has been voiding well. He denies any dysuria. He is tolerating the stent. Past Med Surg Social Fam HX - Past Medical History Medical history: GERD, HIV/AIDS (HIV), kidney stones, renal disease, other ( hidradenitis) Psychiatric history: anxiety, depression - Past Surgical History Surgical History: other (renal stents x 3, nephrostomy tube, testicular torsion fixation 2007) - Social History Smoking Status: Current every day smoker Packs per day: 1 Smokeless Tobacco Status: No Alcohol use: rarely Drug use: none - Family History Mother Hx Family Cardiac Disorders: Yes (Heart disease, Strokes, [place]) Hx Family Cancer: Yes Hx Family Endocrine Disorder: Yes (DM) Medications and Allergies Cetirizine HCl [Zyrtec] 10 mg PO AD 03/08/17 [History] Citalopram Hydrobromide [Celexa] 40 mg PO DAILY 03/08/17 [History] Doxycycline 100 mg PO BID 03/08/17 [History] Dronabinol [Marinol] 2.5 mg PO BID 03/08/17 [History] Efavirenz/Emtricitab/Tenofovir [Atripla Tablet] 1 tab PO DAILY 03/08/17 [History ] Gabapentin [Neurontin] 800 mg PO QID 03/08/17 [History] Glycopyrrolate [Robinul] 1 mg PO BID 03/08/17 [History] HydrOXYzine Pamoate [Vistaril] 50 mg PO BID 03/08/17 [History] Pnv with Ca,No.72/Iron/FA [Pnv Plus Multivit Tab] 1 tab PO DAILY [History] Benzoyl Peroxide 1 appl TP DAILY 03/27/17 [History] Ciclopirox 1 appl TP DAILY 03/27/17 [History] Divalproex (12 HR) [Depakote (12 HR)] 500 mg PO HS 03/27/17 [History] Meloxicam 15 mg PO DAILY 04/10/17 [History] Cetirizine HCl/Pseudoephedrine [Cetirizine-Pse ER 5-120 mg Tab] 1 each PO DAILY 07/19/17 [History] EPINEPHrine [Epipen] 0.3 mg IM ONCE PRN 07/19/17 [History] Fexofenadine HCl 180 mg PO AD 07/19/17 [History] Ranitidine HCl [Zantac] 300 mg PO DAILY 07/19/17 [History] Sulfamethoxazole/Trimeth DS [Bactrim DS] 1 each PO BID #20 tablet 07/24/17 [Rx] Penicillin VK [Pencillin VK] 500 mg PO TID 07/31/17 [History] 3 Allergy/AdvReac Type Severity Reaction Status Date / Time Cefaclor [From [facility]] Allergy Hives Verified 07/31/17 15:03 Review of Systems - Constitutional no chills, no fever(s) - EENT Nose, mouth and throat: no dizziness - Cardiovascular no chest pain - Respiratory no dyspnea - Gastrointestinal no nausea, no vomiting - Genitourinary no flank pain, no hematuria - Musculoskeletal no back pain - Integumentary no erythema, no rash - Neurological no weakness - Psychiatric no suicidal ideation - Hematologic/Lymphatic no easy bleeding - Allergic/Immunologic no wheezing Exam Initial Vital Signs Temp Pulse Resp BP Pulse Ox 97.6 F 85 16 123/84 100 07/31/17 14:58 07/31/17 14:58 07/31/17 14:58 07/31/17 14:58 07/31/17 14:58 - General physical appearance Present: well developed, well nourished, no distress - Eyes Absent: icteric - ENT Present: normal nares - Neck Present: trachea midline - Respiratory Present: normal respiratory effort - Cardiovascular Cardiovascular exam IM: RRR - Abdomen Abdomen: Present: soft Urology Results - Labs 08/08/17 05:09 08/09/17 07:40 Abnormal lab results WBC 27.0 K/mcL (4.3-11.1) H 08/08/17 05:09 RBC 2.35 M/mcL (4.19-5.50) L 08/08/17 05:09 Hgb 8.0 g/dL (12.9-16.9) L 08/08/17 05:09 Hct 24.6 % (37.5-50.1) L 08/08/17 05:09 MCV 104.7 fL (83.0-100.0) H 08/08/17 05:09 MCH 34.0 pg (28.0-33.3) H 08/08/17 05:09 RDW 16.7 % (11.5-14.5) H 08/08/17 05:09 MPV 9.3 fL (9.4-12.4) L 08/08/17 05:09 Metamyelocytes % 2.0 % (0) H 08/07/17 04:53 Myelocytes % 2.0 % (0) H 08/08/17 05:09 Neutrophils # 23.8 K/mcL (1.6-8.9) H 08/08/17 05:09 Basophils # 0.5 K/mcL (0.0-0.2) H 08/08/17 05:09 Polychromasia 1+ (Not Present) A 08/08/17 05:09 Anisocytosis 1+ (Not Present) A 08/08/17 05:09 Microcytosis Present (Not Present) A 08/07/17 04:53 Macrocytosis Present (Not Present) A 08/08/17 05:09 ESR 110 mm/hr (0-10) H 08/07/17 17:11 Potassium 3.0 mEq/L (3.5-4.5) L 08/09/17 07:40 Chloride 115 mEq/L (98-109) H 08/09/17 07:40 Carbon Dioxide 13 mEq/L (19-29) L 08/09/17 07:40 Creatinine 3.34 mg/dL (0.72-1.25) H 08/09/17 07:40 Est GFR ( Amer) 26 (> 60) L 08/09/17 07:40 Est GFR (Non-Af Amer) 21 (> 60) L 08/09/17 07:40 BUN/Creatinine Ratio 3 (6-26) L 08/09/17 07:40 POC Glucose 102 (58-89) H 08/08/17 15:52 Total Bilirubin < 0.2 mg/dL (0.2-1.2) L 08/09/17 07:40 Alkaline Phosphatase 142 Units/L (38-126) H 08/09/17 07:40 C-Reactive Protein 206 mg/L (Less than 5) H 08/07/17 17:11 Albumin 1.8 g/dL (3.5-5.0) L 08/09/17 07:40 Globulin 5.3 g/dL (2.4-3.5) H 08/09/17 07:40 Albumin/Globulin Ratio 0.3 (1.1-2.2) L 08/09/17 07:40 Triglycerides 229 mg/dL (< 150) H 08/01/17 05:48 VLDL Cholesterol, Calc 46 mg/dL (< 31) H 08/01/17 05:48 HDL Cholesterol 20 mg/dL (40-59) L 08/01/17 05:48 Cholesterol/HDL Ratio 7.6 (0-4.9) H 08/01/17 05:48 Amylase 805 Units/L (25-125) H 08/01/17 05:48 Lipase 476 Units/L (8-78) H 08/09/17 07:40 Urine Protein 100 mg/dL (Neg-Trace) H 08/05/17 12:30 Urine Glucose (UA) 250 mg/dL (Normal) H 08/05/17 12:30 Urine Blood Moderate (Negative) H 08/05/17 12:30 Ur Leukocyte Esterase Small (Negative) H 08/05/17 12:30 Urine Microscopic RBC 15-30 per hpf (0-3) H 08/05/17 12:30 Urine Microscopic WBC 3-5 per hpf (0-3) H 08/05/17 12:30 Ur Squamous Epith Cells Many per lpf (None-Few) H 08/05/17 12:30 Ur Culture Indicated? YES (NO) A 07/31/17 15:09 Ur Creatinine mg/Day 215 mg/d (4516-6854) L 08/06/17 13:42 Ur Creatinine 24 Hour 0.23 g/day (0.71-1.65) L 08/06/17 12:30 Ur Total Protein 24 Hr 630 mg/day (0-299) H 08/06/17 12:30 Protein/Creatinin Ratio 2.77 mg/mg (0-0.20) H 08/06/17 12:30 Urine Total Protein 47 mg/dL (1-14) H 08/06/17 12:30 Vancomycin Trough 21.7 mcg/mL (10-20) H* 08/08/17 10:20 Diabetes panel 08/08/17 08/09/17 Range/Units 12:55 07:40 Sodium 139 (136-145) mEq/L Potassium 3.0 L (3.5-4.5) mEq/L Chloride 115 H (98-109) mEq/L Carbon Dioxide 13 L (19-29) mEq/L BUN 10 (8-26) mg/dL Creatinine 2.98 H 3.34 H (0.72-1.25) mg/dL Glucose 87 (70-99) mg/dL Calcium 8.8 (8.6-10.8) mg/dL AST 22 (5-34) Units/L ALT 24 (0-55) Units/L Alkaline Phosphatase 142 H (38-126) Units/L Albumin 1.8 L (3.5-5.0) g/dL Calcium panel 08/09/17 08/09/17 Range/Units 07:40 07:40 Calcium 8.8 (8.6-10.8) mg/dL Phosphorus 3.5 D (2.3-4.7) mg/dL Albumin 1.8 L (3.5-5.0) g/dL Pituitary panel 09/19/17 09/20/17 Range/Units 12:55 07:40 Sodium 139 (136-145) mEq/L Potassium 3.0 L (3.5-4.5) mEq/L Chloride 115 H (98-109) mEq/L Carbon Dioxide 13 L (19-29) mEq/L BUN 10 (8-26) mg/dL Creatinine 2.98 H 3.34 H (0.72-1.25) mg/dL Glucose 87 (70-99) mg/dL Calcium 8.8 (8.6-10.8) mg/dL Adrenal panel 08/08/17 08/09/17 Range/Units 12:55 07:40 Sodium 139 (136-145) mEq/L Potassium 3.0 L (3.5-4.5) mEq/L Chloride 115 H (98-109) mEq/L Carbon Dioxide 13 L (19-29) mEq/L BUN 10 (8-26) mg/dL Creatinine 2.98 H 3.34 H (0.72-1.25) mg/dL Glucose 87 (70-99) mg/dL Calcium 8.8 (8.6-10.8) mg/dL Total Bilirubin < 0.2 L (0.2-1.2) mg/dL AST 22 (5-34) Units/L ALT 24 (0-55) Units/L Alkaline Phosphatase 142 H (38-126) Units/L Albumin 1.8 L (3.5-5.0) g/dL All other labs normal. - Imaging CT scan - abdomen: report reviewed, image reviewed CT scan - pelvis: report reviewed, image reviewed Consult Discharge Plan - Plan Referrals: Robert Meier MD [Partnered Physician] - (Patient will need a hospital f/ u after discharge. His prior appt. was cancelled due to being an inpatient. Thank you.) Ozzie Fall MD [Primary Care Provider] -
[2017-08-09 09:17] LABS: Mean Corpuscular Volume 105.5 fL (83.0-100.0); Red Cell Distribution Width 16.3 % (11.5-14.5)
[2017-08-09 09:18] LABS: CD3 Percent 78 % (62-87); CD8 Percent 22 % (15-46)
[2017-08-09 09:19] LABS: Hematocrit 22.9 % (37.5-50.1); Hemoglobin 7.3 g/dL (12.9-16.9); Mean Corpuscular HGB Conc 31.9 g/dL (31.6-35.5); Mean Corpuscular Hemoglobin 33.6 pg (28.0-33.3); Mean Platelet Volume 9.5 fL (9.4-12.4); Platelet Count 472 K/mcL (140-400); Red Blood Count 2.17 M/mcL (4.19-5.50)
[2017-08-09] MEDS: *HR* OxyCODONE ER (12 HR) 10 MG TABLET PO SCH ×2 (09:41→16:18)
[2017-08-09 10:25] LABS: Eosinophils # 0.6 K/mcL (0.0-0.6); Hypersegmented Neutrophils Present (Not Present); Lymphocytes # 5.1 K/mcL (0.6-4.6); Monocytes # 1.7 K/mcL (0.0-1.3); Neutrophils # 20.9 K/mcL (1.6-8.9)
[2017-08-09 10:26] LABS: Anisocytosis 1+ (Not Present); Macrocytosis Present (Not Present); Platelet Estimate Normal (Normal); Polychromasia 1+ (Not Present)
[2017-08-09] MEDS: Vancomycin 1,250 MG in D5% in Water 250 ML IVPB SCH (11:56)
--- NOTE | 2017-08-09 12:05 | Discharge Summary ---
Date of Encounter: 08/09/17 Time of Encounter: 12:03 - Discharge Diagnosis (1) HIV (human immunodeficiency virus infection) Priority: Secondary Status: Chronic (2) Atrophy of left kidney Priority: Secondary Status: Chronic (3) Pancreatitis Priority: Primary Status: Acute Qualifiers: Chronicity: acute Pancreatitis type: other Acute pancreatitis complication: no infection or necrosis Qualified Code(s): K85.80 - Other acute pancreatitis without necrosis or infection (4) Cellulitis of foot, left Priority: Secondary Status: Acute (5) Acute on chronic renal failure Priority: Secondary Status: Acute Qualifiers: Acute renal failure type: with other specified pathological lesion Chronic kidney disease stage: stage 3 (moderate) Qualified Code(s): N17.8 - Other acute kidney failure; N18.3 - Chronic kidney disease, stage 3 (moderate) - Discharge Medications Home Medications: Cetirizine HCl [Zyrtec] 10 mg PO AD 03/08/17 [History] Citalopram Hydrobromide [Celexa] 40 mg PO DAILY 03/08/17 [History] Doxycycline 100 mg PO BID 03/08/17 [History] Dronabinol [Marinol] 2.5 mg PO BID 03/08/17 [History] Efavirenz/Emtricitab/Tenofovir [Atripla Tablet] 1 tab PO DAILY 03/08/17 [History ] Gabapentin [Neurontin] 800 mg PO QID 03/08/17 [History] Glycopyrrolate [Robinul] 1 mg PO BID 03/08/17 [History] HydrOXYzine Pamoate [Vistaril] 50 mg PO BID 03/08/17 [History] Pnv with Ca,No.72/Iron/FA [Pnv Plus Multivit Tab] 1 tab PO DAILY [History] Benzoyl Peroxide 1 appl TP DAILY 03/27/17 [History] Ciclopirox 1 appl TP DAILY 03/27/17 [History] Divalproex (12 HR) [Depakote (12 HR)] 500 mg PO HS 03/27/17 [History] Meloxicam 15 mg PO DAILY 04/10/17 [History] Cetirizine HCl/Pseudoephedrine [Cetirizine-Pse ER 5-120 mg Tab] 1 each PO DAILY 07/19/17 [History] EPINEPHrine [Epipen] 0.3 mg IM ONCE PRN 07/19/17 [History] Fexofenadine HCl 180 mg PO AD 07/19/17 [History] Ranitidine HCl [Zantac] 300 mg PO DAILY 07/19/17 [History] Sulfamethoxazole/Trimeth DS [Bactrim Ds] 1 each PO BID #20 tablet 07/24/17 [Rx] Penicillin VK 500 mg PO TID 07/31/17 [History] Allergies/Adverse Reactions: 3 Allergy/AdvReac Type Severity Reaction Status Date / Time Cefaclor [From [facility]] Allergy Hives Verified 07/31/17 15:03 Procedures/tests Complete & Pending: Procedures Performed prior 72 hours Category Date Time Status US retroperitoneal limited [US] Stat Exams 08/08/17 14:30 Completed Date of admission: 07/31/17 19:19 Primary care physician: Ozzie Fall MD Consults: 07/31/17 22:15 Consult to Surgery [CONS] Routine Consulting Provider: Surgery [facility] Reason for Consult: sirs, abdo pain, pancreatitis vs. perf ? Call Completed: Yes 08/04/17 11:17 Consult to Infectious Diseases [CONS] Routine Consulting Provider: Infectious Disease Rylee Reason for Consult: hiv, pancreatitis, increasing leukocystosis Time Notified: 11:18 Call Completed: Yes 08/05/17 08:19 Consult to Nephrology [CONS] Routine Consulting Provider: Kidney Rylee/COURTNEY/THAD/RITESH Reason for Consult: hypokalemia Call Completed: Yes 08/07/17 17:29 Consult to Oncology Hematology [CONS] Stat Consulting Provider: Chidi Mckay Reason for Consult: Chronic leukocytosis concern for underlying hematologic disorder Call Completed: Yes 08/08/17 18:15 Consult to Urology [CONS] Routine Consulting Provider: Urology Rylee Reason for Consult: hydronephrosis s/p stent. L flank pain Call Completed: Yes - Patient Status Disposition: Transfer Other Condition: Fair Functional capacity at discharge: independent ambulation Overall status at discharge: patient is progressing back to baseline - Discharge Instructions Follow Up With: Robert Meier MD [Partnered Physician] - (Patient will need a hospital f/ u after discharge. His prior appt. was cancelled due to being an inpatient. Thank you.) Ozzie Fall MD [Primary Care Provider] - - Diet and Activity Activity: increase activity as tolerated, other Diet: regular diet Hospital course: This is a brief description of hospital course. For more details please refer to consultation and progress notes. Mr. Muñoz is a 31 year old male with past medical history significant for HIV infection currently on HAART medication who presented to the hospital for evaluation of abdominal pain. His lipase was elevated and he was admitted to the medical service with a diagnosis of acute pancreatitis. General surgery was consulted due to concern for duodenitis versus duodenal perforation. These were ruled out. He was treated conservatively for acute pancreatitis. There was no evidence of necrosis, hemorrhage or pseudocyst formation. His abdominal pain improved with conservative management. He was also noted to have acute on chronic renal failure. Nephrology was consulted. They recommended continuing IV fluid hydration and potassium repletion. Urine studies were obtained. His creatinine has been trending up in spite of an initial improvement and treatment with IV fluids. His creatinine today is 3.4 from 2.9 yesterday. Based on glucose urea with normal glycemia, proteinuria, metabolic acidosis and worsening renal failure I have high degree of suspicion for tenofovir nephrotoxicity. Patient has been taking Atripla half-way. I cannot stop this medication because of long-term use and HIV infection status. At this time I do not have an infectious disease specialist available in our hospital. The patient will be need to be evaluated by an HIV specialist and therefore will require transfer to [facility]. I have explained the plan and the patient verbalizes agreement. The patient received treatment with IV vancomycin for cellulitis of his foot and this has improved. - Time Spent with Patient Total time spent providing and/or coordinating discharge services: Greater than 30 minutes - Constitutional Vitals: Temp Pulse Resp BP Pulse Ox 98.0 F 98 18 100/63 95 08/09/17 08:00 08/09/17 08:00 08/09/17 08:00 08/09/17 08:00 08/09/17 08:00 General appearance: Present: A&O X 3 - Respiratory Respiratory exam: Present: CTAB. Absent: accessory muscle use, rales, rhonchi, wheezes - Cardiovascular Cardiovascular exam: Present: RRR, +S1, +S2. Absent: diastolic murmur, gallop, rubs, systolic murmur - GI/Abdominal GI/Abdominal exam: Present: normal bowel sounds, soft, no peritoneal signs. Absent: distended, tenderness - VTE Documentation of Mechanical Device: Graduated compression elastic hosiery
[2017-08-09] MEDS ORDERED: Magnesium Sulfate 2 GM in D5% in Water 100 ML IVPB ONE (12:11)
[2017-08-09] MEDS ORDERED: Sodium Bicarbonate 150 MEQ in D5% in Water 1,000 ML IVC SCH (12:15)
[2017-08-09 12:34] LABS: Rheumatoid Factor < 15 IU/mL (0-29)
[2017-08-09 12:44] VITALS: BP 101/68
[2017-08-09] MEDS: *HR* OxyCODONE Immed Rel 5 MG TABLET PO PRN ×2 (13:00→16:38)
[2017-08-09 13:19] LABS: Folate 11.2 ng/mL (7.0-31.4)
[2017-08-09 13:20] LABS: Vitamin B12 > 2000 pg/mL (213-816)
[2017-08-10 07:41] LABS: Complement Component 3 168 mg/dL (88-201); Complement Component 4 43 mg/dL (10-40)
[2017-08-10 07:45] LABS: Myeloperoxidase Ab 5 AU/mL (0-19); Serine Protease-3 Antibody 1 AU/mL (0-19)
[2017-08-10 14:07] LABS: HIV-1 Viral Load Interp NOT DETECTED (Not Detected)
[2017-08-11 12:44] LABS: ANA IgG by ELISA NONE DETECTED (None Detected)
[2017-08-12 16:23] LABS: Alpha 2 Globulin (PEP) 1.12 g/dL (0.48-1.05); Beta Globulin (PEP) 1.15 g/dL (0.48-1.10)
[2017-08-13 03:10] LABS: IFE Reflexed IFE Done; Immunoglobulin A 548 mg/dL (68-408); Immunoglobulin G 1290 mg/dL (768-1632)
[2017-08-13 03:22] LABS: Immunoglobulin M 94 mg/dL (35-263)
== END 2017-08-09 16:35 | disposition other institution (70) | DRG 282 ==
LOC: EMEROO 14:47 → SUATTDRO 19:19 → 3ANU 19:19
PROVIDERS: ADMIT Nurse Practitioner Family; ATTEND Internal Medicine